=== PATIENT | female | born 1930 | race Caucasian/White ===

== ENCOUNTER 2016-06-28 16:25 | Inpatient (IN) | payer MEDICARE, OTHER ==
[~2016-06-28] VITALS: Ht 157.5 cm; Wt 54.3 kg
[~2016-06-28 16:25] MED LIST: AMLO-145 PO; ART2 PO; ATEN-138 PO; AZIL1TAB PO; CLON-339 PO; DEXILENT PO; DICL100G37 TOP; FAMO20TA44 PO; IMIP10TA2 PO; ISOS60TA52 PO; MONT10TA21 PO; RASA1TAB PO; TRAM50TA2 PO; [UNRECOGNIZED DRUG - CODE] PO
[2016-06-28] MEDS ORDERED: CEFEPIME 2GM/50 ML (PMX) 50 ML IVPB STA ×2 (16:28→17:42)
[2016-06-28] MEDS ORDERED: SOD CHLORIDE 0.9% 1,000 ML IV STA ×2 (16:29)
[2016-06-28] MEDS ORDERED: VANCOMYCIN 1 GM (PMX) 250 ML IVPB ONE ×2 (16:30→18:00)
[2016-06-28 17:08] LABS: ADD SCAN DIFF NO
[2016-06-28 17:10] LABS: BASOPHILS % 0.2 % (0.0-2.0); EOSINOPHILS % 0.1 % (0.0-7.0); HEMATOCRIT 36.9 % (37.0-47.0); HEMOGLOBIN 11.7 g/dl (12.0-16.0); LYMPHOCYTES # 0.7 10^3/ul (0.8-2.9); LYMPHOCYTES % 8.5 % (15.0-51.0); MEAN CORPUSCULAR HEMOGLOBIN 28.1 pg (29.0-33.0); MEAN CORPUSCULAR HGB CONC 31.7 g/dl (32.0-37.0); MEAN CORPUSCULAR VOLUME 88.5 fl (82.0-101.0); MONOCYTE # 0.8 10^3/ul (0.3-0.9); MONOCYTES % 9.3 % (0.0-11.0); NEUTROPHIL # 6.8 10^3/ul (1.6-7.5); NEUTROPHILS % 81.7 % (39.0-77.0); PLATELET COUNT 159 10^3/UL (140-415); RED BLOOD COUNT 4.17 10^6/ul (4.20-5.40); RED CELL DISTRIBUTION WIDTH 13.1 % (11.5-14.5); WHITE BLOOD COUNT 8.4 10^3/ul (4.8-10.8)
[2016-06-28 17:25] LABS: INR 0.95; PROTIME 12.7 Sec (12.2-14.2)
[2016-06-28 17:26] LABS: PARTIAL THROMBOPLASTIN TIME 29.9 Sec (25.0-35.0)
[2016-06-28 17:46] LABS: ADD UMIC YES; URINE BILIRUBIN (Dip) NEGATIVE (NEGATIVE); URINE BLOOD (Dip) 3+ (NEGATIVE); URINE COLOR LT. YELLOW (YELLOW); URINE GLUCOSE (Dip) NEGATIVE (NEGATIVE); URINE KETONES (Dip) NEGATIVE (NEGATIVE); URINE LEUKOCYTE ESTERASE (Dip) 2+ (NEGATIVE); URINE NITRITE (Dip) POSITIVE (NEGATIVE); URINE TOTAL PROTEIN (Dip) TRACE (NEGATIVE); URINE UROBILINOGEN (Dip) 0.2 E.U./dL (0.1-1.0)
[2016-06-28 17:55] LABS: BACTERIA,URINE FEW; SQUAMOUS EPITHELIAL CELL,UR MODERATE; URINE RBCS 0-2 /HPF (0)
[2016-06-28] MEDS ORDERED: ACETAMINOPHEN 325 MG TAB PO ONE (18:00)
--- NOTE | 2016-06-28 18:06 | RADRPT ---
PROCEDURE: XR Chest 1 view. CLINICAL INDICATION: Shortness of breath, possible sepsis. TECHNIQUE: AP views of the chest were obtained. COMPARISON: June 19, 2015 FINDINGS: The heart is large. Calcified atherosclerosis is noted in the aorta. The lungs are hypoinflated. E ventration of the right hemidiaphragm is identified. Atelectasis versus mild infiltrates are identi fied in the medial right lower lobe. Atelectasis is noted at the left lung base. The osseous struct ures are osteopenic, but appear grossly intact. Degenerative changes are seen in the shoulders. IMPRESSION: Cardiomegaly with calcified atherosclerosis in the aorta. Eventration of the right hemidiaphragm. Atelectasis versus mild infiltrates in the medial right low er lobe. Atelectasis at the left lung base. RPTAT: AA .Ta Urrutia MD, Date Time Electronically viewed and signed by .Ta Urrutia MD, MD on 06/28/2016 18:06 .P/
[2016-06-28 18:07] LABS: ALANINE AMINOTRANSFERASE 79 IU/L (13-69); ALBUMIN 3.7 g/dl (3.3-4.9); ALKALINE PHOSPHATASE 155 IU/L (42-121); ANION GAP 12 (8-16); ASPARTATE AMINO TRANSFERASE 89 IU/L (15-46); BILIRUBIN,INDIRECT 0.1 mg/dl (0-1.1); BILIRUBIN,TOTAL 0.1 mg/dl (0.2-1.3); BLOOD UREA NITROGEN 23 mg/dl (7-20); CARBON DIOXIDE 24 mmol/L (21-31); CHLORIDE 102 mmol/L (97-110); CREATININE 0.71 mg/dl (0.44-1.00); GLUCOSE 132 mg/dl (70-220); POTASSIUM 4.4 mmol/L (3.5-5.1); SODIUM 134 mmol/L (135-144); TOTAL PROTEIN 7.4 g/dl (6.1-8.1)
[2016-06-28 18:23] LABS: TROPONIN-I < 0.012 ng/ml (0.00-0.12)
[2016-06-28] MEDS ORDERED: MECL-90 PO (18:30)
[2016-06-28] MEDS ORDERED: DEXL60CA2 PO (18:31)
[2016-06-28] MEDS ORDERED: OLME1TAB35 PO (18:31)
[2016-06-28] MEDS ORDERED: FAMO40TA52 PO (18:32)
[2016-06-28] MEDS ORDERED: OXYB5TAB7 PO (18:35)
--- NOTE | 2016-06-28 18:38 | RADRPT ---
PROCEDURE: CT abdomen and pelvis without contrast. CLINICAL INDICATION: Possible sepsis TECHNIQUE: CT scan of the abdomen and pelvis without contrast was performed. Sagittal and coronal reformatted images were obtained from the axial source images. CTDI = 7.68 mGy; DLP = 410.13 mGy-cm COMPARISON: None available. FINDINGS: Visualized lower thorax: Calcifications and scarring within the right middle lobe are present with mild elevation of the right hemidiaphragm. Mild basilar fibrotic changes are seen bilaterally with traction bronchiectasis. The visualized heart is mildly enlarged. There is no evidence for pleural effusion. Liver, gallbladder, pancreas and spleen: The liver is normal and size, contour and attenuation. Th ere is no evidence for a liver mass or ductal dilatation, a few tiny granulomatous type calcificatio ns are present. Calcified gallstones are seen without evidence of cholecystitis. No common bile du ct abnormality is demonstrated. Fatty replacement of the pancreas is present without pancreatitis, mass or ductal dilatation. The spleen is normal in size. Adrenal glands and genitourinary system: The adrenal glands are normal bilaterally. The right kidne y has no evidence of calculus or hydronephrosis, a simple cyst of the upper pole right kidney measur es approximately 5 cm. The left renal cortex has too small hyperdense foci each measuring approxima tely 5 mm and probably proteinaceous or hemorrhagic cyst. There is no left renal calculus or hydron ephrosis. The ureters are unremarkable. No urinary bladder abnormality is demonstrated. The uteru s has a slightly lobulated contour unable to exclude small leiomyomata. There is no evidence of ova renan or adnexal mass. Note is made of a radiopaque pessary device. Gastrointestinal system: Moderate size sliding hiatal hernia is present, the mid and distal stomach are decompressed and unremarkable. The small bowel is normal in caliber with no ileus, obstruction or wall thickening. The appendix and surrounding fat are within the limits of normal. A marked am ount of dense fecal debris is seen throughout the entire colon consistent with severe constipation p attern. A few diverticula scattered throughout the colon are present. There is no evidence for col itis or diverticulitis. Peritoneum, retroperitoneum, lymph nodes and vessels: The abdominal aorta is normal in caliber. The re is moderate to severe aortic and iliac system atherosclerotic calcification. The inferior vena c neno is unremarkable. There is no evidence for adenopathy or mass. There is no ascites. No pneumope ritoneum is present. There is no evidence of intraperitoneal or pelvic abscess Osseous structures and musculoskeletal findings: Demineralization consistent with osteoporosis with chronic compression fractures at T8, L1, L2, L3 and L4, vertebral augmentation changes seen at L2 a nd L3. Increased kyphotic curvature at the thoracolumbar junction is present. There is no evidence of lytic or blastic lesion. No muscular abnormality or soft tissue pathology is present. RPTAT:HJJR IMPRESSION: 1. No evidence of abscess or inflammation to help correlate with the provided history. 2. Chronic granulomatous disease and scarring of the right lower lobe with elevation of the right h emidiaphragm and cardiomegaly. 3. Cholelithiasis without evidence of cholecystitis. 4. Bilateral renal cysts, on the left increased density within the cortical cysts likely hemorrhage or debris. 5. 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 6. Severe constipation pattern without evidence of colitis or diverticulitis. 7. Hiatal hernia. 8. Osteoporosis with chronic osteoporotic compression fractures of the thoracolumbar spine and dhaliwal ges of prior vertebral augmentation at L2 and L3. Physician Zaina Date Time Electronically viewed and signed by Physician Zaina on 06/28/2016 18:37 JR/
[2016-06-28 19:00] VITALS: TEMP 98.3
[2016-06-28] MEDS ORDERED: ACETAMINOPHEN 325 MG TAB PO PRN (19:30)
[2016-06-28] MEDS ORDERED: ONDANSETRON 4 MG INJ IV PRN (19:30)
--- NOTE | 2016-06-28 20:54 | ERA ---
ER Documentation Chief Complaint Date/Time DATE: 06/28/16 TIME: 20:51 Chief Complaint NV X 3 DAYS NOT TAKING ANYTHING PO AND HAS BILAT HIP PAIN HPI Patient is a 5-year-old female with hypertension and Parkinson's disease who presents with fever. The patient was brought in by ambulance. The fever started 2 days ago. The family gave Tylenol but the fever came back. The patient has vomiting and "acid is going up". Upon review of old medical records the patient has been here before. The patient has lower pelvic pain. I met the patient's primary doctor is Dr. Quiroz. ROS All systems reviewed and are negative except as per history of present illness. Medications Home Meds Reported Medications Oxybutynin Chloride* (Ditropan*) 5 Mg Tab, 5 MG PO DAILY, TAB 06/28/16 Famotidine* (Famotidine*) 40 Mg Tablet, 40 MG PO HS, #30 TAB 06/28/16 Dexlansoprazole (Dexilant) 60 Mg Cap.mp, 60 MG PO DAILY, #30 CAP 06/28/16 Vblcvdpcrm-Sebydwjgcj-DOIJ (Tribenzor) 40-10-12.5 Mg Tablet, 1 TAB PO DAILY, TAB 06/28/16 Meclizine Hcl* (Bonine*) 25 Mg Tab.chew, 25 MG PO Q8H Y for VERTIGO, TAB.CHEW 06/28/16 Clonidine HCl (Clonidine HCl ER) 0.1 Mg Tab.er.12h, 0.1 MG PO HTN 09/17/13 Montelukast Sodium* (Singulair*) 10 Mg Tablet, 10 MG PO DAILY, TAB 09/17/13 Trihexyphenidyl Hcl* (Trihexyphenidyl Hcl*) 2 Mg Tab, 1 MG PO AM, TAB 09/17/13 Imipramine Hcl* (Imipramine Hcl*) 10 Mg Tablet, 10 MG PO HS, TAB 09/17/13 Rasagiline Mesylate* (Azilect*) 1 Mg Tablet, 1 MG PO DAILY 06/28/12 Isosorbide Mononitrate* (Imdur*) 60 Mg Tab.sr.24h, 60 MG PO DAILY 06/28/12 Atenolol (Tenormin) 25 Mg Tab, 25 MG PO DAILY 5/10/13 Discontinued Reported Medications Amlodipine Besylate* (Amlodipine Besylate*) 5 Mg Tablet, 5 MG PO DAILY, TAB 09/17/13 Tramadol HCl (Tramadol HCl) 50 Mg Tab, 50 MG PO TID Y for PAIN, TAB 09/17/13 Diclofenac Sodium* (Voltaren* Gel) 1% -100 Gm Gel, 4 GM TOP QID Y for PAIN, TUB 09/17/13 [Dexilent] No Conflict Check, 60 MG PO DAILY 09/17/13 Famotidine* (Pepcid* AC) 20 Mg Tablet, 20 MG PO HS 05/10/13 Azilsartan-Chlorthalidone (Edarbyclor) 1 Each Tablet, 1 EACH PO DAILY 05/10/13 Imipramine Hcl (Tofranil) 10 Mg Tab, 10 MG PO DAILY 06/28/12 Allergies Allergies: Coded Allergies: No Known Allergies (Verified Allergy, Mild, 06/28/16) PMhx/Soc History of Surgery: Yes (Hernia, shoulder and back, [place]) Anesthesia Reaction: No Hx Neurological Disorder: No Hx Respiratory Disorders: Yes (Short of breath) Hx Cardiac Disorders: Yes (HTN) Hx Psychiatric Problems: No Hx Miscellaneous Medical Probl: Yes (PD,htn, DM, anxiety,dyspepsia) Hx Alcohol Use: No Hx Substance Use: No Hx Tobacco Use: No Smoking Status: Never smoker FmHx Family History: No diabetes Physical Exam Vitals Vital Signs Date Time Temp Pulse Resp B/P Pulse Ox O2 Delivery O2 Flow Rate FiO2 06/28/16 20:04 66 20 104/59 96 Room Air 06/28/16 19:00 98.3 70 16 108/55 97 Room Air 06/28/16 16:42 101.5 88 18 115/85 95 Physical Exam Const: Mild distress Head: Atraumatic Eyes: Normal Conjunctiva ENT: Normal External Ears, Nose and Mouth. Neck: Full range of motion..~ No meningismus. Resp: Clear to auscultation bilaterally Cardio: Regular rate and rhythm, no murmurs Abd: Soft, lower abdominal pain bilaterally without guarding Skin: No petechiae or rashes Back: No midline or flank tenderness Ext: No cyanosis, or edema Neur: Awake but confused Result Diagram: 06/28/16 1640 06/28/16 1640 Results 24 hrs Laboratory Tests Test 06/28/16 16:40 06/28/16 17:20 06/28/16 18:40 White Blood Count 8.410^3/ul Red Blood Count 4.1710^6/ul Hemoglobin 11.7g/dl Hematocrit 36.9% Mean Corpuscular Volume 88.5fl Mean Corpuscular Hemoglobin 28.1pg Mean Corpuscular Hemoglobin Concent 31.7g/dl Red Cell Distribution Width 13.1% Platelet Count 78120^3/UL Mean Platelet Volume 10.0fl Neutrophils % 81.7% Lymphocytes % 8.5% Monocytes % 9.3% Eosinophils % 0.1% Basophils % 0.2% Nucleated Red Blood Cells % 0.0/100WBC Neutrophils # 6.810^3/ul Lymphocytes # 0.710^3/ul Monocytes # 0.810^3/ul Eosinophils # 0.010^3/ul Basophils # 0.010^3/ul Nucleated Red Blood Cells # 0.010^3/ul Prothrombin Time 12.7Sec Prothrombin Time Ratio 1.0 INR International Normalized Ratio 0.95 Activated Partial Thromboplast Time 29.9Sec Sodium Level 134mmol/L Potassium Level 4.4mmol/L Chloride Level 102mmol/L Carbon Dioxide Level 24mmol/L Anion Gap 12 Blood Urea Nitrogen 23mg/dl Creatinine 0.71mg/dl Glucose Level 132mg/dl Lactic Acid Level 0.9mmol/L 1.1mmol/L Calcium Level 9.0mg/dl Total Bilirubin 0.1mg/dl Direct Bilirubin 0.00mg/dl Indirect Bilirubin 0.1mg/dl Aspartate Amino Transf (AST/SGOT) 89IU/L Alanine Aminotransferase (ALT/SGPT) 79IU/L Alkaline Phosphatase 155IU/L Troponin I < 0.012ng/ml Total Protein 7.4g/dl Albumin 3.7g/dl Globulin 3.70g/dl Albumin/Globulin Ratio 1.00 Urine Color LT. YELLOW Urine Clarity CLEAR Urine pH 5.5 Urine Specific Liscomb 1.015 Urine Ketones NEGATIVE Urine Nitrite POSITIVE Urine Bilirubin NEGATIVE Urine Urobilinogen 0.2 E.U./dL Urine Leukocyte Esterase 2+ Urine Microscopic RBC 0-2/HPF Urine Microscopic WBC 10-25/HPF Urine Squamous Epithelial Cells MODERATE Urine Bacteria FEW Urine Hemoglobin 3+ Urine Glucose NEGATIVE% Urine Total Protein TRACE Current Medications Medications (Trade) Dose Ordered Sig/Livan Route PRN Reason Start Time Stop Time Status Last Admin Dose Admin Cefepime HCl 50 ml @ 100 mls/hr ONCE STAT IVPB 06/28/16 16:28 06/28/16 16:57 DC 06/28/16 16:42 Vancomycin HCl 250 ml @ 125 mls/hr ONCE ONCE IVPB 06/28/16 16:30 06/28/16 18:29 DC 06/28/16 17:09 Sodium Chloride 1,000 ml @ 1,000 mls/hr Q1H STAT IV 06/28/16 16:29 06/28/16 17:28 DC 06/28/16 16:41 Sodium Chloride (NS) 1,000 ml @ 1,000 mls/hr Q1H STAT IV 06/28/16 16:29 06/28/16 17:28 DC 06/28/16 16:41 Acetaminophen 650 mg 650 mg ONCE ONCE PO 06/28/16 18:00 06/28/16 18:01 DC 06/28/16 18:07 Cefepime HCl 50 ml @ 100 mls/hr ONCE STAT IVPB 06/28/16 17:42 06/28/16 18:15 DC Vancomycin HCl (Vancocin) 250 ml @ 125 mls/hr ONCE ONCE IVPB 06/28/16 18:00 06/28/16 18:15 DC Ondansetron HCl (Zofran Inj) 4 mg BRIDGE ORDER PRN IV NAUSEA AND/OR VOMITING 06/28/16 19:30 06/29/16 19:29 Acetaminophen (Tylenol Tab) 650 mg ER BRIDGE PRN PO MILD PAIN/FEVER 06/28/16 19:30 06/29/16 19:29 Procedures/MDM EKG read by me: Rate/Rhythm: First-degree AV block at a rate of 88 Intervals: Prolonged HI interval Impression: First-degree AV block without ischemia PROCEDURE: CT abdomen and pelvis without contrast. CLINICAL INDICATION: Possible sepsis TECHNIQUE: CT scan of the abdomen and pelvis without contrast was performed. Sagittal and coronal reformatted images were obtained from the axial source images. CTDI = 7.68 mGy; DLP = 410.13 mGy-cm COMPARISON: None available. FINDINGS: Visualized lower thorax: Calcifications and scarring within the right middle lobe are present with mild elevation of the right hemidiaphragm. Mild basilar fibrotic changes are seen bilaterally with traction bronchiectasis. The visualized heart is mildly enlarged. There is no evidence for pleural effusion. Liver, gallbladder, pancreas and spleen: The liver is normal and size, contour and attenuation. There is no evidence for a liver mass or ductal dilatation, a few tiny granulomatous type calcifications are present. Calcified gallstones are seen without evidence of cholecystitis. No common bile duct abnormality is demonstrated. Fatty replacement of the pancreas is present without pancreatitis , mass or ductal dilatation. The spleen is normal in size. Adrenal glands and genitourinary system: The adrenal glands are normal bilaterally. The right kidney has no evidence of calculus or hydronephrosis, a simple cyst of the upper pole right kidney measures approximately 5 cm. The left renal cortex has too small hyperdense foci each measuring approximately 5 mm and probably proteinaceous or hemorrhagic cyst. There is no left renal calculus or hydronephrosis. The ureters are unremarkable. No urinary bladder abnormality is demonstrated. The uterus has a slightly lobulated contour unable to exclude small leiomyomata. There is no evidence of ovarian or adnexal mass. Note is made of a radiopaque pessary device. Gastrointestinal system: Moderate size sliding hiatal hernia is present, the mid and distal stomach are decompressed and unremarkable. The small bowel is normal in caliber with no ileus, obstruction or wall thickening. The appendix and surrounding fat are within the limits of normal. A marked amount of dense fecal debris is seen throughout the entire colon consistent with severe constipation pattern. A few diverticula scattered throughout the colon are present. There is no evidence for colitis or diverticulitis. Peritoneum, retroperitoneum, lymph nodes and vessels: The abdominal aorta is normal in caliber. There is moderate to severe aortic and iliac system atherosclerotic calcification. The inferior vena cava is unremarkable. There is no evidence for adenopathy or mass. There is no ascites. No pneumoperitoneum is present. There is no evidence of intraperitoneal or pelvic abscess Osseous structures and musculoskeletal findings: Demineralization consistent with osteoporosis with chronic compression fractures at T8, L1, L2, L3 and L4, vertebral augmentation changes seen at L2 and L3. Increased kyphotic curvature at the thoracolumbar junction is present. There is no evidence of lytic or blastic lesion. No muscular abnormality or soft tissue pathology is present. RPTAT:HJJR IMPRESSION: 1. No evidence of abscess or inflammation to help correlate with the provided history. 2. Chronic granulomatous disease and scarring of the right lower lobe with elevation of the right hemidiaphragm and cardiomegaly. 3. Cholelithiasis without evidence of cholecystitis. 4. Bilateral renal cysts, on the left increased density within the cortical cysts likely hemorrhage or debris. 5. 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 6. Severe constipation pattern without evidence of colitis or diverticulitis. 7. Hiatal hernia. 8. Osteoporosis with chronic osteoporotic compression fractures of the thoracolumbar spine and changes of prior vertebral augmentation at L2 and L3. Physician Zaina Date Time Electronically viewed and signed by Physician Zaina on 06/28/2016 18:37 PROCEDURE: XR Chest 1 view. CLINICAL INDICATION: Shortness of breath, possible sepsis. TECHNIQUE: AP views of the chest were obtained. COMPARISON: June 19, 2015 FINDINGS: The heart is large. Calcified atherosclerosis is noted in the aorta. The lungs are hypoinflated. Eventration of the right hemidiaphragm is identified. Atelectasis versus mild infiltrates are identified in the medial right lower lobe. Atelectasis is noted at the left lung base. The osseous structures are osteopenic, but appear grossly intact. Degenerative changes are seen in the shoulders. IMPRESSION: Cardiomegaly with calcified atherosclerosis in the aorta. Eventration of the right hemidiaphragm. Atelectasis versus mild infiltrates in the medial right lower lobe. Atelectasis at the left lung base. RPTAT: AA .Ta Urrutia MD, MD Date Time Electronically viewed and signed by .Ta Urruita MD, on 06/28/2016 18:06 Admit MDM: Patient's infectious symptoms have not stabilized and the patient is at risk of rapid decompensation. The patient will be admitted for careful hydration, antibiotic therapy, and infectious source control. Severe Sepsis criteria: Infectious source: Cystitis End organ damage indicated by: No end organ damage at this time Sepsis Management: Time of recognition of sepsis: Upon arrival Within 3 hours of recognition: Blood cultures x 2 before broad-spectrum antibiotics: Yes 30 ml/kg NS bolus Completed Initial lactate Normal Repeat lactate Normal Time of recognition of septic shock: No septic shock Septic Shock Assessment: Any lactic acid > 4.0 No Persistent hypotension (SBP < 90 or 40 mmHg drop, MAP < 65) despite 30 mL/kg IV fluid bolus No Volume Re-assessment for Septic Shock (post 30 ml/kg bolus): No septic shock at this time Persistent Hypotension Treatment: Comfort care No Central line Not Required Vasopressor started Not required I considered further perfusion assessment with CVP measurement, SCVO2, bedside ultrasound volume assessment, passive leg raise, trial of further fluid bolus. And proceeded with 30 ml/kg fluid bolus of NSS, broad spectrum antibiotics, and admission. Accepting Care Team Current data and ongoing care discussed. Admitting Physician: Dr. Nascimento from the panel team Centrifugal Machine Tender(s): None Outstanding Data: Culture results and repeat lactic acid Critical Care: Critical care time 35 minutes excluding all billable procedures Emergent fluid management while maintaining close respiratory support. Provision of immediate and broad-spectrum antibiotic therapy. Simultaneous assessment for possible sources in order to direct targeted therapy. Consideration for invasive and chemical support to prevent cardiopulmonary collapse. Departure Diagnosis: Primary Impression: Sepsis Qualified Code: A41.9 - Sepsis, due to unspecified organism Additional Impressions: Cystitis Anemia Qualified Code: D64.9 - Anemia, unspecified type Condition: PARAMJIT Ventura MD June 28, 2016 20:54
[2016-06-28 23:00] VITALS: Ht 157.5 cm; Wt 54.3 kg
[2016-06-28 23:30] VITALS: BP 151/70; PULSE 74; RESP 18
[2016-06-29] MEDS ORDERED: CEFTRIAXONE 1 GM/50 ML (PMX) 50 ML IVPB SCH (00:30)
[2016-06-29] MEDS: LOSARTAN 50 MG TAB PO SCH ×2 (02:00→09:28)
[2016-06-29] MEDS: MECLIZINE 25 MG TAB PO PRN (04:14)
[2016-06-29] MEDS: PANTOPRAZOLE (EC) 40 MG TAB PO SCH (05:13)
--- NOTE | 2016-06-29 05:20 | HP ---
DATE OF ADMISSION: 06/28/2016 TIME: 2300 CHIEF COMPLAINT: Bilateral hip pain, decreased p.o. intake and fever. HISTORY OF PRESENT ILLNESS: The patient is an 85-year-old female with a history of Parkinson's dis ease, hypertension, GERD, and dementia who was brought to the ER with the above stated chief complai nt. Symptoms have been going on for about 3 to 4 days. Because of the hip pain, ambulation has bee n very limited. The patient is a poor historian and as such, information is gathered from chart rev iew and from the ER physician. When the patient presented to the ER, she was febrile with a temperature of 101.5. Laboratory value shows a sodium of 134, BUN 23, AST 89, ALT 79, alkaline phosphatase 155, hemoglobin 11.7. Urinalys is was consistent with a UTI. Chest x-ray shows cardiomegaly and atelectasis versus mild infiltrati on in the medial right lower lobe and atelectasis of the left lung base. CT abdomen and pelvis with out contrast shows chronic granulomatous change of the right lower lobe, cholelithiasis without evid ence of cholecystitis and probable leiomyomatous uterus, severe constipation pattern without evidenc e of colitis or diverticulitis, hiatal hernia and osteoporosis with chronic osteoporotic compression fracture of the thoracolumbar spine, also noted was bilateral renal cysts, on the left increased de nsity within the cortical cysts likely hemorrhage or debris. The patient was started on vancomycin, cefepime and has been given IV fluids while she was in the ER. REVIEW OF SYSTEMS: Unable to fully assess, but negative except as mentioned in HPI. PAST MEDICAL HISTORY: As per HPI. PAST SURGICAL HISTORY: Hip surgery. SOCIAL HISTORY: Denied history of tobacco, alcohol or illicit drug use. ALLERGIES: NO KNOWN DRUG ALLERGIES. HOME MEDICATIONS: 1. Atenolol. 2. Clonidine. 3. Imdur. 4. Tribenzor 5. Imipramine. 6. Azilect. 7. Singulair. 8. Dexilant. 9. Pepcid. 10. Meclizine. 11. Oxybutynin. PHYSICAL EXAMINATION: VITAL SIGNS: Stable. GENERAL: The patient lying in bed, sleepy, arousable. She is not fully oriented. Noted was upper extremity parkinsonian type tremor. HEENT: No obvious head deformity. Pupils reactive to light. CARDIOVASCULAR: Regular rate and rhythm with an extra sound. LUNGS: Decreased breath sounds at the bases anteriorly. ABDOMEN: Soft, nondistended, slight grimace is noted to deep palpation diffusely and has positive b owel sounds. EXTREMITIES: No edema. LABORATORY: Pertinent positive labs as mentioned in HPI. IMAGING: Chest x-ray and CT abdomen and pelvis without contrast with results as mentioned in the HP I. IMPRESSION: 1. Developing sepsis, secondary to pneumonia, urinary tract infection and possibly right lower lobe pneumonia. 2. Bilateral hip pain. 3. Urinary tract infection. 4. Probable right-sided pneumonia. 5. History of Parkinson's disease. 6. History of hypertension. 7. History of gastroesophageal reflux disease. PLAN: The patient's bilateral hip pain could possibly be from arthritic change. No trauma was repo rted. We will provide pain medication and the patient will be reevaluated by physical therapist for UTI and possible right-sided pneumonia. She will be placed antibiotics. She will have a formal s peech/swallow evaluation and then will resume her home medication with adjustment as needed. Will c orrect electrolytes as needed. If no improvement with her liver enzymes, will consider right upper quadrant ultrasound and additional workup as needed. Further workup and management per clinical course. Dictated By: BENY GREEN/CARLOS Conf#: [id number] DID#: [id number]
[2016-06-29 05:32] LABS: ADD SCAN DIFF NO
[2016-06-29 05:35] LABS: BASOPHILS % 0.2 % (0.0-2.0); EOSINOPHILS % 0.1 % (0.0-7.0); HEMATOCRIT 33.7 % (37.0-47.0); HEMOGLOBIN 11.1 g/dl (12.0-16.0); LYMPHOCYTES # 1.4 10^3/ul (0.8-2.9); LYMPHOCYTES % 15.2 % (15.0-51.0); MEAN CORPUSCULAR HEMOGLOBIN 28.9 pg (29.0-33.0); MEAN CORPUSCULAR HGB CONC 32.9 g/dl (32.0-37.0); MEAN CORPUSCULAR VOLUME 87.8 fl (82.0-101.0); MEAN PLATELET VOLUME 9.7 fl (7.4-10.4); MONOCYTE # 1.2 10^3/ul (0.3-0.9); MONOCYTES % 12.7 % (0.0-11.0); NEUTROPHIL # 6.5 10^3/ul (1.6-7.5); NEUTROPHILS % 71.4 % (39.0-77.0); PLATELET COUNT 160 10^3/UL (140-415); RED BLOOD COUNT 3.84 10^6/ul (4.20-5.40); RED CELL DISTRIBUTION WIDTH 13.2 % (11.5-14.5); WHITE BLOOD COUNT 9.1 10^3/ul (4.8-10.8)
[2016-06-29 06:45] LABS: ALBUMIN 2.9 g/dl (3.3-4.9)
[2016-06-29 06:46] LABS: POTASSIUM 3.6 mmol/L (3.5-5.1)
[2016-06-29 06:48] LABS: ALBUMIN/GLOBULIN RATIO 0.9; BILIRUBIN,INDIRECT 0.2 mg/dl (0-1.1); BILIRUBIN,TOTAL 0.2 mg/dl (0.2-1.3); CREATININE 0.59 mg/dl (0.44-1.00); TOTAL PROTEIN 6.1 g/dl (6.1-8.1)
[2016-06-29 06:49] LABS: CALCIUM 8.3 mg/dl (8.4-10.2); MAGNESIUM 1.6 mg/dl (1.7-2.5); PHOSPHORUS 3.1 mg/dl (2.5-4.9)
[2016-06-29 07:30] VITALS: BP 126/64; RESP 19
[2016-06-29] MEDS: TRIHEXYPHENIDYL 2 MG TAB PO SCH (09:00)
[2016-06-29] MEDS: RASAGILINE MESYLATE 1 MG TAB PO SCH (09:27)
[2016-06-29] MEDS: ISOSORBIDE MONONITRATE(SR)60 MG TAB PO SCH (09:27)
[2016-06-29] MEDS: AMLODIPINE 10 MG TAB PO SCH (09:28)
[2016-06-29] MEDS: FAMOTIDINE 20 MG TAB PO SCH (09:28)
[2016-06-29] MEDS: HYDROCHLOROTHIAZIDE 12.5 MG CAP PO SCH (09:28)
[2016-06-29] MEDS: OXYBUTYNIN 5 MG TAB PO SCH (09:29)
[2016-06-29] MEDS: ATENOLOL 25 MG TAB PO SCH (09:29)
--- NOTE | 2016-06-29 13:26 | PN ---
Date/Time of Note Date/Time of Note DATE: 06/29/16 TIME: 13:24 Assessment/Plan VTE Prophylaxis VTE Prophylaxis Intervention: SCD's Lines/Catheters IV Catheter Type (from Nrs): Saline [facility] Assessment/Plan Chief Complaint/Hosp Course IMPRESSION: 1. Developing sepsis, secondary to pneumonia, urinary tract infection and possibly right lower lobe pneumonia. 2. Bilateral hip pain. 3. Urinary tract infection. 4. Probable right-sided pneumonia. 5. History of Parkinson's disease. 6. History of hypertension. 7. History of gastroesophageal reflux disease. PLAN: The patient's bilateral hip pain could possibly be from arthritic change. No trauma was reported. We will provide pain medication and the patient will be reevaluated by physical therapist for UTI and possible right- sided pneumonia. . She will have a formal speech/swallow evaluation and then will resume her home medication with adjustment as needed. Will correct electrolytes as needed. If no improvement with her liver enzymes, will consider right upper quadrant ultrasound and additional workup as needed. Further workup and management per clinical course. Problems: Subjective 24 Hr Interval Summary Free Text/Dictation No acute changes Patient denies of any abdominal discomfort No shortness of breath or chest pain Exam/Review of Systems Vital Signs Vitals Vital Signs Date Time Temp Pulse Resp B/P Pulse Ox O2 Delivery O2 Flow Rate FiO2 06/29/16 07:30 100.4 86 19 126/64 94 06/28/16 23:30 Room Air Intake and Output 06/28/16 06/28/16 06/29/16 15:00 23:00 07:00 Intake Total 120 ml Balance 120 ml Exam General: The patient is well-developed, Not in acute distress. HEENT: Atraumatic, normocephalic. The pupils are equal and round . Neck: Supple Chest: Normal expansion of the thorax during inspiration Lungs: Decreased breath sounds bilateral lower lung field Heart: Normal S1-S2, Regular rhythm and rate. Abdomen: Soft , nontender, nondistended , bowel sounds are present. Extremities: Normal to inspection, no edema no cyanosis Neurologic: The patient is awake, Results Result Diagram: 06/29/16 0505 06/29/16 0500 Results 24 hrs Laboratory Tests Test 06/28/16 16:40 06/28/16 17:20 06/28/16 18:40 06/28/16 20:30 White Blood Count 8.4 # Red Blood Count 4.17 L Hemoglobin 11.7 L Hematocrit 36.9 L Mean Corpuscular Volume 88.5 Mean Corpuscular Hemoglobin 28.1 L Mean Corpuscular Hemoglobin Concent 31.7 L Red Cell Distribution Width 13.1 Platelet Count 159 Mean Platelet Volume 10.0 Neutrophils % 81.7 H Lymphocytes % 8.5 L Monocytes % 9.3 Eosinophils % 0.1 Basophils % 0.2 Nucleated Red Blood Cells % 0.0 Neutrophils # 6.8 Lymphocytes # 0.7 L Monocytes # 0.8 Eosinophils # 0.0 Basophils # 0.0 Nucleated Red Blood Cells # 0.0 Prothrombin Time 12.7 Prothrombin Time Ratio 1.0 INR International Normalized Ratio 0.95 Activated Partial Thromboplast Time 29.9 Sodium Level 134 L Potassium Level 4.4 Chloride Level 102 Carbon Dioxide Level 24 Anion Gap 12 Blood Urea Nitrogen 23 H Creatinine 0.71 Glucose Level 132 Lactic Acid Level 0.9 1.1 0.8 Calcium Level 9.0 Total Bilirubin 0.1 L Direct Bilirubin 0.00 Indirect Bilirubin 0.1 Aspartate Amino Transf (AST/SGOT) 89 H Alanine Aminotransferase (ALT/SGPT) 79 H Alkaline Phosphatase 155 H Troponin I < 0.012 Total Protein 7.4 Albumin 3.7 Globulin 3.70 H Albumin/Globulin Ratio 1.00 Urine Color LT. YELLOW Urine Clarity CLEAR Urine pH 5.5 Urine Specific [place] 1.015 Urine Ketones NEGATIVE Urine Nitrite POSITIVE H Urine Bilirubin NEGATIVE Urine Urobilinogen 0.2 E.U./dL Urine Leukocyte Esterase 2+ H Urine Microscopic RBC 0-2 Urine Microscopic WBC 10-25 Urine Squamous Epithelial Cells MODERATE Urine Bacteria FEW Urine Hemoglobin 3+ H Urine Glucose NEGATIVE Urine Total Protein TRACE Test 06/29/16 05:00 06/29/16 05:05 Sodium Level 138 Potassium Level 3.6 Chloride Level 105 Carbon Dioxide Level 22 Anion Gap 15 Blood Urea Nitrogen 16 Creatinine 0.59 Glucose Level 114 Calcium Level 8.3 L Phosphorus Level 3.1 Magnesium Level 1.6 L Total Bilirubin 0.2 Direct Bilirubin 0.00 Indirect Bilirubin 0.2 Aspartate Amino Transf (AST/SGOT) 52 H Alanine Aminotransferase (ALT/SGPT) 64 Alkaline Phosphatase 111 Total Protein 6.1 # Albumin 2.9 L Globulin 3.20 Albumin/Globulin Ratio 0.90 White Blood Count 9.1 Red Blood Count 3.84 L Hemoglobin 11.1 L Hematocrit 33.7 L Mean Corpuscular Volume 87.8 Mean Corpuscular Hemoglobin 28.9 L Mean Corpuscular Hemoglobin Concent 32.9 Red Cell Distribution Width 13.2 Platelet Count 160 Mean Platelet Volume 9.7 Neutrophils % 71.4 Lymphocytes % 15.2 Monocytes % 12.7 H Eosinophils % 0.1 Basophils % 0.2 Nucleated Red Blood Cells % 0.0 Neutrophils # 6.5 Lymphocytes # 1.4 Monocytes # 1.2 H Eosinophils # 0.0 Basophils # 0.0 Nucleated Red Blood Cells # 0.0 Medications Medications Current Medications Atenolol (Tenormin) 25 mg DAILY PO Last administered on 06/29/16 09:29; Admin Dose 25 MG; Start 06/29/16 at 09:00 Imipramine HCl (Tofranil) 10 mg HS PO ; Start 06/29/16 at 21:00 Isosorbide Mononitrate (Imdur) 60 mg DAILY PO Last administered on 06/29/16 09 :27; Admin Dose 60 MG; Start 06/29/16 at 09:00 Montelukast Sodium (Singulair) 10 mg HS PO ; Start 06/29/16 at 21:00 Oxybutynin Chloride (Ditropan) 5 mg DAILY PO Last administered on 06/29/16 09: 29; Admin Dose 5 MG; Start 06/29/16 at 09:00 Rasagiline (Azilect) 1 mg DAILY PO Last administered on 06/29/16 09:27; Admin Dose 1 MG; Start 06/29/16 at 09:00 Trihexyphenidyl HCl (Artane) 1 mg AM PO ; Start 06/29/16 at 09:00 Pantoprazole (Protonix Tab) 40 mg DAILY@06 PO Last administered on 06/29/16 05 :13; Admin Dose 40 MG; Start 06/29/16 at 06:00 Meclizine HCl (Antivert) 25 mg Q8H PRN PO VERTIGO Last administered on 04:14; Admin Dose 25 MG; Start 06/29/16 at 00:30 Losartan Potassium (Cozaar) 100 mg DAILY PO Last administered on 06/29/16 09: 28; Admin Dose 100 MG; Start 06/29/16 at 02:00 Famotidine 20 mg 20 mg DAILY PO Last administered on 06/29/16 09:28; Admin Dose 20 MG; Start 06/29/16 at 09:00 Ceftriaxone Sodium (Rocephin) 50 ml @ 100 mls/hr Q12H IVPB ; Start 06/29/16 at 12:30 Amlodipine Besylate (Norvasc) 10 mg DAILY PO Last administered on 06/29/16 09: 28; Admin Dose 10 MG; Start 06/29/16 at 09:00 Hydrochlorothiazide (Hydrochlorothiazide) 12.5 mg DAILY PO Last administered on 06/29/16 09:28; Admin Dose 12.5 MG; Start 06/29/16 at 09:00 SILKE COLEMAN MD June 29, 2016 13:26
[2016-06-29] MEDS: MAGNESIUM OXIDE 400 MG TAB PO SCH (14:43)
[2016-06-29] MEDS: CEFTRIAXONE 1 GM/50 ML (PMX) 50 ML IVPB SCH (14:55)
[2016-06-29 19:40] VITALS: BP 104/60; RESP 19
[2016-06-29] MEDS ORDERED: IMIPRAMINE 10 MG TAB PO SCH (21:00)
[2016-06-29] MEDS: MONTELUKAST 10 MG TAB PO SCH (21:11)
[2016-06-30] MEDS: CEFTRIAXONE 1 GM/50 ML (PMX) 50 ML IVPB SCH ×2 (00:13→11:59)
[2016-06-30] MEDS: PANTOPRAZOLE (EC) 40 MG TAB PO SCH (05:56)
[2016-06-30 06:23] LABS: ADD SCAN DIFF NO
[2016-06-30 06:35] LABS: BASOPHILS % 0.1 % (0.0-2.0); EOSINOPHILS # 0.1 10^3/ul (0.0-0.5); HEMATOCRIT 34.4 % (37.0-47.0); HEMOGLOBIN 10.8 g/dl (12.0-16.0); LYMPHOCYTES % 28.6 % (15.0-51.0); MEAN CORPUSCULAR HEMOGLOBIN 27.8 pg (29.0-33.0); MEAN CORPUSCULAR HGB CONC 31.4 g/dl (32.0-37.0); MEAN CORPUSCULAR VOLUME 88.4 fl (82.0-101.0); MEAN PLATELET VOLUME 9.9 fl (7.4-10.4); MONOCYTE # 1.1 10^3/ul (0.3-0.9); MONOCYTES % 15.9 % (0.0-11.0); NEUTROPHIL # 3.8 10^3/ul (1.6-7.5); NEUTROPHILS % 54.1 % (39.0-77.0); PLATELET COUNT 169 10^3/UL (140-415); RED BLOOD COUNT 3.89 10^6/ul (4.20-5.40); RED CELL DISTRIBUTION WIDTH 13.5 % (11.5-14.5)
[2016-06-30 06:58] LABS: ALBUMIN 2.8 g/dl (3.3-4.9); BILIRUBIN,INDIRECT 0.1 mg/dl (0-1.1); BILIRUBIN,TOTAL 0.1 mg/dl (0.2-1.3); TOTAL PROTEIN 5.9 g/dl (6.1-8.1)
[2016-06-30 07:09] LABS: CALCIUM 8.7 mg/dl (8.4-10.2); CREATININE 0.65 mg/dl (0.44-1.00); MAGNESIUM 1.9 mg/dl (1.7-2.5); POTASSIUM 3.7 mmol/L (3.5-5.1)
[2016-06-30 07:30] VITALS: BP 112/59; RESP 18
[2016-06-30] MEDS: LOSARTAN 50 MG TAB PO SCH (08:47)
[2016-06-30] MEDS: AMLODIPINE 10 MG TAB PO SCH (08:47)
[2016-06-30] MEDS: OXYBUTYNIN 5 MG TAB PO SCH (08:48)
[2016-06-30] MEDS: FAMOTIDINE 20 MG TAB PO SCH (08:48)
[2016-06-30] MEDS: HYDROCHLOROTHIAZIDE 12.5 MG CAP PO SCH (08:48)
[2016-06-30] MEDS: MAGNESIUM OXIDE 400 MG TAB PO SCH (08:48)
[2016-06-30] MEDS: ATENOLOL 25 MG TAB PO SCH (08:49)
[2016-06-30] MEDS: MECLIZINE 25 MG TAB PO PRN (08:49)
[2016-06-30] MEDS: ISOSORBIDE MONONITRATE(SR)60 MG TAB PO SCH (08:50)
[2016-06-30] MEDS: RASAGILINE MESYLATE 1 MG TAB PO SCH ×2 (09:00→10:42)
[2016-06-30] MEDS: TRIHEXYPHENIDYL 2 MG TAB PO SCH (09:00)
--- NOTE | 2016-06-30 12:56 | PN ---
Date/Time of Note Date/Time of Note DATE: 06/30/16 TIME: 12:55 Assessment/Plan VTE Prophylaxis VTE Prophylaxis Intervention: SCD's Lines/Catheters IV [facility] Type (from [facility]): Peripheral IV Assessment/Plan Chief Complaint/Hosp Course IMPRESSION: 1. Developing sepsis, secondary to pneumonia, urinary tract infection and possibly right lower lobe pneumonia. Blood and urine culture and sensitivity is still pending 2. Bilateral hip pain. 3. Urinary tract infection. 4. Probable right-sided pneumonia. 5. History of Parkinson's disease. 6. History of hypertension. 7. History of gastroesophageal reflux disease. PLAN: Further workup and management per clinical course. Follow up blood and urine culture and sensitivity Patient may be discharged home when sensitivity for blood and urine sensitivity is available Problems: Subjective 24 Hr Interval Summary Free Text/Dictation Patient denies of any chest pain or shortness of breath According to family she is at her baseline No nausea vomiting diarrhea Minimal p.o. intake secondary to lack of appetite Exam/Review of Systems Vital Signs Vitals Vital Signs Date Time Temp Pulse Resp B/P Pulse Ox O2 Delivery O2 Flow Rate FiO2 06/30/16 07:30 98.6 87 18 112/59 96 06/28/16 23:30 Room Air Intake and Output 06/29/16 06/29/16 06/30/16 15:00 23:00 07:00 Intake Total 770 ml 290 ml Output Total 800 ml 800 ml Balance -30 ml -510 ml Exam General: The patient is well-developed, Not in acute distress. HEENT: Atraumatic, normocephalic. The pupils are equal and round . Neck: Supple with full range of motion. Chest: Normal expansion of the thorax during inspiration Lungs: Clear to auscultation bilaterally Heart: Normal S1-S2, Regular rhythm and rate. Abdomen: Soft , nontender, nondistended , bowel sounds are present. Extremities: Normal to inspection, no edema no cyanosis Neurologic: Normal mental status,The patient is awake, alert and oriented . Results Result Diagram: 06/30/16 0550 06/30/16 0550 Results 24 hrs Laboratory Tests Test 06/30/16 05:50 White Blood Count 7.0 # Red Blood Count 3.89 L Hemoglobin 10.8 L Hematocrit 34.4 L Mean Corpuscular Volume 88.4 Mean Corpuscular Hemoglobin 27.8 L Mean Corpuscular Hemoglobin Concent 31.4 L Red Cell Distribution Width 13.5 Platelet Count 169 Mean Platelet Volume 9.9 Neutrophils % 54.1 Lymphocytes % 28.6 Monocytes % 15.9 H Eosinophils % 1.0 Basophils % 0.1 Nucleated Red Blood Cells % 0.0 Neutrophils # 3.8 Lymphocytes # 2.0 Monocytes # 1.1 H Eosinophils # 0.1 Basophils # 0.0 Nucleated Red Blood Cells # 0.0 Sodium Level 136 Potassium Level 3.7 Chloride Level 107 Carbon Dioxide Level 23 Anion Gap 10 # Blood Urea Nitrogen 15 Creatinine 0.65 Glucose Level 112 Calcium Level 8.7 Magnesium Level 1.9 Total Bilirubin 0.1 L Direct Bilirubin 0.00 Indirect Bilirubin 0.1 Aspartate Amino Transf (AST/SGOT) 40 Alanine Aminotransferase (ALT/SGPT) 55 Alkaline Phosphatase 112 Total Protein 5.9 L Albumin 2.8 L Medications Medications Current Medications Atenolol (Tenormin) 25 mg DAILY PO Last administered on 06/30/16 08:49; Admin Dose 25 MG; Start 06/29/16 at 09:00 Imipramine HCl (Tofranil) 10 mg HS PO ; Start 06/29/16 at 21:00 Isosorbide Mononitrate (Imdur) 60 mg DAILY PO Last administered on 06/30/16 08 :50; Admin Dose 60 MG; Start 06/29/16 at 09:00 Montelukast Sodium (Singulair) 10 mg HS PO Last administered on 06/29/16 21:11 ; Admin Dose 10 MG; Start 06/29/16 at 21:00 Oxybutynin Chloride (Ditropan) 5 mg DAILY PO Last administered on 06/30/16 08: 48; Admin Dose 5 MG; Start 06/29/16 at 09:00 Rasagiline (Azilect) 1 mg DAILY PO Last administered on 06/30/16 10:42; Admin Dose 1 MG; Start 06/29/16 at 09:00 Trihexyphenidyl HCl (Artane) 1 mg AM PO ; Start 06/29/16 at 09:00 Pantoprazole (Protonix Tab) 40 mg DAILY@06 PO Last administered on 06/30/16 05 :56; Admin Dose 40 MG; Start 06/29/16 at 06:00 Meclizine HCl (Antivert) 25 mg Q8H PRN PO VERTIGO Last administered on 08:49; Admin Dose 25 MG; Start 06/29/16 at 00:30 Losartan Potassium (Cozaar) 100 mg DAILY PO Last administered on 06/30/16 08: 47; Admin Dose 100 MG; Start 06/29/16 at 02:00 Famotidine 20 mg 20 mg DAILY PO Last administered on 06/30/16 08:48; Admin Dose 20 MG; Start 06/29/16 at 09:00 Ceftriaxone Sodium (Rocephin) 50 ml @ 100 mls/hr Q12H IVPB Last administered on 06/30/16 11:59; Admin Dose 100 MLS/HR; Start 06/29/16 at 12:30 Amlodipine Besylate (Norvasc) 10 mg DAILY PO Last administered on 06/30/16 08: 47; Admin Dose 10 MG; Start 06/29/16 at 09:00 Hydrochlorothiazide (Hydrochlorothiazide) 12.5 mg DAILY PO Last administered on 06/30/16 08:48; Admin Dose 12.5 MG; Start 06/29/16 at 09:00 Magnesium Oxide (Mag-Ox 400) 400 mg DAILY PO Last administered on 06/30/16 08: 48; Admin Dose 400 MG; Start 06/29/16 at 13:30 SILKE COLEMAN MD June 30, 2016 12:56
[2016-06-30 19:28] VITALS: BP 92/53; RESP 20
[2016-06-30] MEDS ORDERED: IMIPRAMINE 25 MG TAB PO SCH (21:00)
[2016-06-30 21:26] VITALS: BP 100/58; PULSE 73
[2016-06-30] MEDS: MONTELUKAST 10 MG TAB PO SCH (21:28)
[2016-07-01] MEDS: CEFTRIAXONE 1 GM/50 ML (PMX) 50 ML IVPB SCH ×2 (00:09→13:01)
[2016-07-01] MEDS: PANTOPRAZOLE (EC) 40 MG TAB PO SCH (06:12)
[2016-07-01] MEDS: TRIHEXYPHENIDYL 2 MG TAB PO SCH ×2 (07:25→09:24)
[2016-07-01 07:52] VITALS: BP 114/69; RESP 18
[2016-07-01 08:27] LABS: ADD SCAN DIFF NO
[2016-07-01 08:37] LABS: BASOPHILS % 0.3 % (0.0-2.0); EOSINOPHILS # 0.1 10^3/ul (0.0-0.5); EOSINOPHILS % 1.5 % (0.0-7.0); HEMATOCRIT 35.2 % (37.0-47.0); HEMOGLOBIN 10.9 g/dl (12.0-16.0); LYMPHOCYTES # 1.9 10^3/ul (0.8-2.9); LYMPHOCYTES % 31.6 % (15.0-51.0); MEAN CORPUSCULAR HEMOGLOBIN 27.7 pg (29.0-33.0); MEAN CORPUSCULAR VOLUME 89.3 fl (82.0-101.0); MEAN PLATELET VOLUME 9.8 fl (7.4-10.4); MONOCYTE # 0.9 10^3/ul (0.3-0.9); NEUTROPHIL # 3.1 10^3/ul (1.6-7.5); NEUTROPHILS % 50.9 % (39.0-77.0); PLATELET COUNT 191 10^3/UL (140-415); RED BLOOD COUNT 3.94 10^6/ul (4.20-5.40); RED CELL DISTRIBUTION WIDTH 13.4 % (11.5-14.5)
[2016-07-01 08:38] LABS: MONOCYTES % 15.4 % (0.0-11.0)
[2016-07-01 08:51] LABS: CALCIUM 8.9 mg/dl (8.4-10.2); CREATININE 0.67 mg/dl (0.44-1.00); POTASSIUM 3.9 mmol/L (3.5-5.1)
[2016-07-01] MEDS: LOSARTAN 50 MG TAB PO SCH (09:23)
[2016-07-01] MEDS: RASAGILINE MESYLATE 1 MG TAB PO SCH (09:24)
[2016-07-01] MEDS: HYDROCHLOROTHIAZIDE 12.5 MG CAP PO SCH (09:24)
[2016-07-01] MEDS: OXYBUTYNIN 5 MG TAB PO SCH (09:25)
[2016-07-01] MEDS: AMLODIPINE 10 MG TAB PO SCH (09:25)
[2016-07-01] MEDS: ATENOLOL 25 MG TAB PO SCH (09:25)
[2016-07-01] MEDS: MAGNESIUM OXIDE 400 MG TAB PO SCH (09:25)
[2016-07-01] MEDS: ISOSORBIDE MONONITRATE(SR)60 MG TAB PO SCH (09:25)
[2016-07-01] MEDS: FAMOTIDINE 20 MG TAB PO SCH (09:25)
--- NOTE | 2016-07-01 09:42 | PDOCDIS ---
Discharge Instructions CONDITION Patient Condition: Good HOME CARE INSTRUCTIONS: Special Diet: Puree Diet ACTIVITY: Activity Restrictions: No Restrictions FOLLOW UP/APPOINTMENTS Appointments F/U WITH YOUR PCP IN 1-2 WEEKS MACK FISHER July 01, 2016 09:42
--- NOTE | 2016-07-02 03:19 | DS ---
DATE OF ADMISSION: 06/28/2016 DATE OF DISCHARGE: 07/01/2016 DISCHARGE DIAGNOSES: 1. Sepsis secondary to urinary tract infection, now resolved, status post antibiotics. Urine cultu re showed mixed gram-positive organisms. Blood culture showed E. coli. 2. History of coronary artery disease, stable. 3. Hypertension, stable. HOSPITAL COURSE: The patient is an 85-year-old female with a history of Parkinson disease, hyperten elma, GERD, dementia. The patient was brought to the ER with the complaint of bilateral hip pain, d ecreased p.o. intake, and fever. The patient had a UA that suggested UTI. The patient had a blood culture with 1 out of 2 showing E. coli. The patient's culture showed mixed gram-positive organisms . Stool culture was also done that showed coliform. The patient did have a fever on arrival with T -max 101.5. The patient was borderline tachycardic, and BPU was dropping to as low as 92/53, hence meeting criteria for sepsis. The patient was given Rocephin for several days. The patient's sepsis resolved. She was felt to be stable for discharge. On the day of discharge, the patient's vitals, labs, and physical examination were stable. She had no acute complaints. Questions were answered. CONDITION ON DISCHARGE: Stable. DISPOSITION: To home. MEDICATIONS: The patient is to continue usual home medications. No new medications were prescribed . FOLLOWUP: The patient is to follow up with her PCP in 1 to 2 weeks. Greater than 30 minutes was spent coordinating discharge of patient. Dictated By: MACK NEWSOME/CARLOS Conf#: [id number] DID#: [id number]
== END 2016-07-01 15:25 | disposition home health service (06) | DRG 871 ==
LOC: E/R 16:25 → MS2 19:21
PROVIDERS: ADMIT Internal Medicine; ATTEND Internal Medicine
DX: A41.51 Sepsis due to Escherichia coli [E. coli] (principal); J18.9 Pneumonia, unspecified organism; N39.0 Urinary tract infection, site not specified; G20 Parkinson's disease; I10 Essential (primary) hypertension; E11.9 Type 2 diabetes mellitus without complications; F41.9 Anxiety disorder, unspecified; R10.13 Epigastric pain; K21.9 Gastro-esophageal reflux disease without esophagitis; M25.552 Pain in left hip; M25.551 Pain in right hip
CPT/HCPCS: 36415; 71010; 74176; 80048; 80053; 80076; 81001; 81003; 83605; 83735; 84100; 84484; 85025; 85610; 85730; 87040; 87045; 87086; 92526; 92610; 93005; 96374; 96375; 97162; J0692; J0696; J3370; J7030

== ENCOUNTER 2016-08-27 16:40 | Inpatient (IN) | payer MEDICARE, OTHER ==
[~2016-08-27] VITALS: Ht 134.6 cm; Wt 52.2 kg
[~2016-08-27 16:40] MED LIST changes: -AMLO-145 PO; -ART2 PO; -AZIL1TAB PO; -DEXILENT PO; +DEXL60CA2 PO; -DICL100G37 TOP; -FAMO20TA44 PO; +FAMO40TA52 PO; +MECL-90 PO; +OLME1TAB35 PO; +OXYB5TAB7 PO; -TRAM50TA2 PO; +TRIH2TAB2 PO; -[UNRECOGNIZED DRUG - CODE] PO
--- NOTE | 2016-08-27 16:47 | ERA ---
ER Documentation Chief Complaint Date/Time DATE: 08/27/16 TIME: 16:46 Chief Complaint HPI 85-year-old woman brought in by son for fever 2 days and some URI symptoms including shortness of breath and congestion although son denies cough. Patient has had no chest pain or abdominal pain, no vomiting or diarrhea, no headache or blurry vision, no loss of consciousness. Son states she had a similar episode a few months ago diagnosed as pneumonia and UTI. ROS All systems reviewed and are negative except as per history of present illness. Medications Home Meds Reported Medications Cnfmxaffik-Ebomeyrrnv-CKIV (Tribenzor) 40-5-12.5 Mg Tablet, 1 TAB PO DAILY, TAB 08/27/16 Pramipexole* (Pramipexole*) 1.5 Mg Tablet, 1.5 MG PO TID, TAB 08/27/16 Oxybutynin Chloride* (Ditropan*) 5 Mg Tab, 5 MG PO DAILY, TAB 06/28/16 Famotidine* (Famotidine*) 40 Mg Tablet, 40 MG PO HS, #30 TAB 06/28/16 Dexlansoprazole (Dexilant) 60 Mg Capmp, 60 MG PO DAILY, #30 CAP 06/28/16 Meclizine Hcl* (Bonine*) 25 Mg Tab.chew, 25 MG PO Q8H Y for VERTIGO, TAB.CHEW 06/28/16 Clonidine HCl (Clonidine HCl ER) 0.1 Mg Tab.er.12h, 0.1 MG PO TID 09/17/13 Montelukast Sodium* (Singulair*) 10 Mg Tablet, 10 MG PO DAILY, TAB 09/17/13 Trihexyphenidyl Hcl* (Trihexyphenidyl Hcl*) 2 Mg Tab, 1 MG PO AM, TAB 09/17/13 Imipramine Hcl* (Imipramine Hcl*) 10 Mg Tablet, 10 MG PO HS, TAB 09/17/13 Rasagiline Mesylate* (Azilect*) 1 Mg Tablet, 1 MG PO DAILY 06/28/12 Isosorbide Mononitrate* (Imdur*) 60 Mg Tab.sr.24h, 60 MG PO DAILY 06/28/12 Atenolol (Tenormin) 25 Mg Tab, 25 MG PO DAILY 06/28/12 Discontinued Reported Medications Escjztlnov-Viiwoytrgy-UKGL (Tribenzor) 40-10-12.5 Mg Tablet, 1 TAB PO DAILY, TAB 06/28/16 Allergies Allergies: Coded Allergies: No Known Allergies (Verified Allergy, Mild, 08/27/16) PMhx/Soc Parkinson's disease, hypertension, GERD History of Surgery: Yes Anesthesia Reaction: No Hx Neurological Disorder: No Hx Respiratory Disorders: Yes (sob) Hx Cardiac Disorders: Yes (htn) Hx Psychiatric Problems: Yes (dementia) Hx Miscellaneous Medical Probl: Yes (B hip pain, scoliosis, Parkinson's, HTN, GERD, dementia) Hx Alcohol Use: No Hx Substance Use: No Hx Tobacco Use: No FmHx Family History: No diabetes Physical Exam Vitals Vital Signs Date Time Temp Pulse Resp B/P Pulse Ox O2 Delivery O2 Flow Rate FiO2 08/27/16 17:30 98 18 137/82 98 Nasal Cannula 2.0 08/27/16 17:05 Nasal Cannula 2 08/27/16 16:43 101.1 88 22 139/88 98 Physical Exam GENERAL: Well-developed, elderly, chronically debilitated woman, appears dehydrated, febrile HEENT: Dry mucous membranes, pink conjunctiva, no cervical spine tenderness or step-off deformities, no goiter, no jaundice or icterus, extraocular movements intact without pain. No submandibular induration, and no pharyngeal erythema NEURO: Alert and oriented 3, cranial nerves II through XII intact bilaterally, pupils equal round reactive to light, no focal deficits or facial asymmetry, sensation intact distally Strength 5/5 in upper and lower extremities bilaterally CARDIAC: Regular rate and rhythm, no murmurs rubs or gallops LUNGS: Clear bilaterally no wheezing crackles or stridor ABDOMEN: Soft nontender, no guarding, no rigidity, no rebound, no psoas sign no obturator sign. Normoactive bowel sounds SKIN: Warm and dry to touch, no abrasions, contusions, or hematomas, no lacerations, no ecchymosis, no target lesions, and without ulcers EXTREMITIES: No clubbing cyanosis or edema, calves are bilaterally symmetrical, no Homans sign, no popliteal cord sign. Distal pulses equal and bilateral PSYCH: Normal affect without agitation or irritability Result Diagram: 08/27/16 1700 08/27/16 1700 Results 24 hrs Laboratory Tests Test 08/27/16 17:00 08/27/16 17:16 08/27/16 18:30 White Blood Count 8.810^3/ul Red Blood Count 3.8610^6/ul Hemoglobin 10.9g/dl Hematocrit 34.5% Mean Corpuscular Volume 89.4fl Mean Corpuscular Hemoglobin 28.2pg Mean Corpuscular Hemoglobin Concent 31.6g/dl Red Cell Distribution Width 14.1% Platelet Count 09341^3/UL Mean Platelet Volume 10.3fl Neutrophils % 69.8% Lymphocytes % 19.2% Monocytes % 10.5% Eosinophils % 0.1% Basophils % 0.2% Nucleated Red Blood Cells % 0.0/100WBC Neutrophils # 6.110^3/ul Lymphocytes # 1.710^3/ul Monocytes # 0.910^3/ul Eosinophils # 0.010^3/ul Basophils # 0.010^3/ul Nucleated Red Blood Cells # 0.010^3/ul Prothrombin Time 12.8Sec Prothrombin Time Ratio 1.0 INR International Normalized Ratio 0.96 Activated Partial Thromboplast Time 29.3Sec Sodium Level 142mmol/L Potassium Level 4.2mmol/L Chloride Level 103mmol/L Carbon Dioxide Level 24mmol/L Anion Gap 19 Blood Urea Nitrogen 21mg/dl Creatinine 0.86mg/dl Glucose Level 99mg/dl Lactic Acid Level 1.5mmol/L 2.4mmol/L Calcium Level 9.2mg/dl Total Bilirubin 0.2mg/dl Direct Bilirubin 0.00mg/dl Indirect Bilirubin 0.2mg/dl Aspartate Amino Transf (AST/SGOT) 40IU/L Alanine Aminotransferase (ALT/SGPT) 34IU/L Alkaline Phosphatase 85IU/L Troponin I < 0.012ng/ml Total Protein 7.8g/dl Albumin 4.3g/dl Globulin 3.50g/dl Albumin/Globulin Ratio 1.22 Lipase 18U/L Urine Color YELLOW Urine Clarity CLEAR Urine pH 6.0 Urine Specific [place] 1.011 Urine Ketones NEGATIVEmg/dL Urine Nitrite NEGATIVEmg/dL Urine Bilirubin NEGATIVEmg/dL Urine Urobilinogen NEGATIVEmg/dL Urine Leukocyte Esterase TRACELeu/ul Urine Microscopic RBC 12/HPF Urine Microscopic WBC 5/HPF Urine Bacteria FEW/HPF Urine Hemoglobin 2+mg/dL Urine Glucose NEGATIVEmg/dL Urine Total Protein NEGATIVEmg/dl Current Medications Medications (Trade) Dose Ordered Sig/Livan Route PRN Reason Start Time Stop Time Status Last Admin Dose Admin Sodium Chloride 2110 ml 2,110 ml BOLUS OVER 2 HOURS STAT IV* 08/27/16 16:52 08/27/16 16:55 DC 08/27/16 17:01 Ceftriaxone Sodium (Rocephin) 50 ml @ 100 mls/hr ONCE ONCE IVPB 08/27/16 17:00 08/27/16 17:29 DC 08/27/16 17:19 Ibuprofen 600 mg 600 mg ONCE ONCE PO 08/27/16 17:00 08/27/16 17:01 DC 08/27/16 17:05 Vancomycin HCl (Vancocin) 250 ml @ 125 mls/hr ONCE IVPB 08/27/16 19:30 08/27/16 21:29 08/27/16 19:08 Procedures/MDM IV line was established patient was placed on registered nurse cardiac rhythm strip revealed a sinus tachycardia at 100 bpm with upright P and T waves. Patient was febrile. Blood and urine cultures have been ordered results are pending I will follow-up. I administered 2 L normal saline intravenously for dehydration and ibuprofen 600 mg p.o. for fever. EKG performed, read by me revealed a normal sinus rhythm at 99 bpm, normal axis , narrow QRS complex, no concerning ST elevations or depressions noted. One view chest x-ray performed, read by me revealed atelectatic changes, no acute infiltrates, no pneumothorax. I administered ceftriaxone 1 g IV followed by vancomycin 1 g IV. CBC was unremarkable, electrolytes revealed dehydration with a BUN/creatinine of 21/0.9, liver function tests normal, troponin negative. Initial lactic acid was low at 1.5 although after above therapy it went up to 2.4. Urine analysis was concerning for early infection. Patient's infectious symptoms have not stabilized and the patient is at risk of rapid decompensation. The patient will be admitted for careful hydration, antibiotic therapy, and infectious source control. Severe Sepsis Assessment: Infectious Source: Bladder No signs of endorgan damage. Severe Sepsis Managment: Blood Cultures X 2 before broad spectrum antibiotics initiated within 3 hours of recognition. 30 ml/kg NS bolus Completed Initial Lactate: normal Repeat Lactate elevated to 2.4 Critical Care: Time: 34 minutes, this was time separate from other billable procedures. Treatments/Evaluations: Emergent fluid management, while maintaining close respiratory support. Immediate broad spectrum antibiotic therapy. Simultaneous assessment for possible sources in order to direct therapy. Consideration for invasive and chemical support to prevent respiratory or cardiac collapse. Septic Shock Assessment (1 hour post 30 ml/kg fluid bolus): Hypotension (SBP < 90 or 40 mmHg drop, MAP < 65): No Lactic acid > 4.0 No Perfusion Reassessment for Septic Shock: Temp afebrile, pulse 80 bpm, respiratory rate 18 breaths per minute, blood pressure 120/80 Heart Exam: Regular rate rhythm Lung Exam: No Crackles Capillary Refill: Less than 2 seconds Peripheral Pulses: Radially present Skin: Warm and dry Hypotensive Treatment (not required for isolated lactic acid elevation): Comfort Care: No Central LIne: Not indicated Vasopressor started: Not indicated I considered further perfusion assessment with CVP measurement, SCVO2, bedside ultrasound volume assessment, passive leg raise, trial of further fluid bolus. And preceded with IV hydration and IV antibiotics. Accepting Care Team: Current data and ongoing care discussed. Time: Time of admission Primary Provider: Hospitalist Consulting: Infectious disease Outstanding Data: none Departure Diagnosis: Primary Impression: Sepsis Qualified Code: A41.9 - Sepsis, due to unspecified organism Additional Impressions: Dehydration UTI (urinary tract infection) Qualified Code: N30.00 - Acute cystitis without hematuria Condition: BURTON Alejandro MD Aug 27, 2016 16:47
[2016-08-27] MEDS ORDERED: SODIUM CHLORIDE 0.9% 1L BAG IV* STA (16:52)
[2016-08-27] MEDS ORDERED: CEFTRIAXONE 1 GM/50 ML (PMX) 50 ML IVPB ONE (17:00)
[2016-08-27] MEDS ORDERED: IBUPROFEN 600 MG TAB PO ONE (17:00)
[2016-08-27 17:22] LABS: ADD SCAN DIFF NO
[2016-08-27] MEDS ORDERED: PRAM1.5T PO (17:22)
[2016-08-27] MEDS ORDERED: OLME1TAB31 PO (17:24)
[2016-08-27 17:27] LABS: BASOPHILS % 0.2 % (0.0-2.0); EOSINOPHILS % 0.1 % (0.0-7.0); HEMATOCRIT 34.5 % (37.0-47.0); HEMOGLOBIN 10.9 g/dl (12.0-16.0); LYMPHOCYTES # 1.7 10^3/ul (0.8-2.9); LYMPHOCYTES % 19.2 % (15.0-51.0); MEAN CORPUSCULAR HEMOGLOBIN 28.2 pg (29.0-33.0); MEAN CORPUSCULAR HGB CONC 31.6 g/dl (32.0-37.0); MEAN CORPUSCULAR VOLUME 89.4 fl (82.0-101.0); MEAN PLATELET VOLUME 10.3 fl (7.4-10.4); MONOCYTE # 0.9 10^3/ul (0.3-0.9); MONOCYTES % 10.5 % (0.0-11.0); NEUTROPHIL # 6.1 10^3/ul (1.6-7.5); NEUTROPHILS % 69.8 % (39.0-77.0); PLATELET COUNT 174 10^3/UL (140-415); RED BLOOD COUNT 3.86 10^6/ul (4.20-5.40); RED CELL DISTRIBUTION WIDTH 14.1 % (11.5-14.5); WHITE BLOOD COUNT 8.8 10^3/ul (4.8-10.8)
[2016-08-27 17:38] LABS: ADD UMIC YES; UR ASCORBIC ACID NEGATIVE (NEGATIVE); UR BACTERIA FEW /HPF (NONE SEEN); UR BILIRUBIN (Dip) NEGATIVE (NEGATIVE); UR BLOOD (Dip) 2+ mg/dL (NEGATIVE); UR CLARITY CLEAR (CLEAR); UR COLOR YELLOW (YELLOW); UR GLUCOSE (Dip) NEGATIVE (NEGATIVE); UR KETONES (Dip) NEGATIVE (NEGATIVE); UR LEUKOCYTE ESTERASE (Dip) TRACE Leu/ul (NEGATIVE); UR NITRITE (Dip) NEGATIVE (NEGATIVE); UR RBC 12 /HPF (0-5); UR SPECIFIC GRAVITY (Dip) 1.011 (1.003-1.030); UR TOTAL PROTEIN (Dip) NEGATIVE (NEGATIVE); UR UROBILINOGEN (Dip) NEGATIVE (NEGATIVE)
[2016-08-27 17:44] LABS: INR 0.96; PARTIAL THROMBOPLASTIN TIME 29.3 Sec (25.0-35.0); PROTIME 12.8 Sec (12.2-14.2)
[2016-08-27 17:52] LABS: ALANINE AMINOTRANSFERASE 34 IU/L (13-69); ALBUMIN 4.3 g/dl (3.3-4.9); ALBUMIN/GLOBULIN RATIO 1.22; ALKALINE PHOSPHATASE 85 IU/L (42-121); ANION GAP 19 (8-16); ASPARTATE AMINO TRANSFERASE 40 IU/L (15-46); BILIRUBIN,INDIRECT 0.2 mg/dl (0-1.1); BILIRUBIN,TOTAL 0.2 mg/dl (0.2-1.3); BLOOD UREA NITROGEN 21 mg/dl (7-20); CALCIUM 9.2 mg/dl (8.4-10.2); CARBON DIOXIDE 24 mmol/L (21-31); CHLORIDE 103 mmol/L (97-110); CREATININE 0.86 mg/dl (0.44-1.00); GLUCOSE 99 mg/dl (70-220); POTASSIUM 4.2 mmol/L (3.5-5.1); SODIUM 142 mmol/L (135-144); TOTAL PROTEIN 7.8 g/dl (6.1-8.1)
[2016-08-27 18:08] LABS: TROPONIN-I < 0.012 ng/ml (0.00-0.12)
--- NOTE | 2016-08-27 18:13 | RADRPT ---
PROCEDURE: XR Chest. CLINICAL INDICATION: Sepsis. Cough. TECHNIQUE: Single frontal view. COMPARISON: 06/28/2016. FINDINGS: There is elevation of the right hemidiaphragm. The lungs are clear. The heart is mildly enlarged. There is calcification in the aorta consistent with atherosclerosis. There is no pleural effusion. There is no pneumothorax. IMPRESSION: 1. Elevation of the right hemidiaphragm. 2. Cardiomegaly and atherosclerosis. 3. Otherwise normal chest radiograph. RPTAT: QQ .Oz King MD, MD Date Time Electronically viewed and signed by .Oz King MD, MD on 08/27/2016 18:12 .R/
[2016-08-27] MEDS ORDERED: VANCOMYCIN 1 GM (PMX) 250 ML IVPB SCH (19:30)
[2016-08-27 20:20] VITALS: TEMP 99.1
[2016-08-27 21:08] VITALS: PULSE 85
[2016-08-27 21:44] VITALS: BP 101/51; RESP 19
[2016-08-27 22:08] VITALS: Ht 134.6 cm; Wt 52.2 kg
[2016-08-27] MEDS ORDERED: FAMOTIDINE 20 MG INJ IV SCH (23:00)
[2016-08-27] MEDS ORDERED: NACL 0.9% 3 ML SYG IV SCH (23:00)
[2016-08-27 23:55] VITALS: BP 101/56; RESP 18
[2016-08-28] VITALS (11 sets, daily range): BP systolic 103–125; BP diastolic 57–62; PULSE 66–103; RESP 15–21
[2016-08-28] MEDS: SOD CHLORIDE 0.9% 1,000 ML IV SCH ×2 (01:41→11:36)
[2016-08-28] MEDS: HEPARIN 5,000 UNIT/0.5 ML VIAL SC SCH ×4 (01:41→22:05)
--- NOTE | 2016-08-28 03:40 | HP ---
Date/Time of Note Date/Time of Note DATE: 08/28/16 TIME: 03:40 Assessment/Plan VTE Prophylaxis VTE Prophylaxis Intervention: heparin Lines/Catheters IV Catheter Type (from [facility]): Saline Lock Assessment/Plan Chief Complaint/Hosp Course This is a 85 year female being admitted to telemetry floor for: #1 fevers: Patient presented with a fever of 101. Urinalysis showed trace leukoesterase. White blood cell count within normal limits. She did receive Vanco and ceftriaxone in the ED. Right now will continue ceftriaxone for possible suspected UTI. Will await urine cultures and blood cultures. Tylenol for fevers #2 lactic acidosis: Lactate slightly elevated at 2.4 we will continue to trend. This likely to be secondary to dehydration versus underlying infection. Will continue IV fluid hydration at this time and antibiotics will continue to trend lactic acid level. #3hypertension: At the current time patient's blood pressure is on the lower side of normal. Will hold current antihypertensive medications. As needed hydralazine if blood pressures greater than 160/105 #4Parkinson's/dementia: Continue home medications #5 vertigo: As needed meclizine #6 DVT and GI prophylaxis: heparin, Protonix Further treatment strategy as per the clinical course Problems: HPI/ROS Admit Date/Time Admit Date/Time Aug 27, 2016 at 19:17 Hx of Present Illness Chief complaint: Fever 85-year-old woman brought in by son for fever 2 days and some URI symptoms including shortness of breath and congestion although son denies cough. Patient has had no chest pain or abdominal pain, no vomiting or diarrhea, no headache or blurry vision, no loss of consciousness. Son states she had a similar episode a few months ago diagnosed as pneumonia and UTI. Patient has a history of dementia and Parkinson's and at the current time is unable to give adequate responses. Allergies: NKDA Medications: See MAR ROS unable to fully assess secondary to patient's dementia/parkinsons. PMH/Family/Social Past Medical History Parkinson's disease, hypertension, GERD, and dementia Past Surgical History hip surgery Family History Significant Family History: no pertinent family hx Social History Alcohol Use: none Smoking Status: Never smoker Drug Use: none Exam/Review of Systems Vital Signs Vitals Vital Signs Date Time Temp Pulse Resp B/P Pulse Ox O2 Delivery O2 Flow Rate FiO2 08/28/16 00:17 66 08/27/16 23:55 98.0 18 101/56 96 08/27/16 20:37 Nasal Cannula 2.0 Exam Exam General: Patient is well-developed well-nourished, somnolent but easily arousable, unable to respond appropriately secondary to her dementia HEENT: Atraumatic, normocephalic. The pupils are equal, round and reactive. Extraocular motor are intact Neck: Supple with full range of motion. No rigidity or meningismus Chest: Nontender Lungs: Clear to auscultation bilaterally no crackles rales or wheezing Heart: Normal S1-S2, Regular rhythm and rate. No murmur, S3, or S4 Abdomen: Soft , nontender, nondistended , bowel sounds are present. No guarding no rebound tenderness , No masses or organomegaly. No costovertebral temporal angle mass Extremities: Normal to inspection, no edema no cyanosis Neurologic: Unable to assess secondary to patient's dementia/Parkinson's. Labs Result Diagram: 08/27/16 1700 08/27/16 1700 Medications Medications Current Medications Sodium Chloride (NS) 1,000 ml @ 70 mls/hr [id number] IV Last administered on 08/28 01:41; Admin Dose 70 MLS/HR; Start 08/27/16 at 22:42 Ondansetron HCl (Zofran Inj) 4 mg Q6H PRN IV NAUSEA AND/OR VOMITING; Start 08/27 at 23:00 Acetaminophen (Tylenol Tab) 650 mg Q6H PRN PO PAIN LEVEL 1-3 OR FEVER; Start at 23:00 Heparin Sodium (Porcine) (Heparin (5000 Units/0.5 ml)) 5,000 unit Q8 SC Last administered on 08/28/16 01:41; Admin Dose 5,000 UNIT; Start 08/27/16 at 23:00 Famotidine (Pepcid Iv) 20 mg DAILY IV ; Start 08/28/16 at 09:00 MANUEL ESPINOSA Aug 28, 2016 03:40
[2016-08-28] MEDS ORDERED: ALBUTEROL/IPRATROPIUM (NEB) 3 ML AMP HHN STA (05:06)
[2016-08-28] MEDS ORDERED: hydrALAzine 20 MG INJ IV PRN (06:00)
[2016-08-28] MEDS ORDERED: MECLIZINE HCL 25 MG PO PRN (06:00)
--- NOTE | 2016-08-28 06:21 | RADRPT ---
PROCEDURE: XR Chest. CLINICAL INDICATION: Shortness of breath TECHNIQUE: Portable single view of the chest COMPARISON: 06/19/2015 FINDINGS: There has been shallower lung inflation with increased subsegmental atelectasis of the lung bases. Early basilar infiltrate cannot be excluded. Cardiomegaly. Degenerative change of the spine again seen. Gaseous distension of upper bowel loops, likely stomach and colon. Old left rib fractures. IMPRESSION: Shallower lung inflation with increased probable bibasilar atelectasis. RPTAT: HLBE Mirian Alcala Physician Date Time Electronically viewed and signed by Mirian Alcala Physician on 08/28/2016 06:21 LE/
[2016-08-28] MEDS ORDERED: MECLIZINE 25 MG TAB PO PRN (06:30)
[2016-08-28] MEDS: CEFTRIAXONE 1 GM/50 ML (PMX) 50 ML IVPB SCH (06:39)
[2016-08-28 07:29] LABS: ADD SCAN DIFF NO
[2016-08-28 07:32] LABS: BASOPHILS % 0.1 % (0.0-2.0); HEMATOCRIT 33.5 % (37.0-47.0); HEMOGLOBIN 10.8 g/dl (12.0-16.0); LYMPHOCYTES # 1.1 10^3/ul (0.8-2.9); LYMPHOCYTES % 13.6 % (15.0-51.0); MEAN CORPUSCULAR HEMOGLOBIN 28.5 pg (29.0-33.0); MEAN CORPUSCULAR HGB CONC 32.2 g/dl (32.0-37.0); MEAN CORPUSCULAR VOLUME 88.4 fl (82.0-101.0); MEAN PLATELET VOLUME 9.9 fl (7.4-10.4); MONOCYTE # 0.8 10^3/ul (0.3-0.9); MONOCYTES % 9.7 % (0.0-11.0); NEUTROPHIL # 6.3 10^3/ul (1.6-7.5); NEUTROPHILS % 76.1 % (39.0-77.0); PLATELET COUNT 143 10^3/UL (140-415); RED BLOOD COUNT 3.79 10^6/ul (4.20-5.40); RED CELL DISTRIBUTION WIDTH 13.8 % (11.5-14.5); WHITE BLOOD COUNT 8.3 10^3/ul (4.8-10.8)
[2016-08-28 07:47] LABS: ALBUMIN 3.7 g/dl (3.3-4.9); ALBUMIN/GLOBULIN RATIO 1.19; BILIRUBIN,INDIRECT 0.3 mg/dl (0-1.1); BILIRUBIN,TOTAL 0.3 mg/dl (0.2-1.3); CALCIUM 8.1 mg/dl (8.4-10.2); CREATININE 0.67 mg/dl (0.44-1.00); POTASSIUM 3.1 mmol/L (3.5-5.1); TOTAL PROTEIN 6.8 g/dl (6.1-8.1)
[2016-08-28] MEDS ORDERED: POTASSIUM CHLORIDE (SR) 20 MEQ TAB PO STA (08:51)
[2016-08-28] MEDS ORDERED: FAMOTIDINE 20 MG INJ IV SCH (09:00)
[2016-08-28] MEDS: MONTELUKAST 10 MG TAB PO SCH (09:21)
--- NOTE | 2016-08-28 09:38 | PN ---
Date/Time of Note Date/Time of Note DATE: 08/28/16 TIME: 09:32 Assessment/Plan VTE Prophylaxis VTE Prophylaxis Intervention: SCD's Lines/Catheters IV [facility]from [facility] Saline Lock Assessment/Plan Assessment/Plan 85 yo F with pmhx PD admitted for fever, with c/o fatigue and generalized weakness. Also found to have mild lactic acidosis, now resolved. #fever: pt with HR max at 103 shortly after admission, technically met SIRS criteria, concerning for sepsis. Source unclear. Possibly urine? -continue empiric ceftriaxone pending urine culture results -cont IVFs #fatigue/weakness of 12 mos duration -check TSH, PT eval tomorrow -RD eval #PD: cont home meds Prophx: SCDs Subjective 24 Hr Interval Summary Free Text/Dictation Pt reports that she's been feeling weak and with poor appetite for the past year. Discussed this matter with her PCP and was advised to drink more water. Exam/Review of Systems Vital Signs Vitals Vital Signs Date Time Temp Pulse Resp B/P Pulse Ox O2 Delivery O2 Flow Rate FiO2 08/28/16 08:27 103 08/28/16 08:08 98.6 18 119/62 100 08/28/16 05:27 Nasal Cannula 2.0 27 Intake and Output 08/27/16 08/27/16 08/28/16 15:00 23:00 07:00 Intake Total 590 ml Balance 590 ml Exam mildly agitated edentulous wearing NC lungs clear no mrg abd soft no rashes labs reviewed, urine culture in process urine with minimal bacteria and WBCs Results Result Diagram: 08/28/16 0654 08/28/16 0654 Results 24 hrs Laboratory Tests Test 08/27/16 17:00 08/27/16 17:16 08/27/16 18:30 08/27/16 20:55 White Blood Count 8.8 # Red Blood Count 3.86 L Hemoglobin 10.9 L Hematocrit 34.5 L Mean Corpuscular Volume 89.4 Mean Corpuscular Hemoglobin 28.2 L Mean Corpuscular Hemoglobin Concent 31.6 L Red Cell Distribution Width 14.1 Platelet Count 174 Mean Platelet Volume 10.3 Neutrophils % 69.8 Lymphocytes % 19.2 Monocytes % 10.5 Eosinophils % 0.1 Basophils % 0.2 Nucleated Red Blood Cells % 0.0 Neutrophils # 6.1 Lymphocytes # 1.7 Monocytes # 0.9 Eosinophils # 0.0 Basophils # 0.0 Nucleated Red Blood Cells # 0.0 Prothrombin Time 12.8 Prothrombin Time Ratio 1.0 INR International Normalized Ratio 0.96 Activated Partial Thromboplast Time 29.3 Sodium Level 142 Potassium Level 4.2 Chloride Level 103 Carbon Dioxide Level 24 Anion Gap 19 H Blood Urea Nitrogen 21 H Creatinine 0.86 Glucose Level 99 Lactic Acid Level 1.5 2.4 H 0.8 Calcium Level 9.2 Total Bilirubin 0.2 Direct Bilirubin 0.00 Indirect Bilirubin 0.2 Aspartate Amino Transf (AST/SGOT) 40 Alanine Aminotransferase (ALT/SGPT) 34 Alkaline Phosphatase 85 Troponin I < 0.012 Total Protein 7.8 Albumin 4.3 Globulin 3.50 H Albumin/Globulin Ratio 1.22 Lipase 18 L Urine Color YELLOW Urine Clarity CLEAR Urine pH 6.0 Urine Specific [place] 1.011 Urine Ketones NEGATIVE Urine Nitrite NEGATIVE Urine Bilirubin NEGATIVE Urine Urobilinogen NEGATIVE Urine Leukocyte Esterase TRACE A Urine Microscopic RBC 12 H Urine Microscopic WBC 5 Urine Bacteria FEW A Urine Hemoglobin 2+ H Urine Glucose NEGATIVE Urine Total Protein NEGATIVE Test 08/28/16 06:54 White Blood Count 8.3 Red Blood Count 3.79 L Hemoglobin 10.8 L Hematocrit 33.5 L Mean Corpuscular Volume 88.4 Mean Corpuscular Hemoglobin 28.5 L Mean Corpuscular Hemoglobin Concent 32.2 Red Cell Distribution Width 13.8 Platelet Count 143 Mean Platelet Volume 9.9 Neutrophils % 76.1 Lymphocytes % 13.6 L Monocytes % 9.7 Eosinophils % 0.0 Basophils % 0.1 Nucleated Red Blood Cells % 0.0 Neutrophils # 6.3 Lymphocytes # 1.1 Monocytes # 0.8 Eosinophils # 0.0 Basophils # 0.0 Nucleated Red Blood Cells # 0.0 Sodium Level 136 Potassium Level 3.1 L Chloride Level 105 Carbon Dioxide Level 23 Anion Gap 11 # Blood Urea Nitrogen 13 Creatinine 0.67 Glucose Level 104 Calcium Level 8.1 L Total Bilirubin 0.3 Direct Bilirubin 0.00 Indirect Bilirubin 0.3 Aspartate Amino Transf (AST/SGOT) 41 Alanine Aminotransferase (ALT/SGPT) 44 Alkaline Phosphatase 85 Total Protein 6.8 # Albumin 3.7 Globulin 3.10 Albumin/Globulin Ratio 1.19 Medications Medications Current Medications Sodium Chloride (NS) 1,000 ml @ 70 mls/hr [id number] IV Last administered on 08/28 01:41; Admin Dose 70 MLS/HR; Start 08/27/16 at 22:42 Ondansetron HCl (Zofran Inj) 4 mg Q6H PRN IV NAUSEA AND/OR VOMITING; Start 08/27 at 23:00 Acetaminophen (Tylenol Tab) 650 mg Q6H PRN PO PAIN LEVEL 1-3 OR FEVER; Start at 23:00 Heparin Sodium (Porcine) (Heparin (5000 Units/0.5 ml)) 5,000 unit Q8 SC Last administered on 08/28/16 05:57; Admin Dose 5,000 UNIT; Start 08/27/16 at 23:00 Imipramine HCl (Tofranil) 10 mg HS PO ; Start 08/28/16 at 21:00 Montelukast Sodium (Singulair) 10 mg DAILY PO Last administered on 08/28/16 09 :21; Admin Dose 10 MG; Start 08/28/16 at 09:00 Oxybutynin Chloride (Ditropan) 5 mg DAILY PO ; Start 08/28/16 at 09:00 Pramipexole (Mirapex) 1.5 mg TID PO ; Start 08/28/16 at 09:00 Rasagiline (Azilect) 1 mg DAILY PO ; Start 08/28/16 at 09:00 Trihexyphenidyl HCl 1 mg 1 mg AM PO ; Start 08/28/16 at 09:00 Ceftriaxone Sodium (Rocephin) 50 ml @ 100 mls/hr Q24H IVPB Last administered on 08/28/16 06:39; Admin Dose 100 MLS/HR; Start 08/28/16 at 06:00 Meclizine HCl (Antivert) 25 mg Q8H PRN PO VERTIGO; Start 08/28/16 at 06:30 VI BECKER MD Aug 28, 2016 09:38
[2016-08-28] MEDS: TRIHEXYPHENIDYL 2 MG TAB PO SCH ×2 (09:50→09:51)
[2016-08-28] MEDS: PRAMIPEXOLE 1 MG TAB PO SCH ×3 (09:53→22:02)
[2016-08-28] MEDS: OXYBUTYNIN 5 MG TAB PO SCH (11:35)
[2016-08-28] MEDS: RASAGILINE MESYLATE 1 MG TAB PO SCH (11:35)
[2016-08-28] MEDS: ACETAMINOPHEN 325 MG TAB PO PRN (13:26)
[2016-08-28] MEDS: ONDANSETRON 4 MG INJ IV PRN (14:19)
[2016-08-28] MEDS: IMIPRAMINE 10 MG TAB PO SCH (22:14)
[2016-08-29] VITALS (12 sets, daily range): BP systolic 118–134; BP diastolic 57–85; PULSE 79–100; RESP 16–20
[2016-08-29] MEDS: SOD CHLORIDE 0.9% 1,000 ML IV SCH
[2016-08-29] MEDS: CEFTRIAXONE 1 GM/50 ML (PMX) 50 ML IVPB SCH (05:21)
[2016-08-29] MEDS: HEPARIN 5,000 UNIT/0.5 ML VIAL SC SCH ×3 (05:29→22:31)
[2016-08-29] MEDS: PRAMIPEXOLE 1 MG TAB PO SCH ×3 (09:08→22:30)
[2016-08-29] MEDS: MONTELUKAST 10 MG TAB PO SCH (09:09)
[2016-08-29] MEDS: TRIHEXYPHENIDYL 2 MG TAB PO SCH (09:09)
[2016-08-29] MEDS: OXYBUTYNIN 5 MG TAB PO SCH (09:09)
[2016-08-29] MEDS: RASAGILINE MESYLATE 1 MG TAB PO SCH (09:11)
--- NOTE | 2016-08-29 15:48 | PN ---
Date/Time of Note Date/Time of Note DATE: 08/29/16 TIME: 15:47 Assessment/Plan VTE Prophylaxis VTE Prophylaxis Intervention: SCD's Lines/Catheters IV [facility] Saline Lock Urinary Cath still in place: No Assessment/Plan Assessment/Plan 85 yo F with pmhx PD admitted for fever, with c/o fatigue and generalized weakness. Also found to have mild lactic acidosis, now resolved. #fever: pt with HR max at 103 shortly after admission, technically met SIRS criteria, concerning for sepsis. Suspect primary urinary source with hematologic spread. -continue empiric ceftriaxone pending culture results -stop IVFs #fatigue/weakness of 12 mos duration -TSH nl. PT eval -RD eval #PD: cont home meds Prophx: SCDs anticipate discharge in 1-2 days if pathogen S to PO abx Subjective 24 Hr Interval Summary Free Text/Dictation Filipino language line used to facilitate conversation. Pt states she feels a little better today Exam/Review of Systems Vital Signs Vitals Vital Signs Date Time Temp Pulse Resp B/P Pulse Ox O2 Delivery O2 Flow Rate FiO2 08/29/16 15:32 98.8 86 16 126/85 97 08/29/16 08:50 Nasal Cannula 2.0 08/28/16 05:27 27 Intake and Output 08/28/16 08/28/16 08/29/16 15:00 23:00 07:00 Intake Total 1230 ml Balance 1230 ml Exam nad no mrg lungs clear abd soft no rashes both admission blood cultures and urine cultures with GNRs Results Result Diagram: 08/28/16 0654 08/28/16 0654 Medications Medications Current Medications Sodium Chloride (NS) 1,000 ml @ 70 mls/hr [id number] IV Last administered on 08/29 00:00; Admin Dose 70 MLS/HR; Start 08/27/16 at 22:42 Ondansetron HCl (Zofran Inj) 4 mg Q6H PRN IV NAUSEA AND/OR VOMITING Last administered on 08/28/16 14:19; Admin Dose 4 MG; Start 08/27/16 at 23:00 Acetaminophen (Tylenol Tab) 650 mg Q6H PRN PO PAIN LEVEL 1-3 OR FEVER Last administered on 08/28/16 13:26; Admin Dose 650 MG; Start 08/27/16 at 23:00 Heparin Sodium (Porcine) (Heparin (5000 Units/0.5 ml)) 5,000 unit Q8 SC Last administered on 08/29/16 13:34; Admin Dose 5,000 UNIT; Start 08/27/16 at 23:00 Imipramine HCl (Tofranil) 10 mg HS PO Last administered on 08/28/16 22:14; Admin Dose 10 MG; Start 08/28/16 at 21:00 Montelukast Sodium (Singulair) 10 mg DAILY PO Last administered on 08/29/16 09 :09; Admin Dose 10 MG; Start 08/28/16 at 09:00 Oxybutynin Chloride (Ditropan) 5 mg DAILY PO Last administered on 08/29/16 09: 09; Admin Dose 5 MG; Start 08/28/16 at 09:00 Pramipexole (Mirapex) 1.5 mg TID PO Last administered on 08/29/16 13:26; Admin Dose 1.5 MG; Start 08/28/16 at 09:00 Rasagiline (Azilect) 1 mg DAILY PO Last administered on 08/29/16 09:11; Admin Dose 1 MG; Start 08/28/16 at 09:00 Trihexyphenidyl HCl 1 mg 1 mg AM PO Last administered on 08/29/16 09:09; Admin Dose 1 MG; Start 08/28/16 at 09:00 Ceftriaxone Sodium (Rocephin) 50 ml @ 100 mls/hr Q24H IVPB Last administered on 08/29/16 05:21; Admin Dose 100 MLS/HR; Start 08/28/16 at 06:00 Meclizine HCl (Antivert) 25 mg Q8H PRN PO VERTIGO; Start 08/28/16 at 06:30 VI BECKER MD Aug 29, 2016 15:48
[2016-08-29] MEDS: IMIPRAMINE 10 MG TAB PO SCH (22:40)
[2016-08-30] VITALS (7 sets, daily range): BP systolic 138–153; BP diastolic 69–78; PULSE 80; RESP 16–20
[2016-08-30] MEDS: CEFTRIAXONE 1 GM/50 ML (PMX) 50 ML IVPB SCH (05:27)
[2016-08-30] MEDS: HEPARIN 5,000 UNIT/0.5 ML VIAL SC SCH ×3 (05:33→22:09)
[2016-08-30] MEDS: MONTELUKAST 10 MG TAB PO SCH (08:25)
[2016-08-30] MEDS: OXYBUTYNIN 5 MG TAB PO SCH (08:25)
[2016-08-30] MEDS: PRAMIPEXOLE 1 MG TAB PO SCH ×3 (08:25→22:11)
[2016-08-30] MEDS: RASAGILINE MESYLATE 1 MG TAB PO SCH (08:25)
[2016-08-30] MEDS: TRIHEXYPHENIDYL 2 MG TAB PO SCH (08:27)
[2016-08-30 09:37] LABS: CREATININE 0.54 mg/dl (0.44-1.00); POTASSIUM 3.8 mmol/L (3.5-5.1)
[2016-08-30] MEDS: ACETAMINOPHEN 325 MG TAB PO PRN (11:25)
[2016-08-30] MEDS ORDERED: LEVOFLOXACIN 750 MG TABLET PO SCH (11:30)
--- NOTE | 2016-08-30 13:33 | PN ---
Date/Time of Note Date/Time of Note DATE: 08/30/16 TIME: 13:32 Assessment/Plan VTE Prophylaxis VTE Prophylaxis Intervention: SCD's Lines/Catheters IV Catheter Type (from Nrsg): Peripheral IV Urinary Cath still in place: No Assessment/Plan Assessment/Plan 85 yo F with pmhx PD admitted for fever, with c/o fatigue and generalized weakness. Also found to have mild lactic acidosis, now resolved. #fever+tachycardia=sepsis, from urinary source with hematologic spread. Pathogen =EColi change ceftriaxone to high dose PO cipro. Anticipate total of 14 days of abx #fatigue/weakness of 12 mos duration -TSH nl. PT eval -RD eval #PD: cont home meds Prophx: SCDs dc tomorrow if remains afebrile Subjective 24 Hr Interval Summary Free Text/Dictation Pt feels better. Wants to know when she can go home. Hungarian language line used to facilitate communication Exam/Review of Systems Vital Signs Vitals Vital Signs Date Time Temp Pulse Resp B/P Pulse Ox O2 Delivery O2 Flow Rate FiO2 08/30/16 11:20 98.6 77 18 138/77 97 08/29/16 08:50 Nasal Cannula 2.0 08/28/16 05:27 27 Intake and Output 08/29/16 08/29/16 08/30/16 15:00 23:00 07:00 Intake Total 720 ml 100 ml Balance 720 ml 100 ml Exam nad edentulous no mrg lungs clear abd soft no edema urine and blood cultures with ECOli S to cipro Results Result Diagram: 08/28/16 0654 08/30/16 0750 Results 24 hrs Laboratory Tests Test 08/30/16 07:50 Sodium Level 134 L Potassium Level 3.8 Chloride Level 105 Carbon Dioxide Level 24 Anion Gap 9 Blood Urea Nitrogen 12 Creatinine 0.54 Glucose Level 103 Calcium Level 9.0 Medications Medications Current Medications Ondansetron HCl (Zofran Inj) 4 mg Q6H PRN IV NAUSEA AND/OR VOMITING Last administered on 08/28/16 14:19; Admin Dose 4 MG; Start 08/27/16 at 23:00 Acetaminophen (Tylenol Tab) 650 mg Q6H PRN PO PAIN LEVEL 1-3 OR FEVER Last administered on 08/30/16 11:25; Admin Dose 650 MG; Start 08/27/16 at 23:00 Heparin Sodium (Porcine) (Heparin (5000 Units/0.5 ml)) 5,000 unit Q8 SC Last administered on 08/30/16 05:33; Admin Dose 5,000 UNIT; Start 08/27/16 at 23:00 Imipramine HCl (Tofranil) 10 mg HS PO Last administered on 08/29/16 22:40; Admin Dose 10 MG; Start 08/28/16 at 21:00 Montelukast Sodium (Singulair) 10 mg DAILY PO Last administered on 08/30/16 08 :25; Admin Dose 10 MG; Start 08/28/16 at 09:00 Oxybutynin Chloride (Ditropan) 5 mg DAILY PO Last administered on 08/30/16 08: 25; Admin Dose 5 MG; Start 08/28/16 at 09:00 Pramipexole (Mirapex) 1.5 mg TID PO Last administered on 08/30/16 12:14; Admin Dose 1.5 MG; Start 08/28/16 at 09:00 Rasagiline (Azilect) 1 mg DAILY PO Last administered on 08/30/16 08:25; Admin Dose 1 MG; Start 08/28/16 at 09:00 Trihexyphenidyl HCl (Artane) 1 mg AM PO Last administered on 08/30/16 08:27; Admin Dose 1 MG; Start 08/28/16 at 09:00 Meclizine HCl (Antivert) 25 mg Q8H PRN PO VERTIGO; Start 08/28/16 at 06:30 Levofloxacin (Levaquin) 750 mg Q48H PO Last administered on 08/30/16 11:26; Admin Dose 750 MG; Start 08/30/16 at 11:30 VI BECKER MD Aug 30, 2016 13:33
[2016-08-30] MEDS: ONDANSETRON 4 MG INJ IV PRN (13:40)
[2016-08-30] MEDS: IMIPRAMINE 10 MG TAB PO SCH (22:11)
[2016-08-31] VITALS: BP_SYST 116; BP_SYST 142; BP_DIAS 60; BP_DIAS 65; RESP 15; RESP 20
[2016-08-31 04:00] VITALS: BP 155/77; RESP 20
[2016-08-31] MEDS: HEPARIN 5,000 UNIT/0.5 ML VIAL SC SCH (05:45)
[2016-08-31 07:23] VITALS: BP 139/66; RESP 18
[2016-08-31] MEDS ORDERED: LEVO750T25 PO (08:41)
--- NOTE | 2016-08-31 08:43 | PDOCDIS ---
Discharge Instructions CONDITION Patient Condition: Good HOME CARE INSTRUCTIONS: Special Diet: Cardiac FOLLOW UP/APPOINTMENTS Follow-up Plan Follow up with your regular doctor within 1 week VI BECKER MD Aug 31, 2016 08:43
--- NOTE | 2016-08-31 08:49 | DS ---
Date/Time of Note Date/Time of Note DATE: 08/31/16 TIME: 08:43 Discharge Summary Admission/Discharge Info Admit Date/Time Aug 27, 2016 at 19:17 Discharge Date/Time Patient Condition: Good Procedures micro data: urine and blood cultures from admission: EColi S to Levofloxacin f/u blood cultures negative Hx of Present Illness Chief complaint: Fever 85-year-old woman brought in by son for fever 2 days and some URI symptoms including shortness of breath and congestion although son denies cough. Patient has had no chest pain or abdominal pain, no vomiting or diarrhea, no headache or blurry vision, no loss of consciousness. Son states she had a similar episode a few months ago diagnosed as pneumonia and UTI. Patient has a history of dementia and Parkinson's and at the current time is unable to give adequate responses. Allergies: NKDA Medications: See [facility] Hospital Course Pt defervesced within 24 hours of admission. Urine and blood cultures from admission returned with same strain of EColi. Etology of patient's sepsis was ecoli cystitis with resultant bacteremia. Pt to be discharged with PO levoflox, plan is 14 total days of antimicrobial therapy. No changes from admit meds beyond rx for 12 days of levoflox (renally adjusted by pharmacy. Cr nl but pt with advanced age. Affirmed this dosing regimen with pharmacy prior to discharge) Home Meds Active Scripts Levofloxacin* (Levaquin*) 750 Mg Tablet, 750 MG PO Q48H for 12 Days, #6 TAB Prov:VI BECKER MD 08/31/16 Reported Medications Znabaqtyqx-Sfmipdfomd-FDBB (Tribenzor) 40-5-12.5 Mg Tablet, 1 TAB PO DAILY, TAB 08/27/16 Pramipexole* (Pramipexole*) 1.5 Mg Tablet, 1.5 MG PO TID, TAB 08/27/16 Oxybutynin Chloride* (Ditropan*) 5 Mg Tab, 5 MG PO DAILY, TAB 06/28/16 Famotidine* (Famotidine*) 40 Mg Tablet, 40 MG PO HS, #30 TAB 06/28/16 Dexlansoprazole (Dexilant) 60 Mg Pérez., 60 MG PO DAILY, #30 CAP 06/28/16 Meclizine Hcl* (Bonine*) 25 Mg Tab.chew, 25 MG PO Q8H Y for VERTIGO, TAB.CHEW 06/28/16 Clonidine HCl (Clonidine HCl ER) 0.1 Mg Tab.er.12h, 0.1 MG PO TID 09/17/13 Montelukast Sodium* (Singulair*) 10 Mg Tablet, 10 MG PO DAILY, TAB 09/17/13 Trihexyphenidyl Hcl* (Trihexyphenidyl Hcl*) 2 Mg Tab, 1 MG PO AM, TAB 09/17/13 Imipramine Hcl* (Imipramine Hcl*) 10 Mg Tablet, 10 MG PO HS, TAB 09/17/13 Rasagiline Mesylate* (Azilect*) 1 Mg Tablet, 1 MG PO DAILY 06/28/12 Isosorbide Mononitrate* (Imdur*) 60 Mg Tab.sr.24h, 60 MG PO DAILY 06/28/12 Atenolol (Tenormin) 25 Mg Tab, 25 MG PO DAILY 06/28/12 Discontinued Reported Medications Atkpekrnmr-Adrpvybfpj-JMCG (Tribenzor) 40-10-12.5 Mg Tablet, 1 TAB PO DAILY, TAB 06/28/16 Follow-up Plan PCP within 7 days Primary Care Provider Cain Quiroz Time spent on discharge: > 30 minutes VI BECKER MD Aug 31, 2016 08:48
[2016-08-31] MEDS: PRAMIPEXOLE 1 MG TAB PO SCH (11:09)
[2016-08-31] MEDS: TRIHEXYPHENIDYL 2 MG TAB PO SCH (11:09)
[2016-08-31] MEDS: RASAGILINE MESYLATE 1 MG TAB PO SCH (11:09)
[2016-08-31] MEDS: OXYBUTYNIN 5 MG TAB PO SCH (11:10)
[2016-08-31] MEDS: MONTELUKAST 10 MG TAB PO SCH (11:10)
== END 2016-08-31 11:55 | disposition home or self-care (01) | DRG 872 ==
LOC: E/R 16:40 → MS4 19:17 → TEL 20:43
PROVIDERS: ADMIT Internal Medicine; ATTEND Internal Medicine
DX: A41.50 Gram-negative sepsis, unspecified (principal); E87.2 Acidosis; N39.0 Urinary tract infection, site not specified; E86.0 Dehydration; I10 Essential (primary) hypertension; K21.9 Gastro-esophageal reflux disease without esophagitis; B96.20 Unspecified Escherichia coli [E. coli] as the cause of diseases classified elsewhere; Z87.01 Personal history of pneumonia (recurrent); Z87.440 Personal history of urinary (tract) infections
CPT/HCPCS: 36415; 71010; 80048; 80053; 81001; 83036; 83605; 83690; 84443; 84484; 85025; 85610; 85730; 87040; 87086; 93005; 94664; 96374; 96375; J0696; J1644; J2405; J3370; J7030

== ENCOUNTER 2017-11-24 14:47 | Emergency (ER) | END 2017-11-24 18:21 | disposition home or self-care (01) ==

== ENCOUNTER 2017-11-29 04:43 | Inpatient (IN) | END 2017-12-03 15:35 | disposition home health service (06) | DRG 552 ==

== ENCOUNTER 2018-05-03 13:21 | Emergency (ER) | payer MEDICARE, OTHER ==
[~2018-05-03] VITALS: Ht 157.5 cm; Wt 46.4 kg
[~2018-05-03 13:21] MED LIST changes: -ATEN-138 PO; +CITA10TA5 PO; -CLON-339 PO; +CYAN100T PO; -FAMO40TA52 PO; +FER325 PO; +HYDR-4011 PO; -IMIP10TA2 PO; -ISOS60TA52 PO; +LORA1TAB PO; +MAGN400O19 PO; +MECL-77 PO; -MECL-90 PO; -MONT10TA21 PO; +OLME1TAB33 PO; -OLME1TAB35 PO; +OXYB5TAB22 PO; -OXYB5TAB7 PO; +PRAM1.5T PO; -RASA1TAB PO; -TRIH2TAB2 PO
[2018-05-03] MEDS ORDERED: morphine 4 MG/ML VIAL IV STA (13:26)
[2018-05-03] MEDS ORDERED: ONDANSETRON 4 MG INJ IV STA ×2 (13:26→14:46)
[2018-05-03 14:06] VITALS: Ht 157.5 cm; Wt 46.4 kg
[2018-05-03] MEDS ORDERED: AMLO5TAB4 PO (14:39)
[2018-05-03] MEDS ORDERED: CLON-379 PO (14:39)
[2018-05-03] MEDS ORDERED: FURO20TA3 PO (14:40)
[2018-05-03] MEDS ORDERED: ONDA4TAB8 PO (14:40)
[2018-05-03] MEDS ORDERED: OXYB5TAB22 PO (14:41)
[2018-05-03] MEDS ORDERED: MORP15TA92 PO (14:41)
[2018-05-03] MEDS ORDERED: LORAZEPAM 2 MG INJ IV ONE (15:00)
[2018-05-03] MEDS ORDERED: DOCU-144 PO (15:37)
[2018-05-03] MEDS ORDERED: ONDA4TAB14 PO (15:37)
[2018-05-03] MEDS ORDERED: PANT40TA3 PO (15:37)
--- NOTE | 2018-05-03 16:14 | ERD ---
ER Documentation Chief Complaint Chief Complaint AP radiating to L X 1 day HPI Patient is an 87-year-old female who presents with abdominal pain and vomiting. The patient was brought in by ambulance. Symptoms started at 8 AM. It hurts to breathe and is worse with palpation and with movement. Upon review of old medical records this is the patient's 14th visit to the ER since 2006 and she has frequent presentations for the same. Our charge nurse has seen her previously with the same presentation. ROS All systems reviewed and are negative except as per history of present illness. Medications Home Meds Active Scripts Docusate Sodium* (Colace*) 100 Mg Capsule, 100 MG PO DAILY, #30 CAP Prov:PARAMJIT CUNNINGHAM MD 05/03/18 Ondansetron (Ondansetron Odt) 4 Mg Tab.rapdis, 4 MG PO Q6H PRN for NAUSEA AND/OR VOMITING, #10 TAB Prov:PARAMJIT CUNNINGHAM MD 05/03/18 Pantoprazole* (Protonix*) 40 Mg Tablet.dr, 40 MG PO DAILY, #20 TAB Prov:PARAMJIT CUNNINGHAM MD 05/03/18 Ferrous Sulfate* (Ferrous Sulfate*) 325 Mg Tabec, 325 MG PO BID, #60 TAB Prov:HEENA GONZALEZ V. TUMBLING BARREL PAINTER 12/03/17 Hydrocodone/Acetaminophen ([place] 5-325 Tablet) 1 Each Tablet, 1 EACH PO Q6 PRN for SEVERE PAIN LEVEL 7-10, #10 TAB Prov:HEENA GONZALEZ V. TUMBLING BARREL PAINTER 12/03/17 Reported Medications Oxybutynin Chloride* (Ditropan* XL) 5 Mg Tabsr, 5 MG PO DAILY, TAB.SA 05/03/18 Morphine Sulfate* (Ms Contin*) 15 Mg Tablet.sa, 15 MG PO Q12, TAB 05/03/18 Furosemide* (Furosemide*) 20 Mg Tablet, 20 MG PO DAILY, #60 TAB 05/03/18 Ondansetron Hcl* (Zofran*) 4 Mg Tablet, 4 MG PO BID PRN for NAUSEA AND OR VOMITING, TAB 05/03/18 Clonidine Hcl* (Clonidine Hcl*) 0.1 Mg Tab, 0.1 MG PO DAILY PRN for ELEVATED BLOOD PRESSURE, TAB 05/03/18 Amlodipine Besylate* (Norvasc*) 5 Mg Tablet, 5 MG PO DAILY, TAB 05/03/18 Pramipexole* (Pramipexole*) 1.5 Mg Tablet, 1.5 MG PO TID, TAB 11/24/17 Meclizine Hcl* (Meclizine Hcl*) 25 Mg Tablet, 25 MG PO Q8H PRN for DIZZINESS, TAB 11/24/17 Citalopram Hydrobromide* (Citalopram Hydrobromide*) 10 Mg Tablet, 10 MG PO DAILY, #30 TAB 11/24/17 Discontinued Reported Medications Oxybutynin Chloride* (Ditropan* XL) 5 Mg Tabsr, 5 MG PO DAILY, TAB.SA 11/24/17 Kexnezthlp-Ksmxziacie-WQRD (Tribenzor) 40-5-25 Mg Tablet, 1 TAB PO DAILY, TAB 11/24/17 Dexlansoprazole (Dexilant) 60 Mg Cap., 60 MG PO DAILY, #30 CAP 11/24/17 Discontinued Scripts Cyanocobalamin* (Vitamin B12*) 100 Mcg Tab, 100 MCG PO DAILY, #30 TAB Prov:HEENA GONZALEZ NP 12/03/17 Magnesium Hydroxide* (Milk Of Magnesia*) 400 Mg/5 Ml Oral.susp, 30 ML PO DAILY for constipation, #100 ML Prov:HEENA GONZALEZ V. TUMBLING BARREL PAINTER 12/03/17 Lorazepam* (Lorazepam*) 1 Mg Tablet, 1 MG PO Q8H PRN for ANXIETY, #12 TAB Prov:BURTON TYLER MD 11/24/17 Allergies Allergies: Coded Allergies: No Known Allergies (Verified Allergy, Mild, 05/03/18) PMhx/Soc History of Surgery: No (Back Sx,Shoulder Sx,Hernia Sx, Stomach Sx, Cataract Sx.) Anesthesia Reaction: No Hx Neurological Disorder: No Hx Respiratory Disorders: Yes (Uses oxygen at home sometimes, Pneumonia.) Hx Cardiac Disorders: No Hx Psychiatric Problems: No (Parkinson.) Hx Miscellaneous Medical Probl: Yes (HTN , CAD , PARKINSON'S DISEASE , OSTEOPROSIS .) Hx Alcohol Use: No Hx Substance Use: No Hx Tobacco Use: No FmHx Family History: No diabetes Physical Exam Vitals Vital Signs Date Temp Pulse Resp B/P (MAP) Pulse Ox O2 O2 Flow FiO2 Time Delivery Rate 05/03/18 98.8 66 18 142/91 90 14:06 (108) Physical Exam Const: Moderate distress Head: Atraumatic Eyes: Normal Conjunctiva ENT: Normal External Ears, Nose and Mouth. Neck: Full range of motion. No meningismus. Resp: Clear to auscultation bilaterally Cardio: Regular rate and rhythm, no murmurs Abd: Diffuse tenderness to palpation without rebound or guarding Skin: No petechiae or rashes Back: No midline or flank tenderness Ext: No cyanosis, or edema Neur: Awake and alert Psych: Normal Mood and Affect Result Diagram: 05/03/18 1350 05/03/18 1350 Results 24 hrs Laboratory Tests Test 05/03/18 13:50 White Blood Count 8.2 10^3/ul Red Blood Count 3.77 10^6/ul Hemoglobin 10.7 g/dl Hematocrit 33.7 % Mean Corpuscular Volume 89.4 fl Mean Corpuscular Hemoglobin 28.4 pg Mean Corpuscular Hemoglobin Concent 31.8 g/dl Red Cell Distribution Width 14.6 % Platelet Count 247 10^3/UL Mean Platelet Volume 10.0 fl Immature Granulocytes % 0.200 % Neutrophils % 79.8 % Lymphocytes % 13.5 % Monocytes % 5.1 % Eosinophils % 1.3 % Basophils % 0.1 % Nucleated Red Blood Cells % 0.0 /100WBC Immature Granulocytes # 0.020 10^3/ul Neutrophils # 6.6 10^3/ul Lymphocytes # 1.1 10^3/ul Monocytes # 0.4 10^3/ul Eosinophils # 0.1 10^3/ul Basophils # 0.0 10^3/ul Nucleated Red Blood Cells # 0.0 10^3/ul Sodium Level 143 mmol/L Potassium Level 3.8 mmol/L Chloride Level 108 mmol/L Carbon Dioxide Level 25 mmol/L Anion Gap 10 Blood Urea Nitrogen 23 mg/dl Creatinine 0.79 mg/dl Est Glomerular Filtrat Rate mL/min mL/min Glucose Level 105 mg/dl Calcium Level 9.9 mg/dl Total Bilirubin 0.1 mg/dl Direct Bilirubin 0.00 mg/dl Indirect Bilirubin 0.1 mg/dl Aspartate Amino Transf (AST/SGOT) 25 IU/L Alanine Aminotransferase (ALT/SGPT) 18 IU/L Alkaline Phosphatase 96 IU/L Troponin I < 0.012 ng/ml Total Protein 7.8 g/dl Albumin 4.0 g/dl Globulin 3.80 g/dl Albumin/Globulin Ratio 1.05 Lipase 91 U/L Current Medications Medications Dose Sig/Livan Start Time Status Last (Trade) Ordered Route PRN Stop Time Admin Dose Reason Admin Morphine 4 mg ONCE STAT 05/03/18 DC 05/03/18 Sulfate IV 13:26 13:46 (morphine) 05/03/18 13:27 Ondansetron 4 mg ONCE STAT 05/03/18 DC 05/03/18 HCl (Zofran IV 13:26 13:46 Inj) 05/03/18 13:27 Ondansetron 4 mg ONCE STAT 05/03/18 DC 05/03/18 HCl (Zofran IV 14:46 14:59 Inj) 05/03/18 14:47 Lorazepam 1 mg ONCE ONCE 05/03/18 DC 05/03/18 (Ativan) IV 15:00 14:59 05/03/18 15:01 Procedures/MDM CT abdomen pelvis read by radiology. EKG read by me: Rate/Rhythm: Regular rate and rhythm at a normal rate Intervals: Normal Impression: No evidence of ischemia or arrhythmia Patient is an 87-year-old female presents with abdominal pain and vomiting. Laboratory studies are basically normal. CT scan shows constipation but no surgical process. The patient will be discharged with Protonix, Zofran, and Colace. I believe outpatient management is appropriate but the patient will need close follow-up with her primary doctor within 24 hours for reevaluation. She can return sooner for any worsening symptoms. Copies of the laboratory studies and CT scan were provided to the patient prior to discharge. I doubt appendicitis, cholecystitis, pancreatitis, or bowel obstruction. Departure Diagnosis: Primary Impression: Constipation Constipation type: unspecified constipation type Qualified Codes: K59.00 - Constipation, unspecified Additional Impressions: Abdominal pain Abdominal location: generalized Qualified Codes: R10.84 - Generalized abdominal pain Vomiting Vomiting type: unspecified Vomiting Intractability: non-intractable Nausea presence: with nausea Qualified Codes: R11.2 - Nausea with vomiting, unspecified Condition: Fair Patient Instructions: Abdominal Pain, Constipation (Adult), Vomiting (6Y-Adult) Referrals: Your doctor Additional Instructions: Call your primary care doctor TOMORROW for an appointment during the next 1-2 days.See the doctor sooner or return here if your condition worsens before your appointment time. PARAMJIT CUNNINGHAM MD May 03, 2018 16:14
[2018-05-03 16:15] VITALS: BP 149/92; PULSE 84; RESP 18
[2018-05-03] MEDS ORDERED: PRAM1.5T PO (17:56)
[2018-05-03] MEDS ORDERED: HYDR-4011 PO (18:00)
[2018-05-03] MEDS ORDERED: CITA10TA5 PO (18:00)
[2018-05-03] MEDS ORDERED: MECL-113 PO (18:04)
== END 2018-05-03 16:30 | disposition home or self-care (01) ==
LOC: E/R 13:21
DX: K59.00 Constipation, unspecified (principal); R11.10 Vomiting, unspecified; I10 Essential (primary) hypertension; I25.10 Atherosclerotic heart disease of native coronary artery without angina pectoris; G20 Parkinson's disease
CPT/HCPCS: 36415; 74176; 80053; 83690; 84484; 85025; 93005; 96374; 96375; 96376; 99285; J2060; J2270; J2405

== ENCOUNTER 2018-05-03 16:38 | Inpatient (IN) | payer MEDICARE, OTHER ==
[~2018-05-03] VITALS: Ht 152.4 cm; Wt 41.9 kg
[~2018-05-03 16:38] MED LIST changes: +AMLO5TAB4 PO; +CLON-379 PO; +DOCU-144 PO; +FURO20TA3 PO; +MORP15TA92 PO; +ONDA4TAB14 PO; +ONDA4TAB8 PO; +PANT40TA3 PO
[2018-05-03] MEDS ORDERED: METOCLOPRAMIDE 10 MG INJ IV ONE (17:00)
[2018-05-03] MEDS ORDERED: PRAM1.5T PO (17:56)
[2018-05-03] MEDS ORDERED: HYDR-4011 PO (18:00)
[2018-05-03] MEDS ORDERED: CITA10TA5 PO (18:00)
[2018-05-03] MEDS ORDERED: MECL-113 PO (18:04)
[2018-05-03] MEDS ORDERED: ONDANSETRON 4 MG INJ IV PRN (19:00)
[2018-05-03] MEDS ORDERED: ACETAMINOPHEN 325 MG TAB PO PRN (19:00)
[2018-05-03] MEDS ORDERED: morphine 4 MG/ML VIAL IV STA (19:17)
--- NOTE | 2018-05-03 19:26 | ERD ---
ER Documentation Chief Complaint Chief Complaint Intractable vomiting X 1 day HPI Patient is a 87-year-old female who presents with vomiting. The patient was seen by myself and worked up with laboratory studies and CT scan and was going to be discharged. However the patient continued to have vomiting so needed to be reregistered for admission for persistent and intractable vomiting. The patient received 2 doses of Zofran, 1 dose of Reglan, and 1 dose of Ativan and still was having vomiting and abdominal pain. ROS All systems reviewed and are negative except as per history of present illness. Medications Home Meds Active Scripts Docusate Sodium* (Colace*) 100 Mg Capsule, 100 MG PO DAILY, #30 CAP Prov:PARAMJIT CUNNINGHAM MD 05/03/18 Ondansetron (Ondansetron Odt) 4 Mg Tab.rapdis, 4 MG PO Q6H PRN for NAUSEA AND/OR VOMITING, #10 TAB Prov:PARAMJIT CUNNINGHAM MD 05/03/18 Pantoprazole* (Protonix*) 40 Mg Tablet.dr, 40 MG PO DAILY, #20 TAB Prov:PARAMJIT CUNNINGHAM MD 05/03/18 Reported Medications Meclizine Hcl (Travel Sickness) 25 Mg Tab.chew, 25 MG PO Q8H, TAB.CHEW 05/03/18 Hydrocodone/Acetaminophen ([place] 5-325 Tablet) 1 Each Tablet, 1 EACH PO QID PRN for NEEDED, TAB 05/03/18 Citalopram Hydrobromide* (Citalopram Hydrobromide*) 10 Mg Tablet, 10 MG PO DAILY, #30 TAB 05/03/18 Pramipexole* (Pramipexole*) 1.5 Mg Tablet, 1.5 MG PO TID, TAB 05/03/18 Oxybutynin Chloride* (Ditropan* XL) 5 Mg Tabsr, 5 MG PO DAILY, TAB.SA 05/03/18 Morphine Sulfate* (Ms Contin*) 15 Mg Tablet.sa, 15 MG PO Q12, TAB 05/03/18 Furosemide* (Furosemide*) 20 Mg Tablet, 20 MG PO DAILY, #60 TAB 05/03/18 Clonidine Hcl* (Clonidine Hcl*) 0.1 Mg Tab, 0.1 MG PO DAILY PRN for ELEVATED BLOOD PRESSURE, TAB 05/03/18 Amlodipine Besylate* (Norvasc*) 5 Mg Tablet, 5 MG PO DAILY, TAB 05/03/18 Discontinued Reported Medications Ondansetron Hcl* (Zofran*) 4 Mg Tablet, 4 MG PO BID PRN for NAUSEA AND OR VOMITING, TAB 05/03/18 Pramipexole* (Pramipexole*) 1.5 Mg Tablet, 1.5 MG PO TID, TAB 11/24/17 Oxybutynin Chloride* (Ditropan* XL) 5 Mg Tabsr, 5 MG PO DAILY, TAB.SA 11/24/17 Obbpivuzzq-Kapwewskev-JHZE (Tribenzor) 40-5-25 Mg Tablet, 1 TAB PO DAILY, TAB 11/24/17 Meclizine Hcl* (Meclizine Hcl*) 25 Mg Tablet, 25 MG PO Q8H PRN for DIZZINESS, TAB 11/24/17 Dexlansoprazole (Dexilant) 60 Mg Cap., 60 MG PO DAILY, #30 CAP 11/24/17 Citalopram Hydrobromide* (Citalopram Hydrobromide*) 10 Mg Tablet, 10 MG PO DAILY, #30 TAB 11/24/17 Discontinued Scripts Cyanocobalamin* (Vitamin B12*) 100 Mcg Tab, 100 MCG PO DAILY, #30 TAB Prov:GONZALEZHEENA V. TEACHER DANCING 12/03/17 Ferrous Sulfate* (Ferrous Sulfate*) 325 Mg Tabec, 325 MG PO BID, #60 TAB Prov:HEENA GONZALEZ V. TEACHER DANCING 12/03/17 Magnesium Hydroxide* (Milk Of Magnesia*) 400 Mg/5 Ml Oral.susp, 30 ML PO DAILY for constipation, #100 ML Prov:GONZALEZEBA V. TEACHER DANCING 12/03/17 Hydrocodone/Acetaminophen ([place] 5-325 Tablet) 1 Each Tablet, 1 EACH PO Q6 PRN for SEVERE PAIN LEVEL 7-10, #10 TAB Prov:HEENA GONZALEZ V. TEACHER DANCING 12/03/17 Lorazepam* (Lorazepam*) 1 Mg Tablet, 1 MG PO Q8H PRN for ANXIETY, #12 TAB Prov:BURTON TYLER MD 11/24/17 Allergies Allergies: Coded Allergies: No Known Allergies (Verified Allergy, Mild, 05/03/18) PMhx/Soc History of Surgery: No (Back Sx,Shoulder Sx,Hernia Sx, Stomach Sx, Cataract Sx.) Anesthesia Reaction: No Hx Neurological Disorder: No Hx Respiratory Disorders: Yes (Uses oxygen at home sometimes, Pneumonia.) Hx Cardiac Disorders: No Hx Psychiatric Problems: No Hx Miscellaneous Medical Probl: Yes (HTN , CAD , PARKINSON'S DISEASE , OSTEOPROSIS .) Hx Alcohol Use: No Hx Substance Use: No Hx Tobacco Use: No Smoking Status: Never smoker FmHx Family History: No diabetes Physical Exam Vitals Vital Signs Date Temp Pulse Resp B/P (MAP) Pulse Ox O2 O2 Flow FiO2 Time Delivery Rate 05/03/18 98.4 99 18 122/68 97 Room Air 18:51 (86) 05/03/18 98.4 82 18 141/92 97 16:45 (108) Physical Exam Const: No acute distress Head: Atraumatic Eyes: Normal Conjunctiva ENT: Normal External Ears, Nose and Mouth. Neck: Full range of motion. No meningismus. Resp: Clear to auscultation bilaterally Cardio: Regular rate and rhythm, no murmurs Abd: Diffuse tenderness to palpation without rebound or guarding Skin: No petechiae or rashes Back: No midline or flank tenderness Ext: No cyanosis, or edema Neur: Awake and alert Psych: Normal Mood and Affect Results 24 hrs Current Medications Medications Dose Sig/Livan Start Time Status Last (Trade) Ordered Route PRN Stop Time Admin Dose Reason Admin 5 mg ONCE ONCE 05/03/18 DC 05/03/18 Metoclopramid IV 17:00 17:10 e HCl 05/03/18 17:01 (Reglan) Ondansetron 4 mg BRIDGE ORDER 05/03/18 05/03/18 HCl (Zofran PRN IV 19:00 19:22 Inj) NAUSEA/VOMITI 05/04/18 18:59 NG 650 mg ER BRIDGE 05/03/18 Acetaminophen PRN PO 19:00 (Tylenol .MILD PAIN 05/04/18 18:59 Tab) 1-3 OR TEMP Morphine 4 mg ONCE STAT 05/03/18 DC 05/03/18 Sulfate IV 19:17 19:22 (morphine) 05/03/18 19:18 Sodium 1,000 ml @ Q20H IV 05/03/18 UNV Chloride 50 mls/hr 19:21 IV Flush 3 ml PER 05/03/18 UNV (NS 3 ml) PROTOCOL IV 19:30 Ondansetron 4 mg Q6H PRN 05/03/18 UNV HCl (Zofran IV 19:30 Inj) NAUSEA/VOMITI NG 650 mg Q6H PRN 05/03/18 UNV Acetaminophen PO .PAIN 1-3 19:30 (Tylenol OR TEMP Tab) 1 tab Q6H PRN 05/03/18 UNV Acetaminophen PO .PAIN 4-6 19:30 / Hydrocodone Bitart ([place] (5/325)) 40 mg DAILY@06 05/03/18 UNV Pantoprazole IV 19:30 (Protonix Iv) Procedures/MDM Patient is an 87-year-old female presents with abdominal pain and vomiting. The patient has intractable vomiting as she is still vomiting despite 2 doses of Zofran, 1 dose of Reglan, and 1 dose of Ativan. The patient will be admitted to the panel team to a medical surgical observation bed. The patient has no appendicitis, cholecystitis, pancreatitis, or bowel obstruction at this time. Departure Diagnosis: Primary Impression: Vomiting Vomiting type: unspecified Vomiting Intractability: intractable Nausea presence: with nausea Qualified Codes: R11.2 - Nausea with vomiting, unspecified Condition: PARAMJIT Ventura MD May 03, 2018 19:26
[2018-05-03] MEDS ORDERED: HYDROCODONE/APAP (5/325) TAB PO PRN (19:30)
[2018-05-03] MEDS ORDERED: NACL 0.9% 3 ML SYG IV SCH (19:30)
[2018-05-03] MEDS: FAMOTIDINE 20 MG INJ IV SCH (20:42)
[2018-05-03 21:14] VITALS: BP 122/65; PULSE 79; RESP 16
[2018-05-03] MEDS: SOD CHLORIDE 0.9% 1,000 ML IV SCH (21:54)
[2018-05-03 22:55] VITALS: Ht 152.4 cm; Wt 41.9 kg
--- NOTE | 2018-05-03 23:46 | HP ---
Date/Time of Note Date/Time of Note DATE: 05/03/18 TIME: 23:46 Assessment/Plan VTE Prophylaxis Pharmacological prophylaxis: heparin Lines/Catheters IV Catheter Type (from Nrsg): Saline Lock Assessment/Plan Assessment/Plan 1. Intractable nausea/vomiting: CT shows finding of ileus, thickening of the stomach as well as stool-filled colon -Will provide antiemetics as needed -GI consult for evaluation of thickening of the stomach -Will consider NG tube to suction if symptoms persist -Stool softener -PPI 2. Bilateral hydronephrosis with possible bladder outlet obstruction -Place a Francois -Urology consult 3. Parkinson's disease: Supportive care 4. History of rectal prolapse: During last admission here, plan was for outpatient follow-up for possible surgical intervention -Consider in-house surgical surgical consult 5. Hypertension: BP within goal. Continue home med 6. Depression: Continue citalopram 7. Chronic spinal fracture: Pain meds as needed CODE STATUS: DNR/DNI HPI/ROS Admit Date/Time Admit Date/Time May 03, 2018 at 18:47 Hx of Present Illness This is an 87-year-old female with a history of Parkinson's disease, CAD, hypertension, anemia, rectal prolapse, depression, T11 burst fracture, multiple chronic compression fracture of the spine. Patient was presented to ER because of vomiting. Symptoms is been going on for the past few days. Emesis has been nonbloody nonbilious. CT abdomen pelvis shows the following. 1. Moderate size hiatal hernia. There is thickening of the stewart of the stomach at the diaphragmatic hiatus. Cannot exclude underlying inflammation or possibly malignancy. The stomach is also mildly distended, thickening of the stewart of the distal stomach. Recommend follow-up upper GI endoscopy. 2. Stool filled loops of large bowel suggestive of constipation. Several fluid filled loops of mildly distended small bowel suggestive of gastroenteritis and ileus. 3. Right upper pole renal cyst. There is bilateral hydroureteronephrosis, new since prior examination. No gross renal/ureteric calculi. The bladder is mildly distended and findings may be secondary to bladder outlet obstruction. Recommend decompression and followup. 4. Generalized osteopenia and multilevel degenerative disease of the spine. Chronic compression deformity of T11, L1, L2, L3 and L4. 5. Cholelithiasis without gross CT evidence of inflammatory changes. 6. Atherosclerotic disease of the aorta. Patient was treated with Zofran and Reglan and while she was dressing up ready to go home, she started vomiting again and as such the decision was made to admit her. Patient is DNR/DNI. PMH/Family/Social Past Medical History Medical History: other (See HPI) Medications Current Medications Ondansetron HCl (Zofran Inj) 4 mg BRIDGE ORDER PRN IV NAUSEA/VOMITING Last administered on 05/03/18at 19:22; Admin Dose 4 MG; Start 05/03/18 at 19:00; Stop 05/04/18 at 18:59 Acetaminophen (Tylenol Tab) 650 mg ER BRIDGE PRN PO .MILD PAIN 1-3 OR TEMP; Start 05/03/18 at 19:00; Stop 05/04/18 at 18:59 Sodium Chloride 1,000 ml @ 50 mls/hr Q20H IV Last administered on 05/03/18at 21:54; Admin Dose 50 MLS/HR; Start 05/03/18 at 19:21 IV Flush (NS 3 ml) 3 ml PER PROTOCOL IV ; Start 05/03/18 at 19:30 Ondansetron HCl (Zofran Inj) 4 mg Q6H PRN IV NAUSEA/VOMITING; Start 05/03/18 at 19:30 Acetaminophen (Tylenol Tab) 650 mg Q6H PRN PO .PAIN 1-3 OR TEMP; Start 05/03/18 at 19:30 Acetaminophen/ Hydrocodone Bitart ([place] (5/325)) 1 tab Q6H PRN PO .PAIN 4-6; Start 05/03/18 at 19:30 Famotidine (Pepcid Iv) 20 mg DAILY IV Last administered on 05/03/18at 20:42; Admin Dose 20 MG; Start 05/03/18 at 20:00 Coded Allergies: No Known Allergies (Verified Allergy, Mild, 05/03/18) Past Surgical History Past Surgical Hx: other (See HPI) Family History Significant Family History: other (Unknown) Social History Alcohol Use: none Smoking Status: Never smoker Drug Use: none Exam/Review of Systems Vital Signs Vitals Vital Signs Date Temp Pulse Resp B/P (MAP) Pulse Ox O2 O2 Flow FiO2 Time Delivery Rate 05/03/18 98.7 79 16 122/65 97 21:14 (84) 05/03/18 Room Air 20:30 Exam Constitutional: other (No acute distress) Head: normocephalic, atraumatic Eyes: PERRL Respiratory: clear to auscultation Cardiovascular: regular rate and rhythm, nl pulses Gastrointestinal: soft, tender Extremities: normal pulses BENY AUGUSTINE MD May 03, 2018 23:46
--- NOTE | 2018-05-03 23:49 | HP ---
Date/Time of Note Date/Time of Note DATE: 05/03/18 TIME: 23:49 Assessment/Plan VTE Prophylaxis Pharmacological prophylaxis: other Pharm contraindication: other Lines/Catheters IV Catheter Type (from Nrsg): Saline Lock Assessment/Plan Assessment/Plan Duplicate. See other H&P HPI/ROS Admit Date/Time Admit Date/Time May 03, 2018 at 18:47 Hx of Present Illness Duplicate. See other H&P PMH/Family/Social Past Medical History Duplicate. See other H&P Medications Current Medications Ondansetron HCl (Zofran Inj) 4 mg BRIDGE ORDER PRN IV NAUSEA/VOMITING Last administered on 05/03/18at 19:22; Admin Dose 4 MG; Start 05/03/18 at 19:00; Stop 05/04/18 at 18:59 Acetaminophen (Tylenol Tab) 650 mg ER BRIDGE PRN PO .MILD PAIN 1-3 OR TEMP; Start 05/03/18 at 19:00; Stop 05/04/18 at 18:59 Sodium Chloride 1,000 ml @ 50 mls/hr Q20H IV Last administered on 05/03/18at 21:54; Admin Dose 50 MLS/HR; Start 05/03/18 at 19:21 IV Flush (NS 3 ml) 3 ml PER PROTOCOL IV ; Start 05/03/18 at 19:30 Ondansetron HCl (Zofran Inj) 4 mg Q6H PRN IV NAUSEA/VOMITING; Start 05/03/18 at 19:30 Acetaminophen (Tylenol Tab) 650 mg Q6H PRN PO .PAIN 1-3 OR TEMP; Start 05/03/18 at 19:30 Acetaminophen/ Hydrocodone Bitart ([place] (5/325)) 1 tab Q6H PRN PO .PAIN 4-6; Start 05/03/18 at 19:30 Famotidine (Pepcid Iv) 20 mg DAILY IV Last administered on 05/03/18at 20:42; Admin Dose 20 MG; Start 05/03/18 at 20:00 Coded Allergies: No Known Allergies (Verified Allergy, Mild, 05/03/18) Past Surgical History Past Surgical Hx: other Family History Significant Family History: no pertinent family hx Social History Smoking Status: Never smoker Exam/Review of Systems Vital Signs Vitals Vital Signs Date Temp Pulse Resp B/P (MAP) Pulse Ox O2 O2 Flow FiO2 Time Delivery Rate 3/15/19 98.7 79 16 122/65 97 21:14 (84) 05/03/18 Room Air 20:30 BENY AUGUSTINE MD May 03, 2018 23:49
[2018-05-04] MEDS ORDERED: MAGNESIUM HYDROXIDE 30ML CUP PO ONE
[2018-05-04 01:30] VITALS: BP 141/40; PULSE 94; RESP 16
[2018-05-04] MEDS: PANTOPRAZOLE (EC) 40 MG TAB PO SCH (06:13)
[2018-05-04 07:17] VITALS: BP 132/67; PULSE 68; RESP 15
[2018-05-04] MEDS: PRAMIPEXOLE 1 MG TAB PO SCH ×3 (08:39→20:20)
[2018-05-04] MEDS: morphine (ER) 15 MG TAB PO SCH ×3 (08:46→20:20)
[2018-05-04] MEDS: DOCUSATE SODIUM 100 MG CAP PO SCH (08:47)
[2018-05-04] MEDS: FUROSEMIDE 20 MG TAB PO SCH (08:47)
[2018-05-04] MEDS: AMLODIPINE 5 MG TAB PO SCH (08:47)
[2018-05-04] MEDS: OXYBUTYNIN (XL) 5 MG TAB PO SCH (08:47)
[2018-05-04] MEDS: CITALOPRAM 20 MG TAB PO SCH (08:48)
[2018-05-04] MEDS: FAMOTIDINE 20 MG INJ IV SCH (08:48)
[2018-05-04 14:36] VITALS: BP 112/59; PULSE 78; RESP 18
[2018-05-04] MEDS: SOD CHLORIDE 0.9% 1,000 ML IV SCH ×2 (15:21→19:12)
--- NOTE | 2018-05-04 15:25 | PN ---
Date/Time of Note Date/Time of Note DATE: 05/04/18 TIME: 15:23 Assessment/Plan VTE Prophylaxis Risk score (from Nsg)>0 risk: 4 SCD applied (from Ns): Yes Pharmacological prophylaxis: NA/contraindicated Pharm contraindication: low risk/ambulating Lines/Catheters IV Catheter Type (from Nrsg): Peripheral IV Urinary Cath still in place: Yes Reason Cath still needed: urinary retention Assessment/Plan Assessment/Plan # Intractable nausea/vomiting: CT shows finding of ileus, thickening of the stomach as well as stool-filled colon -Will provide antiemetics as needed -Dr Burnette consulted for evaluation of thickening of the stomach, plan for EGD Sunday. -NG tube out -Passing bowel movements -PPI - Will try clear liquids for now # Bilateral hydronephrosis with possible bladder outlet obstruction - Francois now with decompression - Mild hematuria may be from Francois trauma. # Parkinson's disease: Supportive care # History of rectal prolapse: During last admission here, plan was for outpatient follow-up for possible surgical intervention -Consider in-house surgical surgical consult # Hypertension: BP within goal. Continue home med # Depression: Continue citalopram # Chronic spinal fracture: Pain meds as needed CODE STATUS: DNR/DNI Result Diagram: 05/04/1844005/04/18440 Subjective 24 Hr Interval Summary Free Text/Dictation Patient had another episode of vomiting downstairs in ED prior to admission. Now she reports no more nausea, feels hungry. After placing Francois cath she had a blood clot and pink urine in the tube before it cleared up. Per son at bedside, no problems voiding or hematuria prior to hospital admission. Exam/Review of Systems Exam Vitals Vital Signs Date Temp Pulse Resp B/P (MAP) Pulse Ox O2 O2 Flow FiO2 Time Delivery Rate 05/04/18 98.5 78 18 112/59 92 Room Air 14:36 (76) 05/04/18 2.0 10:57 Intake and Output 05/03/18 05/03/18 05/04/18 1515:00 23:00 07:00 IntakeIntake Total 350 ml OutputOutput Total 400 ml BalanceBalance -50 ml Exam Gen: Elderly woman lying in bed, no acute distress. Eyes: PERRL, no icterus HEENT: Dry mucous membranes, clear oropharynx Neck: supple, no lymphadenopathy Card: Regular rate and rhythm, 3/6 systolic ejection murmur Pulm: Clear to auscultation bilaterally Abd: Hypoactive bowel sounds, nontender, nondistended. Ext: no edema. Skin: warm, dry, well perfused. Results Results 24hrs Laboratory Tests Test 05/04/18 04:41 White Blood Count 6.3 # Red Blood Count 3.42 L Hemoglobin 9.8 L Hematocrit 31.5 L Mean Corpuscular Volume 92.1 Mean Corpuscular Hemoglobin 28.7 L Mean Corpuscular Hemoglobin Concent 31.1 L Red Cell Distribution Width 14.7 H Platelet Count 211 Mean Platelet Volume 10.2 Immature Granulocytes % 0.300 Neutrophils % 73.9 Lymphocytes % 19.6 Monocytes % 5.4 Eosinophils % 0.5 Basophils % 0.3 Nucleated Red Blood Cells % 0.0 Immature Granulocytes # 0.020 Neutrophils # 4.6 Lymphocytes # 1.2 Monocytes # 0.3 Eosinophils # 0.0 Basophils # 0.0 Nucleated Red Blood Cells # 0.0 Sodium Level 143 Potassium Level 3.3 L Chloride Level 108 Carbon Dioxide Level 28 Anion Gap 7 Blood Urea Nitrogen 23 H Creatinine 0.76 Est Glomerular Filtrat Rate mL/min Glucose Level 103 Hemoglobin A1c 5.4 Calcium Level 8.5 Magnesium Level 2.0 Total Bilirubin 0.2 Direct Bilirubin 0.00 Indirect Bilirubin 0.2 Aspartate Amino Transf (AST/SGOT) 21 Alanine Aminotransferase (ALT/SGPT) 18 Alkaline Phosphatase 72 Total Protein 6.3 # Albumin 3.2 L Globulin 3.10 Albumin/Globulin Ratio 1.03 Thyroid Stimulating Hormone (TSH) 1.830 Medications Medication Current Medications Ondansetron HCl (Zofran Inj) 4 mg BRIDGE ORDER PRN IV NAUSEA/VOMITING Last administered on 05/03/18at 19:22; Admin Dose 4 MG; Start 05/03/18 at 19:00; Stop 05/04/18 at 18:59 Acetaminophen (Tylenol Tab) 650 mg ER BRIDGE PRN PO .MILD PAIN 1-3 OR TEMP; Start 05/03/18 at 19:00; Stop 05/04/18 at 18:59 Sodium Chloride 1,000 ml @ 50 mls/hr Q20H IV Last administered on 05/03/18at 21:54; Admin Dose 50 MLS/HR; Start 05/03/18 at 19:21 IV Flush (NS 3 ml) 3 ml PER PROTOCOL IV ; Start 05/03/18 at 19:30 Ondansetron HCl (Zofran Inj) 4 mg Q6H PRN IV NAUSEA/VOMITING; Start 05/03/18 at 19:30 Acetaminophen (Tylenol Tab) 650 mg Q6H PRN PO .PAIN 1-3 OR TEMP; Start 05/03/18 at 19:30 Acetaminophen/ Hydrocodone Bitart ([place] (5/325)) 1 tab Q6H PRN PO .PAIN 4-6; Start 05/03/18 at 19:30 Famotidine (Pepcid Iv) 20 mg DAILY IV Last administered on 05/04/18 08:48; Admin Dose 20 MG; Start 05/03/18 at 20:00 Amlodipine Besylate (Norvasc) 5 mg DAILY PO Last administered on 05/04/18 08:47; Admin Dose 5 MG; Start 05/04/18 at 09:00 Citalopram Hydrobromide (Celexa) 10 mg DAILY PO Last administered on 05/04/18 08:48; Admin Dose 10 MG; Start 05/04/18 at 09:00 Docusate Sodium (Colace) 100 mg DAILY PO Last administered on 05/04/18 08:47; Admin Dose 100 MG; Start 05/04/18 at 09:00 Furosemide (Lasix) 20 mg DAILY PO Last administered on 05/04/18 08:47; Admin Dose 20 MG; Start 05/04/18 at 09:00 Morphine Sulfate (Ms Contin (Er)) 15 mg Q12 PO Last administered on 05/04/18 10:07; Admin Dose 15 MG; Start 05/04/18 at 09:00 Oxybutynin Chloride (Ditropan Xl) 5 mg DAILY PO Last administered on 05/04/18 08:47; Admin Dose 5 MG; Start 05/04/18 at 09:00 Pantoprazole (Protonix Tab) 40 mg DAILY@0600 PO Last administered on 05/04/18 06:13; Admin Dose 40 MG; Start 05/04/18 at 06:00 Pramipexole (Mirapex) 1.5 mg TID PO Last administered on 05/04/18 14:37; Admin Dose 1.5 MG; Start 05/04/18 at 09:00 MELODY BROCK MD May 04, 2018 15:25
[2018-05-04] MEDS: ACETAMINOPHEN 325 MG TAB PO PRN (17:09)
[2018-05-04 19:40] VITALS: BP 122/58; PULSE 81; RESP 16
[2018-05-05 01:50] VITALS: BP 133/74; PULSE 88; RESP 16
[2018-05-05] MEDS: PANTOPRAZOLE (EC) 40 MG TAB PO SCH (05:26)
[2018-05-05 07:55] VITALS: BP 122/59; PULSE 91; RESP 20
[2018-05-05] MEDS: DOCUSATE SODIUM 100 MG CAP PO SCH (08:50)
[2018-05-05] MEDS: FAMOTIDINE 20 MG INJ IV SCH (08:51)
[2018-05-05] MEDS: OXYBUTYNIN (XL) 5 MG TAB PO SCH (08:51)
[2018-05-05] MEDS: CITALOPRAM 20 MG TAB PO SCH (08:51)
[2018-05-05] MEDS: morphine (ER) 15 MG TAB PO SCH ×2 (08:51→20:55)
[2018-05-05] MEDS: FUROSEMIDE 20 MG TAB PO SCH (08:52)
[2018-05-05] MEDS: AMLODIPINE 5 MG TAB PO SCH (08:53)
[2018-05-05] MEDS: PRAMIPEXOLE 0.25 MG TAB PO SCH ×3 (09:44→20:55)
[2018-05-05] MEDS: ONDANSETRON 4 MG INJ IV PRN ×2 (11:01→18:13)
[2018-05-05] MEDS: SOD CHLORIDE 0.9% 1,000 ML IV SCH ×2 (11:21→17:10)
[2018-05-05] MEDS: POTASSIUM CHLORIDE (SR) 20 MEQ TAB PO SCH ×2 (13:38→14:37)
[2018-05-05] MEDS ORDERED: MAGNESIUM SULFATE 2 GM/50 ML 50 ML IVPB ONE (14:00)
[2018-05-05 14:22] VITALS: BP 114/55; PULSE 88; RESP 20
[2018-05-05] MEDS ORDERED: POTASSIUM CHLORIDE (SR) 20 MEQ TAB PO SCH (14:30)
--- NOTE | 2018-05-05 16:00 | PN ---
Date/Time of Note Date/Time of Note DATE: 05/05/18 TIME: 15:59 Assessment/Plan VTE Prophylaxis Risk score (from Ns)>0 risk: 5 SCD applied (from Nsg): Yes Pharmacological prophylaxis: NA/contraindicated Pharm contraindication: low risk/ambulating Lines/Catheters IV Catheter Type (from Nrsg): Peripheral IV Urinary Cath still in place: Yes Reason Cath still needed: urinary retention Assessment/Plan Assessment/Plan # Intractable nausea/vomiting: CT shows finding of ileus, thickening of the stomach as well as stool-filled colon -Will provide antiemetics as needed -Dr Burnette consulted for evaluation of thickening of the stomach, plan for EGD Sunday. -NG tube out -Passing bowel movements -PPI - Will try clear liquids for now # Bilateral hydronephrosis with possible bladder outlet obstruction - Francois now with decompression - Mild hematuria may be from Francois trauma. # Parkinson's disease: Supportive care # History of rectal prolapse: During last admission here, plan was for outpatient follow-up for possible surgical intervention -Consider in-house surgical surgical consult # Hypertension: BP within goal. Continue home med # Depression: Continue citalopram # Chronic spinal fracture: Pain meds as needed CODE STATUS: DNR/DNI Result Diagram: 05/05/18 1158 05/05/18 1158 Subjective 24 Hr Interval Summary Free Text/Dictation No acute overnight events. Patient continues to have mild nausea, no vomiting. Exam/Review of Systems Exam Vitals Vital Signs Date Temp Pulse Resp B/P (MAP) Pulse Ox O2 O2 Flow FiO2 Time Delivery Rate 05/05/18 97.0 88 20 114/55 94 14:22 (74) 05/04/18 Room Air 14:36 05/04/18 2.0 10:57 Intake and Output 05/04/18 05/04/18 05/05/18 1515:00 23:00 07:00 IntakeIntake Total 120 ml 770 ml 550 ml OutputOutput Total 1350 ml 1000 ml BalanceBalance -1230 ml -230 ml 550 ml Exam Gen: Elderly woman lying in bed, no acute distress. Eyes: PERRL, no icterus HEENT: Moist mucous membranes, clear oropharynx Neck: supple, no lymphadenopathy Card: Regular rate and rhythm, 3/6 systolic ejection murmur Pulm: Clear to auscultation bilaterally Abd: Hypoactive bowel sounds, nontender, nondistended. Ext: no edema. Skin: warm, dry, well perfused. Results Results 24hrs Laboratory Tests Test 05/05/18 11:58 White Blood Count 12.2 #H Red Blood Count 3.66 L Hemoglobin 10.4 L Hematocrit 33.8 L Mean Corpuscular Volume 92.3 Mean Corpuscular Hemoglobin 28.4 L Mean Corpuscular Hemoglobin Concent 30.8 L Red Cell Distribution Width 14.7 H Platelet Count 206 Mean Platelet Volume 9.4 Immature Granulocytes % 0.400 Neutrophils % 84.9 H Lymphocytes % 8.8 L Monocytes % 5.6 Eosinophils % 0.1 Basophils % 0.2 Nucleated Red Blood Cells % 0.0 Immature Granulocytes # 0.050 H Neutrophils # 10.4 H Lymphocytes # 1.1 Monocytes # 0.7 Eosinophils # 0.0 Basophils # 0.0 Nucleated Red Blood Cells # 0.0 Sodium Level 143 Potassium Level 2.7 *L Chloride Level 105 Carbon Dioxide Level 27 Anion Gap 11 Blood Urea Nitrogen 21 H Creatinine 0.74 Est Glomerular Filtrat Rate mL/min Glucose Level 120 Calcium Level 8.5 Phosphorus Level 3.6 Magnesium Level 1.6 L Medications Medication Current Medications Sodium Chloride 1,000 ml @ 50 mls/hr Q20H IV Last administered on 05/04/18at 19:12; Admin Dose 50 MLS/HR; Start 05/03/18 at 19:21 IV Flush (NS 3 ml) 3 ml PER PROTOCOL IV ; Start 05/03/18 at 19:30 Ondansetron HCl (Zofran Inj) 4 mg Q6H PRN IV NAUSEA/VOMITING Last administered on 05/05/18at 11:01; Admin Dose 4 MG; Start 05/03/18 at 19:30 Acetaminophen (Tylenol Tab) 650 mg Q6H PRN PO .PAIN 1-3 OR TEMP Last administered on 05/04/18at 17:09; Admin Dose 650 MG; Start 05/03/18 at 19:30 Acetaminophen/ Hydrocodone Bitart ([place] (5/325)) 1 tab Q6H PRN PO .PAIN 4-6; Start 05/03/18 at 19:30 Famotidine (Pepcid Iv) 20 mg DAILY IV Last administered on 05/05/18at 08:51; Admin Dose 20 MG; Start 05/03/18 at 20:00 Amlodipine Besylate (Norvasc) 5 mg DAILY PO Last administered on 05/05/18 08:53; Admin Dose 5 MG; Start 05/04/18 at 09:00 Citalopram Hydrobromide (Celexa) 10 mg DAILY PO Last administered on 05/05/18 08:51; Admin Dose 10 MG; Start 05/04/18 at 09:00 Docusate Sodium (Colace) 100 mg DAILY PO Last administered on 05/05/18 08:50; Admin Dose 100 MG; Start 05/04/18 at 09:00 Furosemide (Lasix) 20 mg DAILY PO Last administered on 05/05/18 08:52; Admin Dose 20 MG; Start 05/04/18 at 09:00 Morphine Sulfate (Ms Contin (Er)) 15 mg Q12 PO Last administered on 05/05/18 08:51; Admin Dose 15 MG; Start 05/04/18 at 09:00 Oxybutynin Chloride (Ditropan Xl) 5 mg DAILY PO Last administered on 05/05/18 08:51; Admin Dose 5 MG; Start 05/04/18 at 09:00 Pantoprazole (Protonix Tab) 40 mg DAILY@0600 PO Last administered on 05/04/18 06:13; Admin Dose 40 MG; Start 05/04/18 at 06:00 Pramipexole (Mirapex) 1.5 mg TID PO Last administered on 05/04/18 20:20; Admin Dose 1.5 MG; Start 05/04/18 at 09:00; Status Hold Pramipexole (Mirapex) 1.5 mg TID PO Last administered on 05/05/18 13:41; Admin Dose 1.5 MG; Start 05/05/18 at 09:00; Stop 05/06/18 at 13:01 Magnesium Sulfate 50 ml @ 25 mls/hr ONCE ONCE IVPB Last administered on 05/05/18 14:37; Admin Dose 25 MLS/HR; Start 05/05/18 at 14:00; Stop 05/05/18 at 15:59 MELODY BROCK MD May 05, 2018 16:00
[2018-05-05] MEDS ORDERED: HALOPERIDOL 5 MG INJ IV ONE (18:00)
[2018-05-05] MEDS ORDERED: HALOPERIDOL 5 MG INJ IM ONE (18:00)
[2018-05-05 19:52] VITALS: BP 102/58; PULSE 73; RESP 20
[2018-05-05 19:57] VITALS: BP 102/58; PULSE 73; RESP 18
[2018-05-06] VITALS (7 sets, daily range): BP systolic 110–147; BP diastolic 55–66; PULSE 65–73; RESP 16–18
[2018-05-06] MEDS: PANTOPRAZOLE (EC) 40 MG TAB PO SCH (06:00)
[2018-05-06] MEDS: CITALOPRAM 20 MG TAB PO SCH (09:00)
[2018-05-06] MEDS: DOCUSATE SODIUM 100 MG CAP PO SCH (09:00)
[2018-05-06] MEDS: FUROSEMIDE 20 MG TAB PO SCH (09:00)
[2018-05-06] MEDS: morphine (ER) 15 MG TAB PO SCH (09:00)
[2018-05-06] MEDS: AMLODIPINE 5 MG TAB PO SCH (09:00)
[2018-05-06] MEDS: OXYBUTYNIN (XL) 5 MG TAB PO SCH (09:00)
[2018-05-06] MEDS: PRAMIPEXOLE 0.25 MG TAB PO SCH ×4 (09:00→22:30)
[2018-05-06] MEDS: SOD CHLORIDE 0.9% 1,000 ML IV SCH (09:19)
[2018-05-06] MEDS: FAMOTIDINE 20 MG INJ IV SCH (09:19)
[2018-05-06] MEDS ORDERED: POLYETHYLENE GLYCOL 3350 119 GM POWDER PO ONE (12:30)
--- NOTE | 2018-05-06 15:42 | PN ---
Date/Time of Note Date/Time of Note DATE: 05/06/18 TIME: 15:41 Assessment/Plan VTE Prophylaxis Risk score (from Nsg)>0 risk: 5 SCD applied (from Nsg): Yes Pharmacological prophylaxis: heparin Lines/Catheters IV Catheter Type (from Nrsg): Peripheral IV Urinary Cath still in place: Yes Reason Cath still needed: urinary retention Assessment/Plan Hospital Course 87 yo female with parkinsons disease admitted for nausea, found to have marked conspitation and hydronephrosis Constipation: - Likely 2/2 amldoipine and morphine and ditropan. Dc these meds - Laxatives Possible gastric thickening on CT; - EGD per DR Burnette Hydrnephrosis: - Probably from ditropan vs constipation vs consiptation - Renal US, now that lopez has been placed to re-evaluate Result Diagram: 05/05/18 1158 05/05/18 1912 Results 24hrs Laboratory Tests Test 05/05/18 19:12 Potassium Level 4.5 Subjective 24 Hr Interval Summary Free Text/Dictation Had BM Nausea seems resolved Exam/Review of Systems Exam Vitals Vital Signs Date Temp Pulse Resp B/P (MAP) Pulse Ox O2 O2 Flow FiO2 Time Delivery Rate 05/06/18 98.2 65 18 121/58 99 Nasal 1.5 13:00 (79) Cannula Intake and Output 05/05/18 05/05/18 05/06/18 1515:00 23:00 07:00 IntakeIntake Total 1440 ml 1700 ml 600 ml OutputOutput Total 825 ml BalanceBalance 1440 ml 875 ml 600 ml Constitutional: alert, oriented, well developed Psych: no complaints, nl mood/affect Head: normocephalic, atraumatic Eyes: nl conjunctiva, EOMI, nl lids, nl sclera, PERRL ENMT: nl external ears & nose, nl lips & teeth, nl nasal mucosa & septum Neck: supple, non-tender Respiratory: clear to auscultation, normal air movement Cardiovascular: regular rate and rhythm, nl pulses Gastrointestinal: soft, nl liver, spleen, non-tender Musculoskeletal: nl extremities to inspection, nl gait and stance Extremities: normal pulses Neurological: FIELD [employer] GROWER II-XII intact, nl mental status, nl speech, nl strength Skin: nl turgor; No rash or lesions Lymph: nl lymph nodes Results Results 24hrs Laboratory Tests Test 05/05/18 19:12 Potassium Level 4.5 Medications Medication Current Medications IV Flush (NS 3 ml) 3 ml PER PROTOCOL IV ; Start 05/03/18 at 19:30 Ondansetron HCl (Zofran Inj) 4 mg Q6H PRN IV NAUSEA/VOMITING Last administered on 05/05/18 18:13; Admin Dose 4 MG; Start 05/03/18 at 19:30 Acetaminophen (Tylenol Tab) 650 mg Q6H PRN PO .PAIN 1-3 OR TEMP Last administered on 05/04/18at 17:09; Admin Dose 650 MG; Start 05/03/18 at 19:30 Famotidine (Pepcid Iv) 20 mg DAILY IV Last administered on 05/06/18 09:19; Admin Dose 20 MG; Start 05/03/18 at 20:00 Docusate Sodium (Colace) 100 mg DAILY PO Last administered on 05/05/18 08:50; Admin Dose 100 MG; Start 05/04/18 at 09:00 Pantoprazole (Protonix Tab) 40 mg DAILY@0600 PO Last administered on 05/04/18 06:13; Admin Dose 40 MG; Start 05/04/18 at 06:00 Pramipexole (Mirapex) 1.5 mg TID PO Last administered on 05/04/18at 20:20; Admin Dose 1.5 MG; Start 05/04/18 at 09:00 ODESSA HANSON MD May 06, 2018 15:42
--- NOTE | 2018-05-06 17:14 | PREAC ---
Date/Time of Note Date/Time of Note DATE: 05/06/18 TIME: 17:12 Anesthesia Eval and Record Evaluation Time Pre-Procedure Interview DATE: 05/06/18 TIME: 17:12 Age 87 Sex female NPO: 8 hrs Preoperative diagnosis Stomach thickening Planned procedure EGD Past Medical History Past Medical History: Includes Cardio: HTN, CAD Heme: Anemia Psych: Depression Surgery & Anesthesia Issues No known issue Meds Anticoagulation: No Beta Wicho within 24 hr: No Reason Beta Wicho not given: Pt. not on B-Wicho Active Scripts Docusate Sodium* (Colace*) 100 Mg Capsule, 100 MG PO DAILY, #30 CAP Prov:PARAMJTI CUNNINGHAM MD 05/03/18 Ondansetron (Ondansetron Odt) 4 Mg Tab.rapdis, 4 MG PO Q6H PRN for NAUSEA AND/OR VOMITING, #10 TAB Prov:PARAMJIT CUNNINGHAM MD 05/03/18 Pantoprazole* (Protonix*) 40 Mg Tablet.dr, 40 MG PO DAILY, #20 TAB Prov:PARAMJIT CUNNINGHAM MD 05/03/18 Reported Medications Meclizine Hcl (Travel Sickness) 25 Mg Tab.chew, 25 MG PO Q8H, TAB.CHEW 05/03/18 Hydrocodone/Acetaminophen ([place] 5-325 Tablet) 1 Each Tablet, 1 EACH PO QID PRN for NEEDED, TAB 05/03/18 Citalopram Hydrobromide* (Citalopram Hydrobromide*) 10 Mg Tablet, 10 MG PO DAILY, #30 TAB 05/03/18 Pramipexole* (Pramipexole*) 1.5 Mg Tablet, 1.5 MG PO TID, TAB 05/03/18 Oxybutynin Chloride* (Ditropan* XL) 5 Mg Tabsr, 5 MG PO DAILY, TAB.SA 05/03/18 Morphine Sulfate* (Ms Contin*) 15 Mg Tablet.sa, 15 MG PO Q12, TAB 05/03/18 Furosemide* (Furosemide*) 20 Mg Tablet, 20 MG PO DAILY, #60 TAB 05/03/18 Clonidine Hcl* (Clonidine Hcl*) 0.1 Mg Tab, 0.1 MG PO DAILY PRN for ELEVATED BLOOD PRESSURE, TAB 05/03/18 Amlodipine Besylate* (Norvasc*) 5 Mg Tablet, 5 MG PO DAILY, TAB 05/03/18 Discontinued Reported Medications Ondansetron Hcl* (Zofran*) 4 Mg Tablet, 4 MG PO BID PRN for NAUSEA AND OR VOMITING, TAB 05/03/18 Pramipexole* (Pramipexole*) 1.5 Mg Tablet, 1.5 MG PO TID, TAB 11/24/17 Oxybutynin Chloride* (Ditropan* XL) 5 Mg Tabsr, 5 MG PO DAILY, TAB.SA 11/24/17 [id number] (Tribenzor) 40-5-25 Mg Tablet, 1 TAB PO DAILY, TAB 11/24/17 Meclizine Hcl* (Meclizine Hcl*) 25 Mg Tablet, 25 MG PO Q8H PRN for DIZZINESS, TAB 11/24/17 Dexlansoprazole (Dexilant) 60 Mg Cap., 60 MG PO DAILY, #30 CAP 11/24/17 Citalopram Hydrobromide* (Citalopram Hydrobromide*) 10 Mg Tablet, 10 MG PO DAILY, #30 TAB 11/24/17 Discontinued Scripts Cyanocobalamin* (Vitamin B12*) 100 Mcg Tab, 100 MCG PO DAILY, #30 TAB Prov:HEENA GONZALEZ V. [employer] OPERATOR 12/03/17 Ferrous Sulfate* (Ferrous Sulfate*) 325 Mg Tabec, 325 MG PO BID, #60 TAB Prov:HEENA GONZALEZ V. [employer] OPERATOR 12/03/17 Magnesium Hydroxide* (Milk Of Magnesia*) 400 Mg/5 Ml Oral.susp, 30 ML PO DAILY for constipation, #100 ML Prov:HEENA GONZALEZ V. [employer] CRANE OPERATOR 12/03/17 Hydrocodone/Acetaminophen ([place] 5-325 Tablet) 1 Each Tablet, 1 EACH PO Q6 PRN for SEVERE PAIN LEVEL 7-10, #10 TAB Prov:HEENA GONZALEZ V. [employer] CR[employer] OPERATOR 12/03/17 Lorazepam* (Lorazepam*) 1 Mg Tablet, 1 MG PO Q8H PRN for ANXIETY, #12 TAB Prov:BURTON TYLER MD 11/24/17 Current Medications IV Flush (NS 3 ml) 3 ml PER PROTOCOL IV ; Start 05/03/18 at 19:30 Ondansetron HCl (Zofran Inj) 4 mg Q6H PRN IV NAUSEA/VOMITING Last administered on 05/05/18at 18:13; Admin Dose 4 MG; Start 05/03/18 at 19:30 Acetaminophen (Tylenol Tab) 650 mg Q6H PRN PO .PAIN 1-3 OR TEMP Last administered on 05/04/18at 17:09; Admin Dose 650 MG; Start 05/03/18 at 19:30 Docusate Sodium (Colace) 100 mg DAILY PO Last administered on 05/05/18at 08:50; Admin Dose 100 MG; Start 05/04/18 at 09:00 Pramipexole (Mirapex) 1.5 mg TID PO Last administered on 05/04/18at 20:20; Admin Dose 1.5 MG; Start 05/04/18 at 09:00 Polyethylene Glycol (Miralax) 17 gm BID PO ; Start 05/06/18 at 21:00 Meds reviewed: Yes Allergies Coded Allergies: No Known Allergies (Verified Allergy, Mild, 05/03/18) Allergies Reviewed: Yes Labs/Studies Labs Reviewed: Reviewed by anesthesiologist Result Diagram: 05/05/18 1158 05/05/18 1912 Laboratory Tests 05/05/18 19:12 test: N/A Pre-procedure Exam Last vitals Vital Signs Date Temp Pulse Resp B/P (MAP) Pulse Ox O2 O2 Flow FiO2 Time Delivery Rate 05/06/18 98.2 65 18 121/58 99 Nasal 1.5 13:00 (79) Cannula Airway: Adequate mouth opening Mallampati: Mallampati I Teeth: Abnormal (Dentures removed) Lung: Normal Heart: Normal ASA Physical Status ASA physical status: 3 Emergency: None Planned Anesthetic General/MAC: MAC Planned Pain Management Parenteral pain med Pre-operative Attestations Prior to commencing anesthesia and surgery, the patient was re-evaluated, there was verification of: *The patient's identity *The results of appropriate recent lab work and preoperative vital signs *The above evaluation not changing prior to induction *Anesthetic plan, risk benefits, alternative and complications discussed with patient/family; questions answered; patient/family understands, accepts and wishes to proceed. MARISELA FERREIRA MD May 06, 2018 17:14
[2018-05-06] MEDS ORDERED: PROPOFOL 20 ML ONE (17:26)
--- NOTE | 2018-05-06 18:46 | CONS ---
DATE OF ADMISSION: 05/04/2018 DATE OF CONSULTATION: TYPE OF CONSULTATION: Gastroenterology. Dear Dr. Pritchett: Thank you for asking me to see Mrs. Woody in GI consultation. HISTORY OF PRESENT ILLNESS: As you know, patient is an 87-year-old [place] female who was admitted to the hospital because of history of vomiting which has been going on for the past couple of days; h owever, no history of vomiting blood or passing blood from the rectum. The patient is known to have history of parkinsonism. CAT scan of the abdomen showed evidence of a g astric wall thickening after this admission; hence GI consultation is requested for possible endoscop y. Other medical problems include bilateral hydronephrosis, parkinsonism, history of rectal prolapse, hy pertension, depression chronic, spinal fracture. MEDICATIONS: Currently include: 1. Tylenol. 2. Sodium chloride. 3. IV Zofran. 4. Hydrocodone bitartrate. 5. Pepcid IV. PAST SURGICAL HISTORY: Includes essentially what is already mentioned above. SOCIAL HISTORY: The patient does not smoke or drink. REVIEW OF SYSTEMS: Does not indicate if patient lost any weight. SOCIAL HISTORY: The patient is not a smoker nor a drinker. PHYSICAL EXAMINATION: GENERAL: The patient is an 87-year-old. VITAL SIGNS: Temperature 98.2, pulse is 65, respiratory rate 18, blood pressure is 121/58. HEART: Normal heart sounds. RESPIRATORY: Normal breath sounds. ABDOMEN: Showed evidence of soft abdomen with no palpable masses, no tenderness, no distention. LABORATORY WORKUP: Potassium 2.7 which went up to 4.5. Hemoglobin 9.8 and then 10.4, MCV 92.3, WBC is 12,200, platelet count 204,000. Bilirubin 0.2, AST 21, ALT 18, alkaline phosphatase 72. TSH is 1 .8. DIAGNOSTIC DATA: The CAT scan of the abdomen is essentially as mentioned above which showed evidence of gastric wall thickening and hiatal hernia, lot of fecal material noted in the colon, right upper pole renal cyst, bilateral hydronephrosis, osteopenia, cholelithiasis. CLINICAL IMPRESSION: The patient is presenting with history of persistent abdominal pain and vomitin g with gastric wall thickening on the CAT scan, rule out possible malignant process versus ulcer dise ase. Other problems essentially as mentioned above, hypertension, parkinsonism, osteopenia, cholelithiasis . PLAN: At this time, the patient is scheduled for upper endoscopy and I will keep you posted with res ulannika. Once again, doctor, thank you for this consultation. Dictated By: BILLY DUONG/NTS Conf#: [id number] DID#: [id number] CC: ODESSA HANSON MD; AUGUSTO PRITCHETT MD; BENY AUGUSTINE MD;*EndCC*
[2018-05-06] MEDS: POLYETHYLENE GLYCOL 17 GM PACKET PO SCH (20:46)
[2018-05-07 02:00] VITALS: BP 153/70; PULSE 70; RESP 18
--- NOTE | 2018-05-07 07:33 | PAC ---
Date/Time of Note Date/Time of Note DATE: 05/07/18 TIME: 07:33 Post-Anesthesia Notes Post-Anesthesia Note Last documented vital signs Vital Signs Date Temp Pulse Resp B/P (MAP) Pulse Ox O2 O2 Flow FiO2 Time Delivery Rate 05/07/18 99.1 70 18 153/70 95 Nasal 1.0 02:00 (97) Cannula Activity: WNL Respiratory function: WNL Cardiovascular function: WNL Mental status: Baseline Pain reasonably controlled: Yes Hydration appropriate: Yes Nausea/Vomiting absent: Yes MARISELA FERREIRA MD May 07, 2018 07:33
[2018-05-07 07:57] VITALS: BP 141/66; PULSE 71; RESP 20
[2018-05-07] MEDS: PRAMIPEXOLE 0.25 MG TAB PO SCH ×4 (09:00→21:00)
[2018-05-07] MEDS: DOCUSATE SODIUM 100 MG CAP PO SCH (09:11)
[2018-05-07] MEDS: POLYETHYLENE GLYCOL 17 GM PACKET PO SCH ×2 (09:11→21:00)
[2018-05-07] MEDS: ACETAMINOPHEN 325 MG TAB PO PRN ×2 (10:21→19:45)
[2018-05-07] MEDS: ONDANSETRON 4 MG INJ IV PRN (10:21)
[2018-05-07 13:08] VITALS: BP 135/65; PULSE 68; RESP 18
--- NOTE | 2018-05-07 14:48 | PN ---
Date/Time of Note Date/Time of Note DATE: 05/07/18 TIME: 14:46 Assessment/Plan VTE Prophylaxis Risk score (from Nsg)>0 risk: 4 SCD applied (from Nsg): Yes Pharmacological prophylaxis: heparin Lines/Catheters IV Catheter Type (from Nrsg): Saline Lock Urinary Cath still in place: Yes Reason Cath still needed: urinary retention Assessment/Plan Hospital Course 87 yo female with parkinsons disease admitted for nausea, found to have marked conspitation and hydronephrosis Constipation: - Likely 2/2 amlodipine and morphine and ditropan. Dc these meds - Laxatives Possible gastric thickening on CT; - EGD per DR Burnette negative for malignancy Hydrnephrosis: - Probably from ditropan vs constipation vs consiptation - Renal US shows resolution with lopez Uterine prolapse: - Family advised to seek care as outpateint from gynecology vs urology Dc home tomorrow Result Diagram: 05/05/18 1158 05/05/18 1912 Subjective 24 Hr Interval Summary Free Text/Dictation EGD yesterday, pathology was negative for malignancy or H Pylori No more nausea Family very worreid about uterine prolapse Exam/Review of Systems Exam Vitals Vital Signs Date Temp Pulse Resp B/P (MAP) Pulse Ox O2 O2 Flow FiO2 Time Delivery Rate 05/07/18 97.1 68 18 135/65 96 13:08 (88) 05/07/18 Nasal 2.0 08:00 Cannula Intake and Output 05/06/18 05/06/18 05/07/18 1515:00 23:00 07:00 IntakeIntake Total 600 ml OutputOutput Total 950 ml 1000 ml BalanceBalance -350 ml -1000 ml Constitutional: alert, oriented, well developed Psych: no complaints, nl mood/affect Head: normocephalic, atraumatic Eyes: nl conjunctiva, EOMI, nl lids, nl sclera, PERRL ENMT: nl external ears & nose, nl lips & teeth, nl nasal mucosa & septum Neck: supple, non-tender Respiratory: clear to auscultation, normal air movement Cardiovascular: regular rate and rhythm, nl pulses Gastrointestinal: soft, nl liver, spleen, non-tender Musculoskeletal: nl extremities to inspection, nl gait and stance Extremities: normal pulses Neurological: HAIR BALER II-XII intact, nl mental status, nl speech, nl strength Skin: nl turgor; No rash or lesions Lymph: nl lymph nodes Medications Medication Current Medications IV Flush (NS 3 ml) 3 ml PER PROTOCOL IV ; Start 05/03/18 at 19:30 Ondansetron HCl (Zofran Inj) 4 mg Q6H PRN IV NAUSEA/VOMITING Last administered on 05/07/18 10:21; Admin Dose 4 MG; Start 05/03/18 at 19:30 Acetaminophen (Tylenol Tab) 650 mg Q6H PRN PO .PAIN 1-3 OR TEMP Last administered on 05/07/18 10:21; Admin Dose 650 MG; Start 05/03/18 at 19:30 Docusate Sodium (Colace) 100 mg DAILY PO Last administered on 05/07/18 09:11; Admin Dose 100 MG; Start 05/04/18 at 09:00 Polyethylene Glycol (Miralax) 17 gm BID PO Last administered on 05/07/18 09:11; Admin Dose 17 GM; Start 05/06/18 at 21:00 Pramipexole (Mirapex) 1.5 mg TID PO ; Start 05/06/18 at 22:00 Pramipexole (Mirapex) 1.5 mg TID PO Last administered on 05/07/18 09:11; Admin Dose 1.5 MG; Start 05/06/18 at 22:30 ODESSA HANSON MD May 07, 2018 14:48
[2018-05-07 19:24] VITALS: BP 136/61; PULSE 74; RESP 18
[2018-05-08 01:52] VITALS: BP 151/69; PULSE 73; RESP 18
--- NOTE | 2018-05-08 06:48 | PN ---
DATE: 05/07/2018 HISTORY OF PRESENT ILLNESS: The patient has no vomiting. The patient was admitted to the hospital w ith history of vomiting. Upper endoscopy showed evidence of status post gastric resection which she said was due to gastric cancer many years ago. Endoscopy when I performed yesterday showed evidence of thickening of the gastric mucosa proximal to the anastomosis. Pathology shows evidence of mild ch ronic inflammation. No evidence of malignancy noted. No evidence of H. pylori noted. Multiple biop sies were done endoscopically which later turned out to be negative. LABORATORY WORKUP: Hemoglobin 10.4, WBC 12,200. Potassium 4.5. Liver panel is normal. CLINICAL IMPRESSION: The patient has evidence of gastritis, status post gastric surgery for cancer m any years ago. Clinically and endoscopically, there is no evidence of carcinoma noted. PLAN: I recommend continue proton pump inhibitor therapy and Carafate. Dictated By: BILLY BERGMAN MD NC/NTS Conf#: [id number] DID#: [id number] CC: BENY AUGUSTINE MD; ODESSA HANSON MD;*EndCC*
[2018-05-08 07:29] VITALS: BP 152/78; PULSE 76; RESP 18
[2018-05-08] MEDS: PRAMIPEXOLE 0.25 MG TAB PO SCH (09:00)
[2018-05-08] MEDS: POLYETHYLENE GLYCOL 17 GM PACKET PO SCH (09:00)
[2018-05-08] MEDS: DOCUSATE SODIUM 100 MG CAP PO SCH (09:33)
--- NOTE | 2018-05-08 11:00 | PDOCDIS ---
Discharge Instructions DIAGNOSIS Discharge Diagnosis Constipation Nausea CONDITION [id number] Patient Condition: [id number] Stable FOLLOW UP/APPOINTMENTS Follow-up Plan Please stop taking medicatiosn for blood pressure, pain and urine retention. Monitor your symptoms off of these medications as I believe they are causing your symptoms. Please discuss which medications are absolutely required with your primary care doctor ODESSA HANSON MD May 08, 2018 11:00
[2018-05-08 14:11] VITALS: BP 143/81; PULSE 72; RESP 17
--- NOTE | 2018-05-08 16:47 | DS ---
Date/Time of Note Date/Time of Note DATE: 05/08/18 TIME: 16:46 Discharge Summary Admission/Discharge Info Admit Date/Time May 04, 2018 at 15:32 Discharge Date/Time May 08, 2018 at 15:50 Discharge Diagnosis Constipation Nausea Patient Condition: Stable Hospital Course 87 yo female with parkinsons disease admitted for nausea, found to have marked conspitation and hydronephrosis Marked constiptation was deemend 2/2 amlodipnine and morphine and ditropan. These medications were held and constipation resolved Hydronephrosis also resolved with resolution of constipation and cessation of these medications The patient underwent EGD which was negative for malignancy or H Pylori I suggested she stop these offending medications at discharge and follow up promplty with her PMD. Home Meds Active Scripts Docusate Sodium* (Colace*) 100 Mg Capsule, 100 MG PO DAILY, #30 CAP Prov:PARAMJIT CUNNINGHAM MD 05/03/18 Pantoprazole* (Protonix*) 40 Mg Tablet.dr, 40 MG PO DAILY, #20 TAB Prov:PARAMJIT CUNNINGHAM MD 05/03/18 Discontinued Reported Medications Meclizine Hcl (Travel Sickness) 25 Mg Tab.chew, 25 MG PO Q8H, TAB.CHEW 05/03/18 Hydrocodone/Acetaminophen ([place] 5-325 Tablet) 1 Each Tablet, 1 EACH PO QID PRN for NEEDED, TAB 05/03/18 Citalopram Hydrobromide* (Citalopram Hydrobromide*) 10 Mg Tablet, 10 MG PO DAILY, #30 TAB 05/03/18 Pramipexole* (Pramipexole*) 1.5 Mg Tablet, 1.5 MG PO TID, TAB 05/03/18 Oxybutynin Chloride* (Ditropan* XL) 5 Mg Tabsr, 5 MG PO DAILY, TAB.SA 05/03/18 Morphine Sulfate* (Ms Contin*) 15 Mg Tablet.sa, 15 MG PO Q12, TAB 05/03/18 Furosemide* (Furosemide*) 20 Mg Tablet, 20 MG PO DAILY, #60 TAB 05/03/18 Clonidine Hcl* (Clonidine Hcl*) 0.1 Mg Tab, 0.1 MG PO DAILY PRN for ELEVATED BLOOD PRESSURE, TAB 05/03/18 Amlodipine Besylate* (Norvasc*) 5 Mg Tablet, 5 MG PO DAILY, TAB 05/03/18 Ondansetron Hcl* (Zofran*) 4 Mg Tablet, 4 MG PO BID PRN for NAUSEA AND OR VOMITING, TAB 05/03/18 Pramipexole* (Pramipexole*) 1.5 Mg Tablet, 1.5 MG PO TID, TAB 11/24/17 Oxybutynin Chloride* (Ditropan* XL) 5 Mg Tabsr, 5 MG PO DAILY, TAB.SA 11/24/17 Exvyjmckrg-Yaqsekvgia-ACFL (Tribenzor) 40-5-25 Mg Tablet, 1 TAB PO DAILY, TAB 11/24/17 Meclizine Hcl* (Meclizine Hcl*) 25 Mg Tablet, 25 MG PO Q8H PRN for DIZZINESS, TAB 11/24/17 Dexlansoprazole (Dexilant) 60 Mg Cap.mp, 60 MG PO DAILY, #30 CAP 11/24/17 Citalopram Hydrobromide* (Citalopram Hydrobromide*) 10 Mg Tablet, 10 MG PO DAILY, #30 TAB 11/24/17 Discontinued Scripts Ondansetron (Ondansetron Odt) 4 Mg Tab.rapdis, 4 MG PO Q6H PRN for NAUSEA AND/OR VOMITING, #10 TAB Prov:PARAMJIT CUNNINGHAM MD 05/03/18 Cyanocobalamin* (Vitamin B12*) 100 Mcg Tab, 100 MCG PO DAILY, #30 TAB Prov:GONZALEZ,HEENA V. WATER QUALITY SPECIALIST 12/03/17 Ferrous Sulfate* (Ferrous Sulfate*) 325 Mg Tabec, 325 MG PO BID, #60 TAB Prov:GONZALEZEBA V. WATER QUALITY SPECIALIST 12/03/17 Magnesium Hydroxide* (Milk Of Magnesia*) 400 Mg/5 Ml Oral.susp, 30 ML PO DAILY for constipation, #100 ML Prov:GONZALEZEBA V. WATER QUALITY SPECIALIST 12/03/17 Hydrocodone/Acetaminophen ([place] 5-325 Tablet) 1 Each Tablet, 1 EACH PO Q6 PRN for SEVERE PAIN LEVEL 7-10, #10 TAB Prov:GONZALEZKANUHEENA V. WATER QUALITY SPECIALIST 12/03/17 Lorazepam* (Lorazepam*) 1 Mg Tablet, 1 MG PO Q8H PRN for ANXIETY, #12 TAB Prov:BURTON TYLER MD 11/24/17 Follow-up Plan Please stop taking medicatiosn for blood pressure, pain and urine retention. Monitor your symptoms off of these medications as I believe they are causing your symptoms. Please discuss which medications are absolutely required with your primary care doctor Primary Care Provider Not On Staff Doctor ODESSA HANSON MD May 08, 2018 16:47
== END 2018-05-08 15:50 | disposition home or self-care (01) | DRG 392 ==
LOC: E/R 16:38 → 2NE 18:47 → OBSVTOIN 05-04 15:32
PROVIDERS: ADMIT Internal Medicine; ATTEND Internal Medicine
PROC: 0DB68ZX Excision of Stomach, Via Natural or Artificial Opening Endoscopic, Diagnostic (ICD-10-PCS; 2018-05-06)
PROC: 0DB58ZX Excision of Esophagus, Via Natural or Artificial Opening Endoscopic, Diagnostic (ICD-10-PCS; principal; 2018-05-06 17:30)
DX: R11.2 Nausea with vomiting, unspecified (principal); K56.7 Ileus, unspecified; N13.2 Hydronephrosis with renal and ureteral calculous obstruction; E44.0 Moderate protein-calorie malnutrition; Z68.1 Body mass index [BMI] 19.9 or less, adult; K59.00 Constipation, unspecified; K52.9 Noninfective gastroenteritis and colitis, unspecified; Z66 Do not resuscitate; G20 Parkinson's disease; Z85.028 Personal history of other malignant neoplasm of stomach; I10 Essential (primary) hypertension; K44.9 Diaphragmatic hernia without obstruction or gangrene
CPT/HCPCS: 36415; 74176; 76775; 80048; 80053; 83036; 83690; 83735; 84100; 84132; 84443; 84484; 85025; 88305; 88312; 88313; 93005; 96374; 96375; 96376; 97162; 97530; G0378; J1630; J2060; J2270; J2405; J2765; J3475; J7030

== ENCOUNTER 2018-07-29 22:35 | Inpatient (IN) | payer MEDICARE, OTHER ==
[~2018-07-29] VITALS: Ht 154.9 cm; Wt 45.5 kg
[~2018-07-29 22:35] MED LIST changes: -AMLO5TAB4 PO; -CITA10TA5 PO; -CLON-379 PO; -CYAN100T PO; -DEXL60CA2 PO; -FER325 PO; -FURO20TA3 PO; -HYDR-4011 PO; -LORA1TAB PO; -MAGN400O19 PO; -MECL-77 PO; -MORP15TA92 PO; -OLME1TAB33 PO; -ONDA4TAB14 PO; -ONDA4TAB8 PO; -OXYB5TAB22 PO; -PRAM1.5T PO
[2018-07-29 22:42] VITALS: Ht 154.9 cm; Wt 45.5 kg
[2018-07-29] MEDS ORDERED: CEFEPIME 2GM/50 ML (PMX) 50 ML IVPB STA (22:57)
[2018-07-29] MEDS ORDERED: SODIUM CHLORIDE 0.9% 1L BAG IV* STA (22:57)
[2018-07-29] MEDS ORDERED: VANCOMYCIN 1 GM (PMX) 250 ML IVPB ONE (23:00)
[2018-07-30] MEDS ORDERED: ONDANSETRON 4 MG INJ IV PRN ×2 (01:30→02:30)
[2018-07-30] MEDS ORDERED: ACETAMINOPHEN 325 MG TAB PO PRN (01:30)
[2018-07-30] MEDS ORDERED: SOD CHLORIDE 0.9% 1,000 ML IV SCH (02:05)
--- NOTE | 2018-07-30 02:16 | ERD ---
ER Documentation Chief Complaint Chief Complaint [id number],fever X4 days, on antibiotic for UTI,c/o pelvic pain HPI This 87-year-old female brought in for fever for the last 4 days. According to family she is been generally weak over the past 4 days recently diagnosed with urinary tract infection. On antibiotics. No fevers no chills. No other current complaints. ROS All systems reviewed and are negative except as per history of present illness. Medications Home Meds Active Scripts Docusate Sodium* (Colace*) 100 Mg Capsule, 100 MG PO DAILY, #30 CAP Prov:PARAMJIT CUNNINGHAM MD 05/03/18 Pantoprazole* (Protonix*) 40 Mg Tablet.dr, 40 MG PO DAILY, #20 TAB Prov:PARAMJIT CUNNINGHAM MD 05/03/18 Allergies Allergies: Coded Allergies: No Known Allergies (Verified Allergy, Mild, 05/03/18) PMhx/Soc History of Surgery: Yes (back sx,shoulder sx,hernia repair, stomach sx,cataract sx.) Anesthesia Reaction: No Hx Neurological Disorder: Yes (parkinsons disease) Hx Respiratory Disorders: Yes (PNA) Hx Cardiac Disorders: Yes (htn, CAD) Hx Psychiatric Problems: No Hx Miscellaneous Medical Probl: Yes (See technical record, prolapsed uterus) Hx Alcohol Use: No Hx Substance Use: No Hx Tobacco Use: No Smoking Status: Never smoker Physical Exam Vitals Vital Signs Date Temp Pulse Resp B/P (MAP) Pulse Ox O2 O2 Flow FiO2 Time Delivery Rate 07/30/18 98.2 54 21 135/78 99 01:27 (97) 07/29/18 98.2 75 21 129/88 99 22:42 (102) Physical Exam Const: No acute distress Head: Atraumatic Eyes: Normal Conjunctiva ENT: Normal External Ears, Nose and Mouth. Neck: Full range of motion. No meningismus. Resp: Clear to auscultation bilaterally Cardio: Regular rate and rhythm, no murmurs Abd: Soft, non tender, non distended. Normal bowel sounds Skin: No petechiae or rashes Back: No midline or flank tenderness Ext: No cyanosis, or edema Neur: Awake and alert Psych: Normal Mood and Affect Result Diagram: 07/29/18 5851 07/29/182303 Results 24 hrs Laboratory Tests Test 07/29/18 23:04 07/29/18 23:11 07/30/18 01:03 White Blood Count 5.0 10^3/ul Red Blood Count 3.29 10^6/ul Hemoglobin 9.5 g/dl Hematocrit 29.8 % Mean Corpuscular Volume 90.6 fl Mean Corpuscular Hemoglobin 28.9 pg Mean Corpuscular 31.9 g/dl Hemoglobin Concent Red Cell Distribution Width 13.8 % Platelet Count 264 10^3/UL Mean Platelet Volume 9.9 fl Immature Granulocytes % 0.200 % Neutrophils % 48.1 % Lymphocytes % 38.6 % Monocytes % 11.7 % Eosinophils % 1.0 % Basophils % 0.4 % Nucleated Red Blood Cells % 0.0 /100WBC Immature Granulocytes # 0.010 10^3/ul Neutrophils # 2.4 10^3/ul Lymphocytes # 1.9 10^3/ul Monocytes # 0.6 10^3/ul Eosinophils # 0.1 10^3/ul Basophils # 0.0 10^3/ul Nucleated Red Blood Cells # 0.0 10^3/ul Prothrombin Time 12.7 Sec Prothrombin Time Ratio 1.0 INR International 0.94 Normalized Ratio Activated Partial Thromboplast 30.0 Sec Time Urine Color YELLOW Urine Clarity CLEAR Urine pH 7.0 Urine Specific [place] 1.011 Urine Ketones NEGATIVE mg/dL Urine Nitrite NEGATIVE mg/dL Urine Bilirubin NEGATIVE mg/dL Urine Urobilinogen NEGATIVE mg/dL Urine Leukocyte Esterase NEGATIVE Flores/ul Urine Microscopic RBC 3 /HPF Urine Microscopic WBC 3 /HPF Urine Hemoglobin 1+ mg/dL Urine Glucose NEGATIVE mg/dL Urine Total Protein NEGATIVE mg/dl Sodium Level 138 mmol/L Potassium Level 4.1 mmol/L Chloride Level 105 mmol/L Carbon Dioxide Level 25 mmol/L Anion Gap 8 Blood Urea Nitrogen 24 mg/dl Creatinine 0.87 mg/dl Est Glomerular Filtrat mL/min Rate mL/min Glucose Level 124 mg/dl Calcium Level 8.9 mg/dl Total Bilirubin 0.4 mg/dl Direct Bilirubin 0.00 mg/dl Indirect Bilirubin 0.4 mg/dl Aspartate Amino Transf (AST/SGOT) 26 IU/L Alanine 11 IU/L Aminotransferase (ALT/SGPT) Alkaline Phosphatase 75 IU/L Troponin I 0.017 ng/ml Total Protein 7.3 g/dl Albumin 3.6 g/dl Globulin 3.70 g/dl Albumin/Globulin Ratio 0.97 POC Venous Lactate 1.3 mmol/L Lactic Acid Level 1.4 mmol/L Current Medications Medications Dose Sig/Livan Start Time Status Last (Trade) Ordered Route PRN Stop Time Admin Dose Reason Admin Sodium 1,360 ml BOLUS OVER 2 07/29/18 DC 07/29/18 Chloride HOURS STAT 22:57 23:30 (NS) IV* 07/29/18 22:59 Cefepime HCl 50 ml @ ONCE STAT 07/29/18 DC 07/29/18 100 mls/hr IVPB 22:57 23:30 07/29/18 23:26 Vancomycin 250 ml @ ONCE ONCE 07/29/18 DC 07/30/18 HCl 125 mls/hr IVPB 23:00 00:36 07/30/18 00:59 Ondansetron 4 mg BRIDGE ORDER 07/30/18 HCl (Zofran PRN IV 01:30 Inj) NAUSEA/VOMITI 07/31/18 01:29 NG 650 mg ER BRIDGE 07/30/18 Acetaminophen PRN PO 01:30 (Tylenol .MILD PAIN 07/31/18 01:29 Tab) 1-3 OR TEMP Procedures/MDM EKG: Rate/Rhythm: [Normal Sinus Rhythm] QRS, ST, T-waves: [No changes consistent w/ acute ischemia] Impression: [No evidence of ischemia or arrhythmia] Chest X-ray 1V Interpreted by me: Soft Tissue: No acute abnormalities Bones: No acute abnormalities Mediastinum/Cardiac Silhouette/Lungs: [No acute abnormalities] Medical decision makin-year-old with generalized weakness and likely steroid pyuria and will need further evaluation and management. Hospitalist made aware. Departure Diagnosis: Primary Impression: Fever Fever type: unspecified Qualified Codes: R50.9 - Fever, unspecified Condition: Serious BENY TIMMONS Jul 30, 2018 02:16
[2018-07-30] MEDS ORDERED: DOCUSATE SODIUM 100 MG CAP PO PRN (02:30)
[2018-07-30] MEDS ORDERED: NACL 0.9% 3 ML SYG IV SCH (02:30)
[2018-07-30] MEDS ORDERED: BISACODYL (EC) 5 MG TAB PO PRN (02:30)
[2018-07-30] MEDS: POLYETHYLENE GLYCOL 17 GM PACKET PO SCH ×2 (03:27→10:00)
[2018-07-30] MEDS: DOCUSATE SODIUM 100 MG CAP PO SCH ×3 (03:27→21:30)
[2018-07-30 03:43] VITALS: BP 164/80; PULSE 55; RESP 16
[2018-07-30] MEDS ORDERED: hydrALAzine 20 MG INJ IV PRN (04:30)
[2018-07-30] MEDS ORDERED: POLY119P3 PO (04:32)
[2018-07-30] MEDS ORDERED: PHEN-716 (04:32)
[2018-07-30] MEDS ORDERED: traMADol 50 MG TAB PO PRN (05:00)
--- NOTE | 2018-07-30 05:06 | HP ---
Date/Time of Note Date/Time of Note DATE: 07/30/18 TIME: 05:05 Assessment/Plan VTE Prophylaxis SCD applied (from Nsg): Yes Pharmacological prophylaxis: NA/contraindicated Pharm contraindication: low risk/ambulating Lines/Catheters IV Catheter Type (from Nrsg): Saline Lock Urinary Cath still in place: Yes Reason Cath still needed: urinary retention Assessment/Plan Hospital Course 1. Acute dehydration with weakness: IV fluid hydration with normal saline. Encourage diet, PT evaluation. 2. Recent urinary tract infection: Patient was recently treated with a course of Macrobid. Current urinalysis is negative for any nitrites or leukoesterase. Will repeat a UA, urine culture. She is currently afebrile. She did receive antibiotics in the emergency department. I will hold off on any further antibiotics at the current time. Francois catheter is in place and there is no pus or cloudy urine on exam. 3. Bilateral hydronephrosis: This was also present on previous admission. This may be chronic in nature. Will consult urology. dr. law. She currently has a Francois in place. 4. Constipation: Patient had a similar presentation during previous admission. likely medication side effect. She was at that time discontinued amlodipine Ditropan and MS Contin, she does appear to be however on these medications at home except for MS Contin. She was started on Piercy. At the current time I will hold these meds I will start her on a bowel regimen. Hold ditropan for now. 5. Parkinson's disease: Supportive care and continue pramipexole 5. History of rectal prolapse: Patient was seen by GI during previous admission however there is no mention of the rectal prolapse. Defer to inpatient team regarding this, likely benefit from outpatient follow-up. 6. Hypertension: BP within goal. Continue home med 7. Depression: Continue citalopram 8. Chronic spinal fracture: Pain meds as needed 9. DVT GI prophylaxis: SCDs, Protonix 10. Placement: I did speak with the family and while they do state that they are able to take care of her at home as they have been for a few years, if the patient's condition does not seem to improve they will consider placement. T evaluation. CODE STATUS: DNR/DNI Result Diagram: 07/30/18 0330 07/30/18 0330 Results 24hrs Laboratory Tests Test 07/29/18 23:04 07/29/18 23:11 07/30/18 01:03 07/30/18 03:27 White Blood Count 5.0 # Red Blood Count 3.29 L Hemoglobin 9.5 L Hematocrit 29.8 L Mean Corpuscular 90.6 Volume Mean Corpuscular 28.9 L Hemoglobin Mean Corpuscular 31.9 L Hemoglobin Concent Red Cell 13.8 Distribution Width Platelet Count 264 # Mean Platelet Volume 9.9 Immature 0.200 Granulocytes % Neutrophils % 48.1 Lymphocytes % 38.6 Monocytes % 11.7 H Eosinophils % 1.0 Basophils % 0.4 Nucleated Red Blood 0.0 Cells % Immature 0.010 Granulocytes # Neutrophils # 2.4 Lymphocytes # 1.9 Monocytes # 0.6 Eosinophils # 0.1 Basophils # 0.0 Nucleated Red Blood 0.0 Cells # Prothrombin Time 12.7 Prothrombin Time 1.0 Ratio INR International 0.94 Normalized Ratio Activated 30.0 Partial Thromboplast Time Urine Color YELLOW Urine Clarity CLEAR Urine pH 7.0 Urine Specific 1.011 [place] Urine Ketones NEGATIVE Urine Nitrite NEGATIVE Urine Bilirubin NEGATIVE Urine Urobilinogen NEGATIVE Urine Leukocyte NEGATIVE Esterase Urine Microscopic 3 RBC Urine Microscopic 3 WBC Urine Hemoglobin 1+ H Urine Glucose NEGATIVE Urine Total Protein NEGATIVE Sodium Level 138 Potassium Level 4.1 Chloride Level 105 Carbon Dioxide Level 25 Anion Gap 8 Blood Urea Nitrogen 24 H Creatinine 0.87 Est Glomerular Filtrat Rate mL/min Glucose Level 124 Calcium Level 8.9 Total Bilirubin 0.4 Direct Bilirubin 0.00 Indirect Bilirubin 0.4 Aspartate Amino 26 Transf (AST/SGOT) Alanine 11 L Aminotransferase (AL T/SGPT) Alkaline Phosphatase 75 Troponin I 0.017 Total Protein 7.3 Albumin 3.6 Globulin 3.70 H Albumin/Globulin 0.97 Ratio POC Venous Lactate 1.3 Lactic Acid Level 1.4 1.0 Test 07/30/18 03:30 White Blood Count 4.1 L Red Blood Count 3.12 L Hemoglobin 8.7 L Hematocrit 28.1 L Mean Corpuscular 90.1 Volume Mean Corpuscular 27.9 L Hemoglobin Mean Corpuscular 31.0 L Hemoglobin Concent Red Cell 14.0 Distribution Width Platelet Count 220 Mean Platelet Volume 9.6 Immature 0.200 Granulocytes % Neutrophils % 41.9 Lymphocytes % 43.9 Monocytes % 11.5 H Eosinophils % 2.0 Basophils % 0.5 Nucleated Red Blood 0.0 Cells % Immature 0.010 Granulocytes # Neutrophils # 1.7 Lymphocytes # 1.8 Monocytes # 0.5 Eosinophils # 0.1 Basophils # 0.0 Nucleated Red Blood 0.0 Cells # Sodium Level 141 Potassium Level 3.5 Chloride Level 110 Carbon Dioxide Level 24 Anion Gap 7 Blood Urea Nitrogen 21 H Creatinine 0.78 Est Glomerular Filtrat Rate mL/min Glucose Level 105 Calcium Level 8.1 L Total Bilirubin 0.2 Direct Bilirubin 0.00 Indirect Bilirubin 0.2 Aspartate Amino 16 Transf (AST/SGOT) Alanine 14 Aminotransferase (AL T/SGPT) Alkaline Phosphatase 70 Total Protein 6.1 # Albumin 2.9 L Globulin 3.20 Albumin/Globulin 0.90 Ratio HPI/ROS Admit Date/Time Admit Date/Time Jul 30, 2018 at 01:18 Hx of Present Illness Chief complaint: Fever, weakness This is a 87-year-old female who presented to the with family with symptoms complaining of fevers for the last 3 to 4 days. Patient was recently diagnosed with a urinary tract infection and was put on Macrobid. I did speak with the grandson over the phone who was present with the patient's father as well and they stated that the patient has been having fevers and had been weak. She in the past was admitted and treated for urinary tract infection and constipation. Patient had a Francois placed in the emergency department which showed yellow urine with no pus or cloudiness. I did do a verbal confirmation with the grandson regarding the patient's home medications he stated that the patient is currently not taking MS Contin she is currently not on Lasix. She is still on amlodipine and clonidine as needed. She is currently on Piercy for pain as well. She is on Protonix. She is not taking Tribenzor. She is on citalopram and pramipexole and Ditropan XL. Based on the previous discharge recommendations she was advised to stop taking amlodipine, Ditropan and morphine secondary to her constipation. Patient does report that she does feel weak, she was able to walk with her walker over the last couple of days but yesterday she was unable to. The grandson also confirmed that the son has documentation for the patient in regards to her CODE STATUS and wishes the patient to be a DNR/DNI. Allergies: NKDA Medications: See ARINA ROSARIO Const: As per HPI Eyes : No pain discharge or redness or change in visual acuity ENT: No pain, sore throat, congestion, congestion, dysphagia or discharge Respiratory: No shortness of breath, cough, sputum, wheezing, or pleuritic pain Cardiovascular: No chest pain, palpitation, PND, or edema GI : no change in appetite, abdominal pain, nausea, vomiting, diarrhea, constipation, or change in the color his stool Genitourinary: No dysuria, hematuria, flank pain , discharge or CVA tenderness Musculoskeletal: As per HPI Skin: No rash, bruising or hives Neuro: No headache, dizziness, syncope, seizure, focal weakness Endocrine: No polyuria, polydipsia, temperature intolerance Psych: No hallucination, depression, anxiety or suicidal ideation PMH/Family/Social Past Medical History Parkinson's disease, CAD, hypertension, gastric cancer? 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 Medications Current Medications Ondansetron HCl (Zofran Inj) 4 mg BRIDGE ORDER PRN IV NAUSEA/VOMITING; Start 07/30/18 at 01:30; Stop 07/31/18 at 01:29 Acetaminophen (Tylenol Tab) 650 mg ER BRIDGE PRN PO .MILD PAIN 1-3 OR TEMP; Start 07/30/18 at 01:30; Stop 07/31/18 at 01:29 Sodium Chloride 1,000 ml @ 75 mls/hr [id number] IV Last administered on 07/30/18at 03:25; Admin Dose 75 MLS/HR; Start 07/30/18 at 02:05; Stop 07/30/18 at 15:24 IV Flush (NS 3 ml) 3 ml PER PROTOCOL IV ; Start 07/30/18 at 02:30 Ondansetron HCl (Zofran Inj) 4 mg Q6H PRN IV NAUSEA/VOMITING; Start 07/30/18 at 02:30 Acetaminophen (Tylenol Tab) 650 mg Q6H PRN PO .PAIN 1-3 OR TEMP; Start 07/30/18 at 02:30 Docusate Sodium (Colace) 100 mg Q12H PRN PO .CONSTIPATION; Start 07/30/18 at 02:30 Bisacodyl (Dulcolax) 5 mg DAILY PRN PO .CONSTIPATION; Start 07/30/18 at 02:30 Docusate Sodium (Colace) 100 mg BID PO Last administered on 07/30/18at 03:27; Admin Dose 100 MG; Start 07/30/18 at 02:30 Polyethylene Glycol (Miralax) 17 gm DAILY PO Last administered on 07/30/18at 03:27; Admin Dose 17 GM; Start 07/30/18 at 02:30 Hydralazine HCl (Apresoline) 10 mg Q6H PRN IV ELEVATED SYSTOLIC BP; Start 07/30/18 at 04:30 Tramadol HCl (Ultram) 50 mg Q6H PRN PO MODERATE PAIN LEVEL 4-6; Start 07/30/18 at 05:00 Coded Allergies: No Known Allergies (Unverified Allergy, Mild, 07/30/18) Past Surgical History status post gastric surgery for cancer many years ago, recent endoscopy in April does not show any signs of cancer. Past Surgical Hx: other Family History Significant Family History: no pertinent family hx, other Social History Alcohol Use: none Smoking Status: Never smoker Drug Use: none Exam/Review of Systems Vital Signs Vitals Vital Signs Date Temp Pulse Resp B/P (MAP) Pulse Ox O2 O2 Flow FiO2 Time Delivery Rate 07/30/18 97.7 55 16 164/80 95 03:43 (108) 07/30/18 Room Air 02: Intake and Output 07/29/18 07/29/18 07/30/18 1515:00 23:00 07:00 IntakeIntake Total 1410 ml BalanceBalance 1410 ml Exam Exam General: Patient is a pleasant female currently lying in bed in no acute distress HEENT: Atraumatic, normocephalic. The pupils are equal, round and reactive. Extraocular motor are intact, mucous membranes dry Neck: Supple with full range of motion. No rigidity or meningismus Chest: Nontender Lungs: Clear to auscultation bilaterally no crackles rales or wheezing Heart: Normal S1-S2, Regular rhythm and rate. No murmur, S3, or S4 Abdomen:, Mild tenderness palpation over the suprapubic area, no rebound or guarding, normal bowel sounds Extremities: Normal to inspection, no edema no cyanosis Neurologic: Normal mental status, alert and oriented x3,, speech normal, cranial nerves II through XII are intact, motor and sensory intact ,gait not assessed se condary to weakness. Additional Comments PROCEDURE: CT Abdomen and Pelvis Without Intravenous Contrast CLINICAL INDICATION: TECHNIQUE: Axial computed tomography images of the abdomen and pelvis without intravenous contrast. Sagittal and coronal reformatted images were created and reviewed. CTDIvol (mGy) = 4.18; total DLP (mGy-cm) = 221.88. This CT exam was performed using one or more of the following dose reduction techniques: automated exposure control, adjustment of the mA and/or kV according to patient size, and/or use of iterative reconstruction technique. DICOM images are available. COMPARISON: 05/22/2018 FINDINGS: LUNG BASES: Unremarkable. No mass. No consolidation. HEART: Cardiomegaly is present. MEDIASTINUM: Moderate sized hiatal hernia. ABDOMEN: LIVER: The liver demonstrates decreased attenuation, consistent with hepatic steatosis. GALLBLADDER AND BILE DUCTS: Calcified gallstones in the gallbladder. No gallbladder wall thickening. No pericholecystic fluid. No biliary dilatation. PANCREAS: Fatty atrophy of the pancreas noted. No acute pancreatic abnormality. SPLEEN: Unremarkable. No splenomegaly. ADRENALS: Unremarkable. No mass. KIDNEYS AND URETERS: Mild bilateral hydronephrosis. The ureters are mildly dilated. No obstructing calculi seen on either side. Changes may be secondary to elevated urinary tract pressures from chronic bladder outlet obstruction. 5.5 cm cyst upper pole right kidney. STOMACH AND BOWEL: Excessive retained stool throughout the colon, consistent with constipation. Rectal prolapse noted, unchanged. No acute gastric abnormality. No obstruction. No mucosal thickening. PELVIS: APPENDIX: No findings to suggest acute appendicitis. BLADDER: There is a Francois catheter within the urinary bladder. No stones. REPRODUCTIVE: Unremarkable as visualized. ABDOMEN and PELVIS: INTRAPERITONEAL SPACE: Unremarkable. No free air. No significant fluid collection. BONES/JOINTS: Scoliosis of the lumbar spine. Advanced degenerative change. Multiple old, treated compression fractures of the spine. No dislocation. SOFT TISSUES: Unremarkable. VASCULATURE: There is The abdominal aorta is atherosclerotic. No aneurysm. LYMPH NODES: Unremarkable. No enlarged lymph nodes. IMPRESSION: 1. Excessive retained stool throughout the colon, consistent with constipation. 2. Moderate sized hiatal hernia. 3. Mild bilateral hydronephrosis. The ureters are mildly dilated. No obstructing calculi seen on either side. Changes may be secondary to elevated urinary tract pressures from chronic bladder outlet obstruction. This is unchanged from the previous study. 4. The liver demonstrates decreased attenuation, consistent with hepatic steat osis. 5. Rectal prolapse noted, unchanged. 6. There is no significant interval change from the previous study of 05/22/2018. RPTAT: [facility] Dimas Sampson Physician First Helper Date Time Electronically viewed and signed by Dimas Sampson Physician First Helper on 07/30/2018 00:30 RmC/ CC: BENY TIMMONS [phone] MANUEL ESPINOSA Jul 30, 2018 05:06
[2018-07-30 08:00] VITALS: BP 159/77; PULSE 66; RESP 20
[2018-07-30] MEDS: ACETAMINOPHEN 325 MG TAB PO PRN ×2 (10:03→21:30)
--- NOTE | 2018-07-30 14:11 | PN ---
Date/Time of Note Date/Time of Note DATE: 07/30/18 TIME: 14:11 Assessment/Plan VTE Prophylaxis Risk score (from Ns)>0 risk: 6 SCD applied (from Ns): Yes Lines/Catheters IV Catheter Type (from Nrs): Peripheral IV Urinary Cath still in place: Yes Assessment/Plan Result Diagram: 07/30/18 0330 07/30/18 0330 Results 24hrs Laboratory Tests Test 07/29/18 23:04 07/29/18 23:11 07/30/18 01:03 07/30/18 03:27 White Blood Count 5.0 # Red Blood Count 3.29 L Hemoglobin 9.5 L Hematocrit 29.8 L Mean Corpuscular 90.6 Volume Mean Corpuscular 28.9 L Hemoglobin Mean Corpuscular 31.9 L Hemoglobin Concent Red Cell 13.8 Distribution Width Platelet Count 264 # Mean Platelet Volume 9.9 Immature 0.200 Granulocytes % Neutrophils % 48.1 Lymphocytes % 38.6 Monocytes % 11.7 H Eosinophils % 1.0 Basophils % 0.4 Nucleated Red Blood 0.0 Cells % Immature 0.010 Granulocytes # Neutrophils # 2.4 Lymphocytes # 1.9 Monocytes # 0.6 Eosinophils # 0.1 Basophils # 0.0 Nucleated Red Blood 0.0 Cells # Prothrombin Time 12.7 Prothrombin Time 1.0 Ratio INR International 0.94 Normalized Ratio Activated 30.0 Partial Thromboplast Time Urine Color YELLOW Urine Clarity CLEAR Urine pH 7.0 Urine Specific 1.011 [place] Urine Ketones NEGATIVE Urine Nitrite NEGATIVE Urine Bilirubin NEGATIVE Urine Urobilinogen NEGATIVE Urine Leukocyte NEGATIVE Esterase Urine Microscopic 3 RBC Urine Microscopic 3 WBC Urine Hemoglobin 1+ H Urine Glucose NEGATIVE Urine Total Protein NEGATIVE Sodium Level 138 Potassium Level 4.1 Chloride Level 105 Carbon Dioxide Level 25 Anion Gap 8 Blood Urea Nitrogen 24 H Creatinine 0.87 Est Glomerular Filtrat Rate mL/min Glucose Level 124 Calcium Level 8.9 Total Bilirubin 0.4 Direct Bilirubin 0.00 Indirect Bilirubin 0.4 Aspartate Amino 26 Transf (AST/SGOT) Alanine 11 L Aminotransferase (AL T/SGPT) Alkaline Phosphatase 75 Troponin I 0.017 Total Protein 7.3 Albumin 3.6 Globulin 3.70 H Albumin/Globulin 0.97 Ratio POC Venous Lactate 1.3 Lactic Acid Level 1.4 1.0 Test 07/30/18 03:30 07/30/18 10:00 White Blood Count 4.1 L Red Blood Count 3.12 L Hemoglobin 8.7 L Hematocrit 28.1 L Mean Corpuscular 90.1 Volume Mean Corpuscular 27.9 L Hemoglobin Mean Corpuscular 31.0 L Hemoglobin Concent Red Cell 14.0 Distribution Width Platelet Count 220 Mean Platelet Volume 9.6 Immature 0.200 Granulocytes % Neutrophils % 41.9 Lymphocytes % 43.9 Monocytes % 11.5 H Eosinophils % 2.0 Basophils % 0.5 Nucleated Red Blood 0.0 Cells % Immature 0.010 Granulocytes # Neutrophils # 1.7 Lymphocytes # 1.8 Monocytes # 0.5 Eosinophils # 0.1 Basophils # 0.0 Nucleated Red Blood 0.0 Cells # Sodium Level 141 Potassium Level 3.5 Chloride Level 110 Carbon Dioxide Level 24 Anion Gap 7 Blood Urea Nitrogen 21 H Creatinine 0.78 Est Glomerular Filtrat Rate mL/min Glucose Level 105 Calcium Level 8.1 L Total Bilirubin 0.2 Direct Bilirubin 0.00 Indirect Bilirubin 0.2 Aspartate Amino 16 Transf (AST/SGOT) Alanine 14 Aminotransferase (AL T/SGPT) Alkaline Phosphatase 70 Total Protein 6.1 # Albumin 2.9 L Globulin 3.20 Albumin/Globulin 0.90 Ratio Urine Color STRAW Urine Clarity CLEAR Urine pH 7.0 Urine Specific 1.008 [place] Urine Ketones NEGATIVE Urine Nitrite NEGATIVE Urine Bilirubin NEGATIVE Urine Urobilinogen NEGATIVE Urine Leukocyte 1+ H Esterase Urine Microscopic 14 H RBC Urine Microscopic 17 H WBC Urine Hemoglobin 1+ H Urine Glucose NEGATIVE Urine Total Protein NEGATIVE Exam/Review of Systems Exam Vitals Vital Signs Date Temp Pulse Resp B/P (MAP) Pulse Ox O2 O2 Flow FiO2 Time Delivery Rate 07/30/18 97.7 66 20 159/77 98 08:00 (104) 07/30/18 Room Air 02:19 Intake and Output 07/29/18 07/29/18 07/30/18 1515:00 23:00 07:00 IntakeIntake Total 1410 ml OutputOutput Total 400 ml BalanceBalance 1010 ml Results Results 24hrs Laboratory Tests Test 07/29/18 23:04 07/29/18 23:11 07/30/18 01:03 07/30/18 03:27 White Blood Count 5.0 # Red Blood Count 3.29 L Hemoglobin 9.5 L Hematocrit 29.8 L Mean Corpuscular 90.6 Volume Mean Corpuscular 28.9 L Hemoglobin Mean Corpuscular 31.9 L Hemoglobin Concent Red Cell 13.8 Distribution Width Platelet Count 264 # Mean Platelet Volume 9.9 Immature 0.200 Granulocytes % Neutrophils % 48.1 Lymphocytes % 38.6 Monocytes % 11.7 H Eosinophils % 1.0 Basophils % 0.4 Nucleated Red Blood 0.0 Cells % Immature 0.010 Granulocytes # Neutrophils # 2.4 Lymphocytes # 1.9 Monocytes # 0.6 Eosinophils # 0.1 Basophils # 0.0 Nucleated Red Blood 0.0 Cells # Prothrombin Time 12.7 Prothrombin Time 1.0 Ratio INR International 0.94 Normalized Ratio Activated 30.0 Partial Thromboplast Time Urine Color YELLOW Urine Clarity CLEAR Urine pH 7.0 Urine Specific 1.011 [place] Urine Ketones NEGATIVE Urine Nitrite NEGATIVE Urine Bilirubin NEGATIVE Urine Urobilinogen NEGATIVE Urine Leukocyte NEGATIVE Esterase Urine Microscopic 3 RBC Urine Microscopic 3 WBC Urine Hemoglobin 1+ H Urine Glucose NEGATIVE Urine Total Protein NEGATIVE Sodium Level 138 Potassium Level 4.1 Chloride Level 105 Carbon Dioxide Level 25 Anion Gap 8 Blood Urea Nitrogen 24 H Creatinine 0.87 Est Glomerular Filtrat Rate mL/min Glucose Level 124 Calcium Level 8.9 Total Bilirubin 0.4 Direct Bilirubin 0.00 Indirect Bilirubin 0.4 Aspartate Amino 26 Transf (AST/SGOT) Alanine 11 L Aminotransferase (AL T/SGPT) Alkaline Phosphatase 75 Troponin I 0.017 Total Protein 7.3 Albumin 3.6 Globulin 3.70 H Albumin/Globulin 0.97 Ratio POC Venous Lactate 1.3 Lactic Acid Level 1.4 1.0 Test 07/30/18 03:30 07/30/18 10:00 White Blood Count 4.1 L Red Blood Count 3.12 L Hemoglobin 8.7 L Hematocrit 28.1 L Mean Corpuscular 90.1 Volume Mean Corpuscular 27.9 L Hemoglobin Mean Corpuscular 31.0 L Hemoglobin Concent Red Cell 14.0 Distribution Width Platelet Count 220 Mean Platelet Volume 9.6 Immature 0.200 Granulocytes % Neutrophils % 41.9 Lymphocytes % 43.9 Monocytes % 11.5 H Eosinophils % 2.0 Basophils % 0.5 Nucleated Red Blood 0.0 Cells % Immature 0.010 Granulocytes # Neutrophils # 1.7 Lymphocytes # 1.8 Monocytes # 0.5 Eosinophils # 0.1 Basophils # 0.0 Nucleated Red Blood 0.0 Cells # Sodium Level 141 Potassium Level 3.5 Chloride Level 110 Carbon Dioxide Level 24 Anion Gap 7 Blood Urea Nitrogen 21 H Creatinine 0.78 Est Glomerular Filtrat Rate mL/min Glucose Level 105 Calcium Level 8.1 L Total Bilirubin 0.2 Direct Bilirubin 0.00 Indirect Bilirubin 0.2 Aspartate Amino 16 Transf (AST/SGOT) Alanine 14 Aminotransferase (AL T/SGPT) Alkaline Phosphatase 70 Total Protein 6.1 # Albumin 2.9 L Globulin 3.20 Albumin/Globulin 0.90 Ratio Urine Color STRAW Urine Clarity CLEAR Urine pH 7.0 Urine Specific 1.008 [place] Urine Ketones NEGATIVE Urine Nitrite NEGATIVE Urine Bilirubin NEGATIVE Urine Urobilinogen NEGATIVE Urine Leukocyte 1+ H Esterase Urine Microscopic 14 H RBC Urine Microscopic 17 H WBC Urine Hemoglobin 1+ H Urine Glucose NEGATIVE Urine Total Protein NEGATIVE Medications Medication Current Medications Ondansetron HCl (Zofran Inj) 4 mg BRIDGE ORDER PRN IV NAUSEA/VOMITING; Start 07/30/18 at 01:30; Stop 07/31/18 at 01:29 Acetaminophen (Tylenol Tab) 650 mg ER BRIDGE PRN PO .MILD PAIN 1-3 OR TEMP; Start 07/30/18 at 01:30; Stop 07/31/18 at 01:29 Sodium Chloride 1,000 ml @ 75 mls/hr [id number] IV Last administered on 07/30/18at 03:25; Admin Dose 75 MLS/HR; Start 07/30/18 at 02:05; Stop 07/30/18 at 15:24 IV Flush (NS 3 ml) 3 ml PER PROTOCOL IV ; Start 07/30/18 at 02:30 Ondansetron HCl (Zofran Inj) 4 mg Q6H PRN IV NAUSEA/VOMITING; Start 07/30/18 at 02:30 Acetaminophen (Tylenol Tab) 650 mg Q6H PRN PO .PAIN 1-3 OR TEMP Last administered on 07/30/18at 10:03; Admin Dose 650 MG; Start 07/30/18 at 02:30 Docusate Sodium (Colace) 100 mg Q12H PRN PO .CONSTIPATION; Start 07/30/18 at 02:30 Bisacodyl (Dulcolax) 5 mg DAILY PRN PO .CONSTIPATION; Start 07/30/18 at 02:30 Docusate Sodium (Colace) 100 mg BID PO Last administered on 07/30/18at 10:00; Admin Dose 100 MG; Start 07/30/18 at 02:30 Polyethylene Glycol (Miralax) 17 gm DAILY PO Last administered on 07/30/18at 10:00; Admin Dose 17 GM; Start 07/30/18 at 02:30 Hydralazine HCl (Apresoline) 10 mg Q6H PRN IV ELEVATED SYSTOLIC BP; Start 07/30/18 at 04:30 Tramadol HCl (Ultram) 50 mg Q6H PRN PO MODERATE PAIN LEVEL 4-6; Start 07/30/18 at 05:00 JEFRY GARZA Jul 30, 2018 14:11
[2018-07-30 15:01] VITALS: BP 149/60; PULSE 69; RESP 18
[2018-07-30] MEDS: CEFTRIAXONE 1 GM/50 ML (PMX) 50 ML IVPB SCH (18:43)
[2018-07-30] MEDS: SOD CHLORIDE 0.9% 1,000 ML IV SCH (18:43)
[2018-07-30 20:00] VITALS: BP 149/68; PULSE 67; RESP 18
--- NOTE | 2018-07-30 20:46 | CONS ---
Assessment/Plan Assessment/Plan Hospital Course (Demo Recall) 87-year-old female known to have a history of Parkinson's disease, CAD, hypertension, gastric cancer? 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 She was admitted with fever and urinary tract infection. She was found to have bilateral hydronephrosis and distended urinary bladder. A Francois catheter was inserted and over 500 mL The patient has been on Ditropan XL and most likely was prescribed to her because of urinary incontinence. That has a side effect of severe constipation and some time urinary retention. Therefore I recommended to stop the Ditropan XL, and if it is possible to stop the ipratropium bromide that also may help. As far as the rectal prolapse it is pronounced and may be considering a general surgery or rectal surgery consult. Consultation Date/Type/Reason Admit Date/Time Jul 30, 2018 at 01:18 Date of Consultation: Jul 30, 2018 Type of Consult Urology Reason for Consultation Urinary retention and bilateral hydronephrosis Requesting Provider: MANUEL ESPINOSA Date/Time of Note DATE: 07/30/18 TIME: 20:25 Hx of Present Illness 87-year-old female was brought to the emergency room because of 3 to 4 days hist ory of fever. Patient was diagnosed with urinary tract infection and has been on antibiotic. On admission CT scan did show bilateral hydronephrosis and very distended urinary bladder. A Francois catheter was inserted and a urological consultation was therefore requested. Patient is known to have multiple medical problems that include: 1. Acute dehydration with weakness 2. Recent urinary tract infection, she does have an indwelling Francois catheter now 3. Bilateral hydronephrosis: This was also present on previous admission. This is chronic in nature. 4. Constipation: Patient had a similar presentation during previous admission. She was at that time discontinued amlodipine and MS Contin, she does appear to be however on these medications at home except for MS Contin. She was started on [place]. 5. Parkinson's disease: Supportive care and continue pramipexole 5. History of rectal prolapse 6. Hypertension 7. Depression 8. Chronic spinal fracture: Pain meds as needed Subjective hx not possible: pt non-verbal Constitutional: febrile (On admission) Eyes: no complaints ENT: no complaints Respiratory: no complaints; No wheezing Cardiovascular: No chest pain Gastrointestinal: constipation Genitourinary: bleeding, dysuria, other (Urinary retention) Musculoskeletal: no complaints Skin: No erythema Neurologic: no complaints Endocrine: no complaints Lymphatic: no complaints Psychological: anxiety Past Medical History Medical History: cancer, coronary artery disease, hypertension, other (Parkinson's disease, CAD, hypertension, gastric cancer? anemia, rectal prolapse, depression, T11 burst fracture, multiple chronic compression fracture of the spine.) Home Meds Active Scripts Docusate Sodium* (Colace*) 100 Mg Capsule, 100 MG PO DAILY, #30 CAP Prov:PARAMJIT CUNNINGHAM MD 05/03/18 Pantoprazole* (Protonix*) 40 Mg Tablet.dr, 40 MG PO DAILY, #20 TAB Prov:PARAMJIT CUNNINGHAM MD 05/03/18 Reported Medications Polyethylene Glycol 3350 (Clearlax) 119 Gm Powder, 119 GM PO 07/30/18 Phenazopyridine Hcl* (Phenazopyridine Hcl*) 100 Mg Tablet, 100 MG 07/30/18 Medications Current Medications IV Flush (NS 3 ml) 3 ml PER PROTOCOL IV ; Start 07/30/18 at 02:30 Ondansetron HCl (Zofran Inj) 4 mg Q6H PRN IV NAUSEA/VOMITING; Start 07/30/18 at 02:30 Acetaminophen (Tylenol Tab) 650 mg Q6H PRN PO .PAIN 1-3 OR TEMP Last administered on 07/30/18at 10:03; Admin Dose 650 MG; Start 07/30/18 at 02:30 Docusate Sodium (Colace) 100 mg Q12H PRN PO .CONSTIPATION; Start 07/30/18 at 02:30 Bisacodyl (Dulcolax) 5 mg DAILY PRN PO .CONSTIPATION; Start 07/30/18 at 02:30 Docusate Sodium (Colace) 100 mg BID PO Last administered on 07/30/18at 10:00; Admin Dose 100 MG; Start 07/30/18 at 02:30 Polyethylene Glycol (Miralax) 17 gm DAILY PO Last administered on 07/30/18at 10:00; Admin Dose 17 GM; Start 07/30/18 at 02:30 Hydralazine HCl (Apresoline) 10 mg Q6H PRN IV ELEVATED SYSTOLIC BP; Start 07/30/18 at 04:30 Tramadol HCl (Ultram) 50 mg Q6H PRN PO MODERATE PAIN LEVEL 4-6; Start 07/30/18 at 05:00 Sodium Chloride 1,000 ml @ 75 mls/hr [id number] IV Last administered on 07/30/18at 18:43; Admin Dose 75 MLS/HR; Start 07/30/18 at 18:00 Ceftriaxone Sodium 50 ml @ 100 mls/hr Q24H IVPB Last administered on 07/30/18at 18:43; Admin Dose 100 MLS/HR; Start 07/30/18 at 18:00 Allergies: Coded Allergies: No Known Allergies (Unverified Allergy, Mild, 07/30/18) Past Surgical History Past Surgical Hx: other (Upper mid abdominal scar from unknown surgery) Family History Significant Family History: no pertinent family hx Social History Alcohol Use: none Smoking Status: Never smoker Drug Use: none Exam/Review of Systems Exam Vitals Vital Signs Date Temp Pulse Resp B/P (MAP) Pulse Ox O2 O2 Flow FiO2 Time Delivery Rate 07/30/18 98.1 69 18 149/60 99 15:01 (89) 07/30/18 Room Air 02:19 Intake and Output 07/29/18 07/29/18 07/30/18 1515:00 23:00 07:00 IntakeIntake Total 1410 ml OutputOutput Total 400 ml BalanceBalance 1010 ml Constitutional: alert Psych: no complaints Head: normocephalic Eyes: nl conjunctiva ENMT: nl external ears & nose Neck: supple, non-tender Respiratory: normal air movement; No wheezing Cardiovascular: regular rate and rhythm; No jugular venous distention (JVD) Gastrointestinal: soft, surgical scars (The upper abdomen midline), other (She has a very large rectal prolapse. It is reducible) Genitourinary - Female: nl adnexae Musculoskeletal: nl extremities to inspection Extremities: normal pulses, tenderness Neurological: nl mental status Results Result Diagram: 07/30/18 0330 07/30/18 0330 Results 24hrs Laboratory Tests Test 07/29/18 23:04 07/29/18 23:11 07/30/18 01:03 07/30/18 03:27 White Blood Count 5.0 # Red Blood Count 3.29 L Hemoglobin 9.5 L Hematocrit 29.8 L Mean Corpuscular 90.6 Volume Mean Corpuscular 28.9 L Hemoglobin Mean Corpuscular 31.9 L Hemoglobin Concent Red Cell 13.8 Distribution Width Platelet Count 264 # Mean Platelet Volume 9.9 Immature 0.200 Granulocytes % Neutrophils % 48.1 Lymphocytes % 38.6 Monocytes % 11.7 H Eosinophils % 1.0 Basophils % 0.4 Nucleated Red Blood 0.0 Cells % Immature 0.010 Granulocytes # Neutrophils # 2.4 Lymphocytes # 1.9 Monocytes # 0.6 Eosinophils # 0.1 Basophils # 0.0 Nucleated Red Blood 0.0 Cells # Prothrombin Time 12.7 Prothrombin Time 1.0 Ratio INR International 0.94 Normalized Ratio Activated 30.0 Partial Thromboplast Time Urine Color YELLOW Urine Clarity CLEAR Urine pH 7.0 Urine Specific 1.011 [place] Urine Ketones NEGATIVE Urine Nitrite NEGATIVE Urine Bilirubin NEGATIVE Urine Urobilinogen NEGATIVE Urine Leukocyte NEGATIVE Esterase Urine Microscopic 3 RBC Urine Microscopic 3 WBC Urine Hemoglobin 1+ H Urine Glucose NEGATIVE Urine Total Protein NEGATIVE Sodium Level 138 Potassium Level 4.1 Chloride Level 105 Carbon Dioxide Level 25 Anion Gap 8 Blood Urea Nitrogen 24 H Creatinine 0.87 Est Glomerular Filtrat Rate mL/min Glucose Level 124 Calcium Level 8.9 Total Bilirubin 0.4 Direct Bilirubin 0.00 Indirect Bilirubin 0.4 Aspartate Amino 26 Transf (AST/SGOT) Alanine 11 L Aminotransferase (AL T/SGPT) Alkaline Phosphatase 75 Troponin I 0.017 Total Protein 7.3 Albumin 3.6 Globulin 3.70 H Albumin/Globulin 0.97 Ratio POC Venous Lactate 1.3 Lactic Acid Level 1.4 1.0 Test 07/30/18 03:30 07/30/18 10:00 White Blood Count 4.1 L Red Blood Count 3.12 L Hemoglobin 8.7 L Hematocrit 28.1 L Mean Corpuscular 90.1 Volume Mean Corpuscular 27.9 L Hemoglobin Mean Corpuscular 31.0 L Hemoglobin Concent Red Cell 14.0 Distribution Width Platelet Count 220 Mean Platelet Volume 9.6 Immature 0.200 Granulocytes % Neutrophils % 41.9 Lymphocytes % 43.9 Monocytes % 11.5 H Eosinophils % 2.0 Basophils % 0.5 Nucleated Red Blood 0.0 Cells % Immature 0.010 Granulocytes # Neutrophils # 1.7 Lymphocytes # 1.8 Monocytes # 0.5 Eosinophils # 0.1 Basophils # 0.0 Nucleated Red Blood 0.0 Cells # Sodium Level 141 Potassium Level 3.5 Chloride Level 110 Carbon Dioxide Level 24 Anion Gap 7 Blood Urea Nitrogen 21 H Creatinine 0.78 Est Glomerular Filtrat Rate mL/min Glucose Level 105 Calcium Level 8.1 L Total Bilirubin 0.2 Direct Bilirubin 0.00 Indirect Bilirubin 0.2 Aspartate Amino 16 Transf (AST/SGOT) Alanine 14 Aminotransferase (AL T/SGPT) Alkaline Phosphatase 70 Total Protein 6.1 # Albumin 2.9 L Globulin 3.20 Albumin/Globulin 0.90 Ratio Urine Color STRAW Urine Clarity CLEAR Urine pH 7.0 Urine Specific 1.008 [place] Urine Ketones NEGATIVE Urine Nitrite NEGATIVE Urine Bilirubin NEGATIVE Urine Urobilinogen NEGATIVE Urine Leukocyte 1+ H Esterase Urine Microscopic 14 H RBC Urine Microscopic 17 H WBC Urine Hemoglobin 1+ H Urine Glucose NEGATIVE Urine Total Protein NEGATIVE Medications Medication Current Medications IV Flush (NS 3 ml) 3 ml PER PROTOCOL IV ; Start 07/30/18 at 02:30 Ondansetron HCl (Zofran Inj) 4 mg Q6H PRN IV NAUSEA/VOMITING; Start 07/30/18 at 02:30 Acetaminophen (Tylenol Tab) 650 mg Q6H PRN PO .PAIN 1-3 OR TEMP Last administered on 07/30/18at 10:03; Admin Dose 650 MG; Start 07/30/18 at 02:30 Docusate Sodium (Colace) 100 mg Q12H PRN PO .CONSTIPATION; Start 07/30/18 at 02:30 Bisacodyl (Dulcolax) 5 mg DAILY PRN PO .CONSTIPATION; Start 07/30/18 at 02:30 Docusate Sodium (Colace) 100 mg BID PO Last administered on 07/30/18at 10:00; Admin Dose 100 MG; Start 07/30/18 at 02:30 Polyethylene Glycol (Miralax) 17 gm DAILY PO Last administered on 07/30/18at 10:00; Admin Dose 17 GM; Start 07/30/18 at 02:30 Hydralazine HCl (Apresoline) 10 mg Q6H PRN IV ELEVATED SYSTOLIC BP; Start 07/30/18 at 04:30 Tramadol HCl (Ultram) 50 mg Q6H PRN PO MODERATE PAIN LEVEL 4-6; Start 07/30/18 at 05:00 Sodium Chloride 1,000 ml @ 75 mls/hr [id number] IV Last administered on 07/30/18at 18:43; Admin Dose 75 MLS/HR; Start 07/30/18 at 18:00 Ceftriaxone Sodium 50 ml @ 100 mls/hr Q24H IVPB Last administered on 07/30/18at 18:43; Admin Dose 100 MLS/HR; Start 07/30/18 at 18:00 NIC CHAPPELL MD Jul 30, 2018 20:35
[2018-07-31 02:00] VITALS: BP 122/58; PULSE 74; RESP 18
[2018-07-31 07:57] VITALS: BP 139/65; PULSE 68; RESP 16
[2018-07-31] MEDS: SOD CHLORIDE 0.9% 1,000 ML IV SCH (08:55)
[2018-07-31] MEDS: DOCUSATE SODIUM 100 MG CAP PO SCH ×2 (08:56→22:14)
[2018-07-31] MEDS: POLYETHYLENE GLYCOL 17 GM PACKET PO SCH (08:56)
[2018-07-31 14:32] VITALS: BP 121/64; PULSE 70; RESP 18
--- NOTE | 2018-07-31 14:38 | PN ---
Date/Time of Note Date/Time of Note DATE: 07/31/18 TIME: 14:37 Assessment/Plan VTE Prophylaxis Risk score (from Nsg)>0 risk: 6 SCD applied (from Nsg): Yes Pharmacological prophylaxis: LMWH Lines/Catheters IV Catheter Type (from Nrsg): Peripheral IV Urinary Cath still in place: Yes Reason Cath still needed: urinary retention Assessment/Plan Hospital Course SUBJECTIVE: Lying in bed comfortably. Patient refused to have physical therapy evaluation. OBJECTIVE: Vital signs-see below PHYSICAL EXAM: Constitutional: Elderly female,not in acute distress. HEENT: Head atraumatic and normocephalic. Eyes: Extraocular muscles intact. Anicteric sclerae. Pupils equal bilaterally, reactive to light. NECK: Supple without lymph node. CHEST: Clear and good breath sounds equally. No wheezing. No rhonchi. HEART: S1, S2. Regular rate and rhythm. ABDOMEN: Soft/non tender with no rebound tenderness. Bowel sounds were present. EXTREMITIES: No cyanosis, clubbing or edema. NEUROLOGIC: Alert and oriented x3. No focal deficit. No sensory deficit. PSYCHOSOCIAL: No signs of depression. INTEGUMENTARY: No open wounds. ASSESSMENT AND PLAN:87 yo F w/ Parkinson's disease, rectal prolapse, hypertension, depression, chronic spinal fracture, progressive debility, chronic bilateral hydronephrosis, UTI, here with 3 to 4-day duration of fevers, also found to have a distended urinary bladder. Urinary retention requiring Francois -Appreciate urology follow-up. Most likely secondary to Ditropan XL -Follow final urine cultures isn-[id number] antibiotic in 24 hours Recent UTI -Continue antibiotic and follow final urine cultures. Constipation -Stable now. Continue stool softeners and laxatives. Chronic bilateral hydronephrosis -No further inpatient work-up indicated. Please note Francois in place Parkinson's disease -Continue home medications Rectal prolapse -No acute inpatient work-up indicated. Defer outpatient follow-up Hypertension -Continue home medications Depression -Continue Lexapro Progressive debility with chronic spinal fractures -PT eval -Pain control -Most likely needing ECF Chronic anemia -Stable H&H. DVT prophylaxis: Lovenox Disposition: Continue with physical therapy evaluation. DC planning to [facility] facility pending PT recommendations. Patient was seen in collaboration with Dr. Young. Result Diagram: 07/31/18 0446 07/31/18 0446 Results 24hrs Laboratory Tests Test 07/31/18 04:46 White Blood Count 5.4 # Red Blood Count 3.44 L Hemoglobin 9.5 L Hematocrit 31.0 L Mean Corpuscular Volume 90.1 Mean Corpuscular Hemoglobin 27.6 L Mean Corpuscular Hemoglobin Concent 30.6 L Red Cell Distribution Width 14.0 Platelet Count 256 Mean Platelet Volume 9.6 Immature Granulocytes % 0.400 Neutrophils % 58.0 Lymphocytes % 28.4 Monocytes % 10.6 Eosinophils % 2.4 Basophils % 0.2 Nucleated Red Blood Cells % 0.0 Immature Granulocytes # 0.020 Neutrophils # 3.1 Lymphocytes # 1.5 Monocytes # 0.6 Eosinophils # 0.1 Basophils # 0.0 Nucleated Red Blood Cells # 0.0 Sodium Level 144 Potassium Level 4.1 Chloride Level 112 H Carbon Dioxide Level 23 Anion Gap 9 Blood Urea Nitrogen 22 H Creatinine 0.80 Est Glomerular Filtrat Rate mL/min Glucose Level 81 Calcium Level 8.3 L Total Bilirubin 0.1 L Direct Bilirubin 0.00 Indirect Bilirubin 0.1 Aspartate Amino Transf (AST/SGOT) 17 Alanine Aminotransferase (ALT/SGPT) 18 Alkaline Phosphatase 75 Total Protein 6.5 Albumin 2.9 L Globulin 3.60 H Albumin/Globulin Ratio 0.80 Exam/Review of Systems Exam Vitals Vital Signs Date Temp Pulse Resp B/P (MAP) Pulse Ox O2 O2 Flow FiO2 Time Delivery Rate 07/31/18 98.2 68 16 139/65 96 07:57 (89) 07/30/18 Room Air 02:19 Intake and Output 07/30/18 07/30/18 07/31/18 1515:00 23:00 07:00 IntakeIntake Total 300 ml 2350 ml 1700 ml OutputOutput Total 1500 ml 1200 ml BalanceBalance 300 ml 850 ml 500 ml Results Results 24hrs Laboratory Tests Test 07/31/18 04:46 White Blood Count 5.4 # Red Blood Count 3.44 L Hemoglobin 9.5 L Hematocrit 31.0 L Mean Corpuscular Volume 90.1 Mean Corpuscular Hemoglobin 27.6 L Mean Corpuscular Hemoglobin Concent 30.6 L Red Cell Distribution Width 14.0 Platelet Count 256 Mean Platelet Volume 9.6 Immature Granulocytes % 0.400 Neutrophils % 58.0 Lymphocytes % 28.4 Monocytes % 10.6 Eosinophils % 2.4 Basophils % 0.2 Nucleated Red Blood Cells % 0.0 Immature Granulocytes # 0.020 Neutrophils # 3.1 Lymphocytes # 1.5 Monocytes # 0.6 Eosinophils # 0.1 Basophils # 0.0 Nucleated Red Blood Cells # 0.0 Sodium Level 144 Potassium Level 4.1 Chloride Level 112 H Carbon Dioxide Level 23 Anion Gap 9 Blood Urea Nitrogen 22 H Creatinine 0.80 Est Glomerular Filtrat Rate mL/min Glucose Level 81 Calcium Level 8.3 L Total Bilirubin 0.1 L Direct Bilirubin 0.00 Indirect Bilirubin 0.1 Aspartate Amino Transf (AST/SGOT) 17 Alanine Aminotransferase (ALT/SGPT) 18 Alkaline Phosphatase 75 Total Protein 6.5 Albumin 2.9 L Globulin 3.60 H Albumin/Globulin Ratio 0.80 Medications Medication Current Medications IV Flush (NS 3 ml) 3 ml PER PROTOCOL IV ; Start 07/30/18 at 02:30 Ondansetron HCl (Zofran Inj) 4 mg Q6H PRN IV NAUSEA/VOMITING; Start 07/30/18 at 02:30 Acetaminophen (Tylenol Tab) 650 mg Q6H PRN PO .PAIN 1-3 OR TEMP Last administered on 07/30/18at 21:30; Admin Dose 650 MG; Start 07/30/18 at 02:30 Docusate Sodium (Colace) 100 mg Q12H PRN PO .CONSTIPATION; Start 07/30/18 at 02:30 Bisacodyl (Dulcolax) 5 mg DAILY PRN PO .CONSTIPATION; Start 07/30/18 at 02:30 Docusate Sodium (Colace) 100 mg BID PO Last administered on 07/31/18at 08:56; Admin Dose 100 MG; Start 07/30/18 at 02:30 Polyethylene Glycol (Miralax) 17 gm DAILY PO Last administered on 07/31/18at 08:56; Admin Dose 17 GM; Start 07/30/18 at 02:30 Hydralazine HCl (Apresoline) 10 mg Q6H PRN IV ELEVATED SYSTOLIC BP; Start 07/30/18 at 04:30 Tramadol HCl (Ultram) 50 mg Q6H PRN PO MODERATE PAIN LEVEL 4-6; Start 07/30/18 at 05:00 Sodium Chloride 1,000 ml @ 75 mls/hr [id number] IV Last administered on 07/31/18at 08:55; Admin Dose 75 MLS/HR; Start 07/30/18 at 18:00 Ceftriaxone Sodium 50 ml @ 100 mls/hr Q24H IVPB Last administered on 07/30/18at 18:43; Admin Dose 100 MLS/HR; Start 07/30/18 at 18:00 HEENA GONZALEZ NP Jul 31, 2018 14:38
[2018-07-31] MEDS: CEFTRIAXONE 1 GM/50 ML (PMX) 50 ML IVPB SCH (18:09)
--- NOTE | 2018-07-31 18:40 | CONS ---
Consult Date/Type/Reason Admit Date/Time Jul 31, 2018 at 09:51 Initial Consult Date 07/30/18 Type of Consultation: Urology Reason for Consultation Urinary retention and bilateral hydronephrosis Requesting Provider: MANUEL ESPINOSA Date/Time of Note DATE: 07/31/18 TIME: 18:36 Subjective The patient appears the same. Objective Vitals Vital Signs Date Temp Pulse Resp B/P (MAP) Pulse Ox O2 O2 Flow FiO2 Time Delivery Rate 07/31/18 98.1 70 18 121/64 98 14:32 (83) 07/30/18 Room Air 02:19 Intake and Output 07/30/18 07/30/18 07/31/18 1515:00 23:00 07:00 IntakeIntake Total 300 ml 2350 ml 1700 ml OutputOutput Total 1500 ml 1200 ml BalanceBalance 300 ml 850 ml 500 ml Exam Francois catheter is draining clear urine and she still has a rectal prolapse. Results/Medications Result Diagram: 07/31/18 0446 07/31/18 0446 Results 24 hrs Laboratory Tests Test 07/31/18 04:46 White Blood Count 5.4 # Red Blood Count 3.44 L Hemoglobin 9.5 L Hematocrit 31.0 L Mean Corpuscular Volume 90.1 Mean Corpuscular Hemoglobin 27.6 L Mean Corpuscular Hemoglobin Concent 30.6 L Red Cell Distribution Width 14.0 Platelet Count 256 Mean Platelet Volume 9.6 Immature Granulocytes % 0.400 Neutrophils % 58.0 Lymphocytes % 28.4 Monocytes % 10.6 Eosinophils % 2.4 Basophils % 0.2 Nucleated Red Blood Cells % 0.0 Immature Granulocytes # 0.020 Neutrophils # 3.1 Lymphocytes # 1.5 Monocytes # 0.6 Eosinophils # 0.1 Basophils # 0.0 Nucleated Red Blood Cells # 0.0 Sodium Level 144 Potassium Level 4.1 Chloride Level 112 H Carbon Dioxide Level 23 Anion Gap 9 Blood Urea Nitrogen 22 H Creatinine 0.80 Est Glomerular Filtrat Rate mL/min Glucose Level 81 Calcium Level 8.3 L Total Bilirubin 0.1 L Direct Bilirubin 0.00 Indirect Bilirubin 0.1 Aspartate Amino Transf (AST/SGOT) 17 Alanine Aminotransferase (ALT/SGPT) 18 Alkaline Phosphatase 75 Total Protein 6.5 Albumin 2.9 L Globulin 3.60 H Albumin/Globulin Ratio 0.80 Home Meds Active Scripts Docusate Sodium* (Colace*) 100 Mg Capsule, 100 MG PO DAILY, #30 CAP Prov:PARAMJIT CUNNINGHAM MD 05/03/18 Pantoprazole* (Protonix*) 40 Mg Tablet.dr, 40 MG PO DAILY, #20 TAB Prov:PARAMJIT CUNNINGHAM MD 05/03/18 Reported Medications Polyethylene Glycol 3350 (Clearlax) 119 Gm Powder, 119 GM PO 07/30/18 Phenazopyridine Hcl* (Phenazopyridine Hcl*) 100 Mg Tablet, 100 MG 07/30/18 Medications Current Medications IV Flush (NS 3 ml) 3 ml PER PROTOCOL IV ; Start 07/30/18 at 02:30 Ondansetron HCl (Zofran Inj) 4 mg Q6H PRN IV NAUSEA/VOMITING; Start 07/30/18 at 02:30 Acetaminophen (Tylenol Tab) 650 mg Q6H PRN PO .PAIN 1-3 OR TEMP Last administered on 07/30/18at 21:30; Admin Dose 650 MG; Start 07/30/18 at 02:30 Docusate Sodium (Colace) 100 mg Q12H PRN PO .CONSTIPATION; Start 07/30/18 at 02:30 Bisacodyl (Dulcolax) 5 mg DAILY PRN PO .CONSTIPATION; Start 07/30/18 at 02:30 Docusate Sodium (Colace) 100 mg BID PO Last administered on 07/31/18at 08:56; Admin Dose 100 MG; Start 07/30/18 at 02:30 Polyethylene Glycol (Miralax) 17 gm DAILY PO Last administered on 07/31/18at 08:56; Admin Dose 17 GM; Start 07/30/18 at 02:30 Hydralazine HCl (Apresoline) 10 mg Q6H PRN IV ELEVATED SYSTOLIC BP; Start 07/30/18 at 04:30 Tramadol HCl (Ultram) 50 mg Q6H PRN PO MODERATE PAIN LEVEL 4-6; Start 07/30/18 at 05:00 Ceftriaxone Sodium 50 ml @ 100 mls/hr Q24H IVPB Last administered on 07/31/18at 18:09; Admin Dose 100 MLS/HR; Start 07/30/18 at 18:00 Enoxaparin Sodium (Lovenox) 30 mg DAILY SC ; Start 08/01/18 at 09:00 Assessment/Plan Hospital Course (Demo Recall) 87-year-old female known to have a history of Parkinson's disease, CAD, hypertension, gastric cancer? 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 She was admitted with fever and urinary tract infection. She was found to have bilateral hydronephrosis and distended urinary bladder. A Francois catheter was inserted and over 500 mL drained out. The patient has been on Ditropan XL and most likely was prescribed to her because of urinary incontinence. That has a side effect of severe constipation and some time urinary retention. Therefore I recommended to stop the Ditropan XL, and if it is possible to stop the ipratropium bromide that also may help. She still has rectal prolapse. Consider general surgery consultation. I will discontinue the Francois catheter in a.m. see if she voids and check her postvoid residual. Do straight cath on her for a postvoid residual of 300 mL and if she does not void and the bladder scan shows over 500 mL NIC CHAPPELL MD Jul 31, 2018 18:40
[2018-07-31 20:00] VITALS: BP 158/73; PULSE 76; RESP 18
[2018-08-01 02:00] VITALS: BP 152/74; PULSE 82; RESP 18
[2018-08-01 08:59] VITALS: BP 145/67; PULSE 77; RESP 20
[2018-08-01] MEDS ORDERED: ENOXAPARIN 30 MG/0.3 ML SYG SC SCH (09:00)
[2018-08-01] MEDS: DOCUSATE SODIUM 100 MG CAP PO SCH (09:04)
[2018-08-01] MEDS: POLYETHYLENE GLYCOL 17 GM PACKET PO SCH (09:04)
--- NOTE | 2018-08-01 12:23 | PDOCDIS ---
Discharge Instructions CONDITION [id number] Patient Condition: [id number] Stable HOME CARE INSTRUCTIONS: [id number] Diet Instructions: [id number] Regular FOLLOW UP/APPOINTMENTS Follow-up Plan Follow up with primary care doctor in 1week-you need outpatient follow up with a colorectal surgeon for rectal prolapse HEENA GONZALEZ NP Aug 01, 2018 12:23
[2018-08-01] MEDS ORDERED: CIPR500T4 PO (12:25)
--- NOTE | 2018-08-01 12:32 | DS ---
Date/Time of Note Date/Time of Note DATE: 08/01/18 TIME: 12:29 Discharge Summary Admission/Discharge Info Admit Date/Time Jul 31, 2018 at 09:51 Discharge Date/Time Discharge Diagnosis Urinary retention, likely secondary to Ditropan XL /recurrent UTI.resolved Recurrent UTI Constipation Chronic bilateral hydronephrosis Parkinson's disease Chronic Rectal prolapse Hypertension Depression Progressive debility with chronic spinal fractures Chronic anemia Patient Condition: Stable Consults Procedures 07/30/2018: CT abdomen and pelvis: IMPRESSION: 1. Excessive retained stool throughout the colon, consistent with constipation. 2. Moderate sized hiatal hernia. 3. Mild bilateral hydronephrosis. The ureters are mildly dilated. No obstructing calculi seen on either side. Changes may be secondary to elevated urinary tract pressures from chronic bladder outlet obstruction. This is unchanged from the previous study. 4. The liver demonstrates decreased attenuation, consistent with hepatic steatosis. 5. Rectal prolapse noted, unchanged. 6. There is no significant interval change from the previous study of 05/22/2018. Hospital Course 87 yo F w/ Parkinson's disease, rectal prolapse, hypertension, depression, chronic spinal fracture, progressive debility, chronic bilateral hydronephrosis, UTI, here with 3 to 4-day duration of fevers, also found to have a distended urinary bladder. Patient was treated for urinary tract infection. She was also evaluated by urologist and urinary retention required Francois catheter. Most likely retention was caused by UTI and patient taking Ditropan XL. Patient did well. She was also treated for constipation successfully. Francois catheter was discontinued after 24 hours and patient was able to void without any difficulties with postvoid residual 0. Patient was continued on home medication for underlying comorbidities. Patient was recommended to go to a [facility] after physical therapy evaluation for which they were not receptive to it. Patient and family opted to go home with home health agency. Patient was also counseled on following up with surgical evaluation as outpatient for underlying chronic rectal prolapse unchanged from prior. Approximately 60 m spent on coordinating the discharge on this patient. Patient was seen in collaboration with Dr. Pritchett. Home Meds Active Scripts Ciprofloxacin Hcl* (Ciprofloxacin Hcl*) 500 Mg Tablet, 500 MG PO BID, #10 TAB Prov:HEENA GONZALEZ V. STEM ROLLER OPERATOR 08/01/18 Docusate Sodium* (Colace*) 100 Mg Capsule, 100 MG PO DAILY, #30 CAP Prov:PARAMJIT CUNNINGHAM MD 05/03/18 Pantoprazole* (Protonix*) 40 Mg Tablet.dr, 40 MG PO DAILY, #20 TAB Prov:PARAMJIT CUNNINGHAM MD 05/03/18 Reported Medications Polyethylene Glycol 3350 (Clearlax) 119 Gm Powder, 119 GM PO 07/30/18 Phenazopyridine Hcl* (Phenazopyridine Hcl*) 100 Mg Tablet, 100 MG 07/30/18 Follow-up Plan Follow up with primary care doctor in 1week-you need outpatient follow up with a colorectal surgeon for rectal prolapse Primary Care Provider Not On Staff Doctor Pending Labs Laboratory Tests Test 08/01/18 06:56 White Blood Count 6.6 10^3/ul (4.8-10.8) Red Blood Count 3.53 10^6/ul (4.20-5.40) Hemoglobin 9.8 g/dl (12.0-16.0) Hematocrit 31.7 % (37.0-47.0) Mean Corpuscular Volume 89.8 fl (82.0-101.0) Mean Corpuscular Hemoglobin 27.8 pg (29.0-33.0) Mean Corpuscular Hemoglobin Concent 30.9 g/dl (32.0-37.0) Red Cell Distribution Width 14.4 % (11.5-14.5) Platelet Count 263 10^3/UL (140-415) Mean Platelet Volume 9.6 fl (7.4-10.4) Immature Granulocytes % 0.500 % (0.001-0.429) Neutrophils % 62.7 % (39.0-77.0) Lymphocytes % 24.9 % (15.0-51.0) Monocytes % 9.8 % (0.0-11.0) Eosinophils % 1.8 % (0.0-7.0) Basophils % 0.3 % (0.0-2.0) Nucleated Red Blood Cells % 0.0 /100WBC (0.0-0.0) Immature Granulocytes # 0.030 10^3/ul (0.0-0.031) Neutrophils # 4.2 10^3/ul (1.6-7.5) Lymphocytes # 1.7 10^3/ul (0.8-2.9) Monocytes # 0.7 10^3/ul (0.3-0.9) Eosinophils # 0.1 10^3/ul (0.0-0.5) Basophils # 0.0 10^3/ul (0.0-0.1) Nucleated Red Blood Cells # 0.0 10^3/ul (0.0-0.0) Sodium Level 143 mmol/L (135-144) Potassium Level 3.8 mmol/L (3.5-5.1) Chloride Level 113 mmol/L (97-110) Carbon Dioxide Level 22 mmol/L (21-31) Anion Gap 8 (5-13) Blood Urea Nitrogen 29 mg/dl (7-20) Creatinine 0.79 mg/dl (0.44-1.00) Est Glomerular Filtrat Rate mL/min mL/min (>60) Glucose Level 119 mg/dl (70-220) Calcium Level 8.8 mg/dl (8.4-10.2) Total Bilirubin 0.2 mg/dl (0.2-1.3) Direct Bilirubin 0.00 mg/dl (0.00-0.20) Indirect Bilirubin 0.2 mg/dl (0-1.1) Aspartate Amino Transf (AST/SGOT) 15 IU/L (15-46) Alanine Aminotransferase (ALT/SGPT) 11 IU/L (13-69) Alkaline Phosphatase 77 IU/L (42-121) Total Protein 6.3 g/dl (6.1-8.1) Albumin 3.0 g/dl (3.3-4.9) Globulin 3.30 g/dl (1.3-3.2) Albumin/Globulin Ratio 0.90 HEENA GONZALEZ V. [employer] RO[employer]ER OPERATOR Aug 01, 2018 12:32
--- NOTE | 2018-08-01 14:05 | CONS ---
Consult Date/Type/Reason Admit Date/Time Jul 31, 2018 at 09:51 Initial Consult Date 07/30/18 Type of Consultation: Urology Reason for Consultation Urinary retention Requesting Provider: MANUEL ESPINOSA Date/Time of Note DATE: 08/01/18 TIME: 14:02 Subjective Patient has been incontinent after the Francois catheter was removed. Objective Vitals Vital Signs Date Temp Pulse Resp B/P (MAP) Pulse Ox O2 O2 Flow FiO2 Time Delivery Rate 08/01/18 98.3 77 20 145/67 95 08:59 (93) 07/30/18 Room Air 02:19 Intake and Output 07/31/18 07/31/18 08/01/18 1515:00 23:00 07:00 IntakeIntake Total 600 ml 2050 ml 200 ml OutputOutput Total 2000 ml 1100 ml BalanceBalance 600 ml 50 ml -900 ml Exam The patient has been incontinent and the bladder scan did show 19 mL postvoid residual however I had the nurse do straight cath on her and she drained 200 mL. Results/Medications Result Diagram: 08/01/18 0656 08/01/18 0656 Results 24 hrs Laboratory Tests Test 08/01/18 06:56 White Blood Count 6.6 # Red Blood Count 3.53 L Hemoglobin 9.8 L Hematocrit 31.7 L Mean Corpuscular Volume 89.8 Mean Corpuscular Hemoglobin 27.8 L Mean Corpuscular Hemoglobin Concent 30.9 L Red Cell Distribution Width 14.4 Platelet Count 263 Mean Platelet Volume 9.6 Immature Granulocytes % 0.500 H Neutrophils % 62.7 Lymphocytes % 24.9 Monocytes % 9.8 Eosinophils % 1.8 Basophils % 0.3 Nucleated Red Blood Cells % 0.0 Immature Granulocytes # 0.030 Neutrophils # 4.2 Lymphocytes # 1.7 Monocytes # 0.7 Eosinophils # 0.1 Basophils # 0.0 Nucleated Red Blood Cells # 0.0 Sodium Level 143 Potassium Level 3.8 Chloride Level 113 H Carbon Dioxide Level 22 Anion Gap 8 Blood Urea Nitrogen 29 H Creatinine 0.79 Est Glomerular Filtrat Rate mL/min Glucose Level 119 Calcium Level 8.8 Total Bilirubin 0.2 Direct Bilirubin 0.00 Indirect Bilirubin 0.2 Aspartate Amino Transf (AST/SGOT) 15 Alanine Aminotransferase (ALT/SGPT) 11 L Alkaline Phosphatase 77 Total Protein 6.3 Albumin 3.0 L Globulin 3.30 H Albumin/Globulin Ratio 0.90 Home Meds Active Scripts Ciprofloxacin Hcl* (Ciprofloxacin Hcl*) 500 Mg Tablet, 500 MG PO BID, #10 TAB Prov:HEENA GONZALEZ NP 08/01/18 Docusate Sodium* (Colace*) 100 Mg Capsule, 100 MG PO DAILY, #30 CAP Prov:PARAMJIT CUNNINGHAM MD 05/03/18 Pantoprazole* (Protonix*) 40 Mg Tablet.dr, 40 MG PO DAILY, #20 TAB Prov:PARAMJIT CUNNINGHAM MD 05/03/18 Reported Medications Polyethylene Glycol 3350 (Clearlax) 119 Gm Powder, 119 GM PO 07/30/18 Phenazopyridine Hcl* (Phenazopyridine Hcl*) 100 Mg Tablet, 100 MG 07/30/18 Medications Current Medications IV Flush (NS 3 ml) 3 ml PER PROTOCOL IV ; Start 07/30/18 at 02:30 Ondansetron HCl (Zofran Inj) 4 mg Q6H PRN IV NAUSEA/VOMITING; Start 07/30/18 at 02:30 Acetaminophen (Tylenol Tab) 650 mg Q6H PRN PO .PAIN 1-3 OR TEMP Last administered on 07/30/18at 21:30; Admin Dose 650 MG; Start 07/30/18 at 02:30 Docusate Sodium (Colace) 100 mg Q12H PRN PO .CONSTIPATION; Start 07/30/18 at 02:30 Bisacodyl (Dulcolax) 5 mg DAILY PRN PO .CONSTIPATION; Start 07/30/18 at 02:30 Docusate Sodium (Colace) 100 mg BID PO Last administered on 08/01/18at 09:04; Admin Dose 100 MG; Start 07/30/18 at 02:30 Polyethylene Glycol (Miralax) 17 gm DAILY PO Last administered on 08/01/18at 09:04; Admin Dose 17 GM; Start 07/30/18 at 02:30 Hydralazine HCl (Apresoline) 10 mg Q6H PRN IV ELEVATED SYSTOLIC BP; Start 07/30/18 at 04:30 Tramadol HCl (Ultram) 50 mg Q6H PRN PO MODERATE PAIN LEVEL 4-6; Start 07/30/18 at 05:00 Ceftriaxone Sodium 50 ml @ 100 mls/hr Q24H IVPB Last administered on 07/31/18at 18:09; Admin Dose 100 MLS/HR; Start 07/30/18 at 18:00 Enoxaparin Sodium (Lovenox) 30 mg DAILY SC Last administered on 08/01/18at 09:04; Admin Dose 30 MG; Start 08/01/18 at 09:00 Assessment/Plan Hospital Course (Demo Recall) 87-year-old female known to have a history of Parkinson's disease, CAD, hypertension, gastric cancer? 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 She was admitted with fever and urinary tract infection. She was found to have bilateral hydronephrosis and distended urinary bladder. A Francois catheter was inserted and over 500 mL drained out. The patient has been on Ditropan XL and most likely was prescribed to her lydia garcia of urinary incontinence. That has a side effect of severe constipation and some time urinary retention. Therefore I recommended to stop the Ditropan XL, and if it is possible to stop the ipratropium bromide that also may help. She still has rectal prolapse. Consider general surgery consultation. The Francois catheter has been removed and the patient has been incontinent. The bladder scan did show 19 mL however by straight cath 200 mL drained out. Since he has been incontinent that means she may be voiding but not emptying completely. We will not insert the catheter and she may be discharged without the catheter. NIC CHAPPELL MD Aug 01, 2018 14:04
[2018-08-01 14:57] VITALS: BP 134/67; PULSE 76; RESP 18
[2018-08-01 16:00] VITALS: BP 141/75; PULSE 78; RESP 16
== END 2018-08-01 16:00 | disposition home health service (06) | DRG 690 ==
LOC: E/R 22:35 → PP2 07-30 01:18 → OBSVTOIN 07-31 09:51
PROVIDERS: ADMIT Family Medicine; ATTEND Family Medicine
DX: N39.0 Urinary tract infection, site not specified (principal); S22.081A Stable burst fracture of T11-T12 vertebra, initial encounter for closed fracture; R33.9 Retention of urine, unspecified; N13.30 Unspecified hydronephrosis; R50.9 Fever, unspecified; G20 Parkinson's disease; I10 Essential (primary) hypertension; E86.0 Dehydration; K59.00 Constipation, unspecified; F32.9 Major depressive disorder, single episode, unspecified; K62.3 Rectal prolapse; D64.9 Anemia, unspecified; K44.9 Diaphragmatic hernia without obstruction or gangrene; K76.0 Fatty (change of) liver, not elsewhere classified
CPT/HCPCS: 36415; 71045; 74176; 80053; 81001; 83605; 84484; 85025; 85610; 85730; 87045; 87086; 93005; 96365; 96375; 97110; 97161; 97530; G0378; A4310; J0692; J0696; J1650; J3370; J7030